=== PATIENT | male | born 1965 | race Caucasian/White ===

== ENCOUNTER → 2017-06-05 16:31 | Outpatient (CLI) | payer OTHER, SELFPAY ==
--- NOTE | 2017-06-05 16:37 | RAD_ITS ---
STUDY: X-RAY - LUMBAR SPINE REASON FOR EXAM: Male, 51 years old. Chronic low back pain. TECHNIQUE: 5 view(s) of the lumbar spine were obtained including oblique views. COMPARISON: None FINDINGS: Normal lumbar lordosis. There is no substantial scoliosis. There is a normal alignment of the vertebrae. Mild anterior spondylosis at the L3-L4 and L4-L5 levels. Normal disc space heights. There is atherosclerotic calcification of the abdominal aorta without a demonstrated aneurysm. RAD/L/S Spine Min 4 Views IMPRESSION: Degenerative changes of the spine, as detailed above. Electronically Signed: Harsh Marin MD at 14:42 EDT Tel [phone], Service support ,
== END ==
PROVIDERS: Family Provider Family Medicine; PCP Family Medicine; Visit Provider Chiropractor
DX: M99.05 Segmental and somatic dysfunction of pelvic region (principal); M99.02 Segmental and somatic dysfunction of thoracic region; M99.03 Segmental and somatic dysfunction of lumbar region
CPT/HCPCS: 72110

== ENCOUNTER 2018-12-31 16:32 | Inpatient (IN) | payer OTHER, SELFPAY ==
[2018-08-19 15:55] VITALS: BMI 28.7
[2018-12-31 16:34] VITALS: BP 103/69; PULSE 83; RESP 16; TEMP 36.3; O2SAT 99; BMI 25.0
--- NOTE | 2018-12-31 17:13 | CT_ITS ---
We are attempting to reach an attending provider to discuss findings. An addendum with communication details will be sent when the communication is complete. STUDY: CT ABDOMEN AND PELVIS WITHOUT CONTRAST REASON FOR EXAM: Male, 53 years old. Left lower quadrant pain. RADIATION DOSAGE (If Supplied By Facility): CTDIvol = ( 6.27 ) mGy, DLP = ( 291.54 ) mGycm TECHNIQUE: Transaxial images were obtained from the dome of the diaphragm to the symphysis pubis without oral contrast, and without intravenous contrast. Sagittal and coronal images were reconstructed. Individualized dose optimization techniques were used for this CT. COMPARISON: None. FINDINGS: The visualized lung bases are unremarkable. The visualized portions of the heart are within normal limits. There is pneumoperitoneum with free intraperitoneal air in the upper abdomen. Normal liver. Normal gallbladder and extrahepatic biliary system. Normal spleen. Normal pancreas. Normal bilateral adrenal glands. Normal right kidney. Normal left kidney. Normal visualized stomach. Normal small intestine. There is diverticulosis, with thickening of the distal descending and sigmoid colon wall, and left lower quadrant pericolonic inflammation changes consistent with acute diverticulitis, series 2 images 100/167 through 120/167. The appendix is visualized and appears normal. There is diffuse atherosclerotic calcification of the abdominal aorta, without a demonstrated aneurysm. Normal inferior vena cava. Normal retroperitoneum. Normal urinary bladder. There are prostatic calcifications. There is a small umbilical hernia containing fat. Normal osseous structures. CT/Abdomen/Pelvis without Cont IMPRESSION: Acute diverticulitis with perforation and free intraperitoneal air. Surgical consultation recommended. Electronically Signed: Rachid Toney MD at 17:57 EDT , Service support ,
--- NOTE | 2018-12-31 17:14 | ED.VISSUMM ---
- ER Visit Summary Date of Service: 12/31/18 Chief Complaint: Left lower quadrant pain History of Present Illness: The patient is a 53 M presenting with left lower quadrant pain. Patient states this started a few days ago. It worsened today. He states he had an episode in November that resolved and the pain started again a few days ago. He has a history of diverticulitis in the past. He denies fever. He has nausea with no vomiting. He denies diarrhea. He has had mild constipation. He did have a bowel movement today. Denies blood in his stool. No urinary complaints. No other complaints. Physical Examination: Vitals are stable. Patient is afebrile. Alert no acute distress. HEENT exam is unremarkable. Neck is supple. Lungs are clear and equal bilaterally. Heart is regular rate and rhythm. Abdomen is soft left lower quadrant tenderness with no rebound or guarding Extremities are unremarkable. Skin is warm and dry. Remainder of exam is unremarkable. Emergency Department Course and Treatment: Patient was given morphine, Zofran IV. CBC, chemistries unremarkable. CT abdomen pelvis shows acute diverticulitis with perforation and free intraperitoneal air. Surgical consultation recommended. Discussed with Dr. Barlow. Patient will be given Cipro Flagyl. He will evaluate the patient in the ED. Disposition: Admission Impression: Diverticulitis with perforation This note was generated with Pad[employer] dictation software. It may contain incorrect words, spelling, and punctuation that were not noted in review of the chart prior to signing ED Disposition - Plan for ED Patient:
[2018-12-31] MEDS: Ondansetron 4 MG/2 ML Vial IV (17:17)
[2018-12-31] MEDS: Morphine 4 MG/ML Syringe IV ×2 (17:17→18:00)
[2018-12-31 17:30] LABS: Absolute Lymphocyte Count 1.69 X10^3/uL (0.83-4.51); Absolute Neutrophil Count 7.1 X10^3/uL (2.0-7.7); Basophil# 0.03 X10^3/uL; Basophil% 0.3 % (0-1); Eosinophil# 0.13 X10^3/uL; Eosinophils% 1.4 % (0-5); Hematocrit 49.1 % (40-54); Hemoglobin 16.3 g/dL (13.0-16.5); Lymphocyte # 1.69 X10^3/ul (4.0); Lymphocyte % 17.8 % (19-41); Mean Corp Hgb Conc 33.2 g/dL (32-36); Mean Corpuscular Hgb 30.8 pg (27.0-32.0); Mean Corpuscular Volume 92.8 fL (80-94); Mean Platelet Vol. 9.9 fl (6.2-12.0); Monocyte# 0.53 X10^3/uL; Monocyte% 5.6 % (0-10); NRBC Flagged by Analyzer 0 % (0-5); Neutrophil # 7.11 X10^3/uL (2.7-7.7); Neutrophil % 74.6 % (47-70); Platelet Count 240 K/mm3 (150-450); RBC Distribution Width CV 12.8 % (11.6-14.6); RBC Distribution Width SD 43.8 fl (35.1-43.9); Red Blood Count 5.29 M/mm3 (4.6-6.2); White Blood Count 9.5 K/mm3 (4.4-11.0)
[2018-12-31 17:42] LABS: Anion Gap 6 (5-15); BUN 18 mg/dL (7-18); BUN/Creat Ratio 17.8 RATIO (10-20); Calcium,Total 8.8 mg/dL (8.5-10.1); Chloride 105 mmol/L (98-107); Creatinine, Serum 1.01 mg/dL (0.70-1.30); EST Glomerular Filtration Rate 82 mL/min (>60); Est Glom Filt Rate - Afr Amer 100 mL/min (>60); Estimated Creatinine Clearance 77.21 ml/min; Glucose 93 mg/dL (74-106); Potassium 4.1 mmol/L (3.5-5.1); Sodium Level 136 mmol/L (136-145)
[2018-12-31 17:58] LABS: Bacteria 0 SEEN /hpf (None Seen); Mucous, Urine 0 SEEN /hpf (<or=2+); Red Blood Cells-Urine 0 SEEN /hpf (0-5); Squamous Epithelial Cells - UA 0 SEEN /hpf (0-5); White Blood Cells 0 SEEN /hpf (0-5)
[2018-12-31 18:03] VITALS: BP 107/69; PULSE 88; RESP 18; O2SAT 98
[2018-12-31 18:34] LABS: Color, Urine Yellow (Yellow); Glucose, Dipstick Normal (Normal); Ketone-Dipstick 5 mg/dl (Negative); Leukocyte Esterase-Dipstick Negative /ul (Negative); Nitrite-Dipstick Negative (Negative); Occult Blood-Urine Negative /ul (Negative); Protein-Dipstick Negative (Negative); Specific Gravity, Urine 1.015 (1.002-1.030); Urine Bilirubin Dipstick Negative (Negative); Urine Clarity Clear (Clear); Urine Urobilinogen Normal (Normal)
[2018-12-31] MEDS: HYDROmorphone 0.5 MG/0.5 ML SYRINGE IV (18:37)
[2018-12-31] MEDS: Ciprofloxacin 400 MG/200 ML BAG 200 MG IV (18:43)
--- NOTE | 2018-12-31 19:16 | PCM.HP.STD ---
History of Present Illness Date of Admission: 12/31/18 Chief Complaint: abdominal pain/pneumoperitoneum The patient is a 53 year old M who presents to [facility] with the 4-5 hour history of abdominal pain. The patient is planning to go to his dentist today when he noted left lower quadrant abdominal pain and then more diffuse abdominal pain including his upper abdomen. Due to this rather significant pain he presented to [facility] emergency department. He had passed flatus earlier in the morning. He denies fever or chills. He notes no nausea or vomiting. On exam he was noted to have diffuse abdominal tenderness by the emergency physician. Laboratory studies were obtained which demonstrated a normal white blood cell count with a mild left shift otherwise normal laboratory studies. CT scan of the abdomen and pelvis was obtained. This demonstrated: FINDINGS: The visualized lung bases are unremarkable. The visualized portions of the heart are within normal limits. There is pneumoperitoneum with free intraperitoneal air in the upper abdomen. Normal liver. Normal gallbladder and extrahepatic biliary system. Normal spleen. Normal pancreas. Normal bilateral adrenal glands. Normal right kidney. Normal left kidney. Normal visualized stomach. Normal small intestine. There is diverticulosis, with thickening of the distal descending and sigmoid colon wall, and left lower quadrant pericolonic inflammation changes consistent with acute diverticulitis, series 2 images 100/167 through 120/167. The appendix is visualized and appears normal. There is diffuse atherosclerotic calcification of the abdominal aorta, without a demonstrated aneurysm. Normal inferior vena cava. Normal retroperitoneum. Normal urinary bladder. There are prostatic calcifications. There is a small umbilical hernia containing fat. Normal osseous structures. the patient was given Dilaudid which is improved his symptoms but he still notes pain. Past Medical History Past Medical History (Chronic Problems): Chronic Problems (Last Reviewed 12/03/18 @ 16:05 by Stephanie Jose) Depression with anxiety (Chronic) Alcohol abuse (Chronic) Tobacco use disorder (Chronic) Medical History: Medical History (Last Reviewed 12/03/18 @ 16:05 by Stephanie Jose) Segmental and somatic dysfunction of pelvic region (Acute) M99.05 Segmental and somatic dysfunction of thoracic region (Acute) M99.02 Segmental and somatic dysfunction of lumbar region (Acute) M99.03 Depression with anxiety (Chronic) Alcohol abuse (Chronic) F10.10 Tobacco use disorder (Chronic) F17.200 Allergies erythromycin base Allergy (Mild, Verified 12/31/18 16:34) itching shellfish derived Allergy (Verified 12/31/18 16:34) Swelling Home Medications: Ambulatory Orders Medication Instructions Recorded omeprazole 20 mg capsule,delayed 20 mg PO DAILY PRN 06/05/17 release Naproxen 500 mg PO DAILY PRN 12/31/18 Surgical History: noncontributory Smoking Status: Former smoker Review of Systems Constitutional: Reports: Fatigue. Denies: Chills, Fever, Weight Change HEENT: Denies: Head Aches, Sinus Congestion, Sinus Drainage Cardiovascular: Denies: Chest Pain, Palpitations Respiratory: Denies: Cough, Shortness of breath at rest, Sputum production Gastrointestinal: Reports: Abdominal Pain. Denies: Nausea, Vomiting Genitourinary: Denies: Dysuria Musculoskeletal: Denies: Joint Pain, Joint Tenderness Skin: Denies: Rash, Wounds Neurological: Denies: Numbness, Tingling, Focal weakness Psychiatric: Denies: Anxiety, Depression, Homicidal Ideations, Suicidal Ideations Hematologic/ Lymphatic: Denies: Easy Bruising, Easy Bleeding VTE Information - Inpt Only VTE Present on Admission: No VTE Mechan Device Prophylaxis: SCD's VTE Pharm Prophylaxis ordered?: No - Physical Exam General: Alert, Oriented x3, Cooperative Lungs: Clear to auscultation, Normal air movement Cardiovascular: Regular rate, No murmurs Abdomen: Bowel Sounds Present, Soft, - - mild diffuse pain with maximal tenderness in left lower quadrant. No diffuse peritoneal signs with some tenderness but not peritoneal findings to palpation in the left and right upper quadrants Vital Signs Temp Pulse Resp BP Pulse Ox 97.4 F L 88 18 107/69 98 12/31/18 16:34 12/31/18 18:03 12/31/18 18:03 12/31/18 18:03 12/31/18 18:03 Oxygen Delivery Method Room Air Weight: 70.307 kg Body Mass Index (BMI) 25.0 Intake and Output for Last 24 Hours 12/29/18 12/30/18 12/31/18 23:59 23:59 23:59 Intake Total 500 / 500 Balance 500 / 500 Laboratory Tests Past 24 Hrs 12/31/18 12/31/18 12/31/18 17:10 17:10 17:55 WBC 9.5 RBC 5.29 Hgb 16.3 Hct 49.1 MCV 92.8 MCH 30.8 MCHC 33.2 RDW Std Deviation 43.8 RDW Coeff of Minnie 12.8 Plt Count 240 MPV 9.9 Immature Gran % (Auto) 0.300 Neut % (Auto) 74.6 H Lymph % (Auto) 17.8 L [place] % (Auto) 5.6 Eos % (Auto) 1.4 Baso % (Auto) 0.3 Absolute Neuts (auto) 7.1 Absolute Lymphs (auto) 1.69 Nucleated RBC % 0 Sodium 136 Potassium 4.1 Chloride 105 Carbon Dioxide 25.0 Anion Gap 6 BUN 18 Creatinine 1.01 Estim Creat Clear Calc 77.21 Est GFR (MDRD) Af Amer 100 Est GFR (MDRD) Non-Af 82 BUN/Creatinine Ratio 17.8 Glucose 93 Calcium 8.8 Urine Color Yellow Urine Clarity Clear Urine pH 6.0 Ur Specific [place] 1.015 Urine Protein Negative Urine Glucose (UA) Normal Urine Ketones 5 H Urine Occult Blood Negative Urine Nitrite Negative Urine Bilirubin Negative Urine Urobilinogen Normal Ur Leukocyte Esterase Negative Urine RBC 0 SEEN Urine WBC 0 SEEN Ur Squamous Epith Cells 0 SEEN Urine Bacteria 0 SEEN Urine Mucus 0 SEEN Assessment/Plan All Active Problems (Last Reviewed 12/03/18 @ 16:05 by Stephanie Jose) Segmental and somatic dysfunction of cervical region (Acute) Segmental and somatic dysfunction of pelvic region (Acute) Segmental and somatic dysfunction of thoracic region (Acute) Segmental and somatic dysfunction of lumbar region (Acute) perforated appendicitis with small to moderate free air, normal white count My plan is to admit the patient for IV antibiotics, bowel rest and IV fluids. we will place SCDs for DVT prophylaxis. We will go with IV parenteral narcotics for pain control. I discussed with the patient and his my plan to hopefully allow to treat him conservatively given the risks of emergency resection and either primary anastomosis unprepped or colostomy. If the patient becomes increasingly septic or worsening symptoms would consider either diverting colostomy or attempt at laparoscopic irrigation given minimal signs of fluid or contamination beyond free air. The patient understands the options of emergency surgery versus IV antibiotic treatment and bowel rest and agrees with the current plan.
[2018-12-31 19:34] VITALS: BMI 25.3
[2018-12-31 19:40] VITALS: BP 110/70; PULSE 82; RESP 18; TEMP 37; O2SAT 100
[2018-12-31] MEDS: metroNIDAZOLE 500 MG/100 ML BAG 100 MG IV (20:05)
[2018-12-31] MEDS: HYDROmorphone 1 MG/ML Syringe IV ×2 (20:47→23:35)
[2018-12-31] MEDS: Lactated Ringers 1,000 ML 100 ML IV (22:17)
[2018-12-31] MEDS: 0.9% Saline Lock 10 ML Syringe IV (22:18)
[2019-01-01 02:00] VITALS: BP 96/58; PULSE 80; RESP 18; TEMP 36.7; O2SAT 100
[2019-01-01 03:55] VITALS: BP 102/60
[2019-01-01] MEDS: HYDROmorphone 1 MG/ML Syringe IV ×8 (03:57→23:11)
[2019-01-01] MEDS: metroNIDAZOLE 500 MG/100 ML BAG 100 MG IV ×3 (05:23→21:13)
[2019-01-01 06:33] LABS: ALB/GLOB Ratio 1.3 RATIO (0.9-2.4); AST(SGOT) 20 U/L (15-37); Alanine Aminotransfer ALT/SGPT 30 U/L (16-61); Albumin, Serum 3.3 g/dL (3.2-5.0); Alkaline Phosphatase 60 U/L (45-117); Anion Gap 5 (5-15); BUN 12 mg/dL (7-18); BUN/Creat Ratio 13.3 RATIO (10-20); Chloride 108 mmol/L (98-107); EST Glomerular Filtration Rate 94 mL/min (>60); Est Glom Filt Rate - Afr Amer 114 mL/min (>60); Estimated Creatinine Clearance 86.64 ml/min; Globulin 2.6 g/dL (2.2-4.2); Glucose 114 mg/dL (74-106); Potassium 4.5 mmol/L (3.5-5.1); Protein, Total 5.9 g/dL (6.4-8.2); Sodium Level 140 mmol/L (136-145)
[2019-01-01 06:59] LABS: Absolute Lymphocyte Count 0.93 X10^3/uL (0.83-4.51); Basophil# 0.02 X10^3/uL; Basophil% 0.2 % (0-1); Differential Indicated SCAN CRITERIA MET; Eosinophil# 0.01 X10^3/uL; Eosinophils% 0.1 % (0-5); Hematocrit 42.5 % (40-54); Lymphocyte # 0.93 X10^3/ul (4.0); Lymphocyte % 7.2 % (19-41); Mean Corp Hgb Conc 32.9 g/dL (32-36); Mean Corpuscular Hgb 31.2 pg (27.0-32.0); Mean Corpuscular Volume 94.7 fL (80-94); Mean Platelet Vol. 9.8 fl (6.2-12.0); Monocyte# 0.86 X10^3/uL; Monocyte% 6.7 % (0-10); NRBC Flagged by Analyzer 0 % (0-5); Neutrophil # 11.01 X10^3/uL (2.7-7.7); Neutrophil % 85.2 % (47-70); POSITIVE MORPHOLOGY YES; Platelet Count 187 K/mm3 (150-450); RBC Distribution Width CV 12.8 % (11.6-14.6); RBC Distribution Width SD 44.7 fl (35.1-43.9); Red Blood Count 4.49 M/mm3 (4.6-6.2); White Blood Count 12.9 K/mm3 (4.4-11.0)
[2019-01-01 07:00] LABS: Differential Comment SCANNED
[2019-01-01 08:00] VITALS: BP 95/58; PULSE 81; RESP 18; TEMP 37.2; O2SAT 100
[2019-01-01] MEDS: Lactated Ringers 1,000 ML 100 ML IV ×2 (08:53→18:41)
[2019-01-01] MEDS: 0.9% Saline Lock 10 ML Syringe IV ×3 (08:53→16:13)
[2019-01-01] MEDS: Ciprofloxacin 400 MG/200 ML BAG 200 MG IV ×2 (10:34→22:19)
--- NOTE | 2019-01-01 14:40 | CASEMGMT ---
RN CM Face to Face with patient for initial transition planning/care coordination assessment. RN CM introduced self and role at [facility]. Patient lying in bed, alert and oriented. Patient willing to participate in assessment and is able to answer all questions appropriately. Care providers, pharmacy, and demographics verified. Patient wishes to discharge home, denies need for home health at this time. Patient states he has no further needs or concerns at this time. EDIS RubyMahsa Oakley updated with diagnosis of alcohol abuse. CM to follow for discharge planning needs that may arise. PCP: Cecilio Specialists: None Preferred Pharmacy: [facility] Insurance: [facility] Prescription Benefit:yes Living Will/HPOA: yes, Ra Carline Alvarez LNOK: Living Arrangements: Patient lives with in a 1 story home with 1 step to enter the home. Patient states he is independent at home. Transportation: self/ DME/HHC: Patient denies DME or previous HHC. Disposition Plan: Patient to discharge home with family support and follow-up plans in place. Rosalinda BLANCON, RN, CM
[2019-01-01 16:13] VITALS: BP 114/68; PULSE 87; RESP 18; TEMP 36.7; O2SAT 100
--- NOTE | 2019-01-01 18:19 | PN.SURG_ITS ---
Subjective: less diffuse pain, more localized to LLQ - Physical Exam General: Alert, Oriented x3, Cooperative Lungs: Clear to auscultation, Normal air movement Cardiovascular: Regular rate, No murmurs Abdomen: Soft, Hypoactive Bowel Sounds, Tender - LLQ Vital Signs Temp Pulse Resp BP Pulse Ox 98.0 F 87 18 114/68 100 01/01/19 16:13 01/01/19 16:13 01/01/19 16:13 01/01/19 16:13 01/01/19 16:13 Oxygen Delivery Method Room Air Weight: 71.214 kg Body Mass Index (BMI) 25.3 Intake and Output for Last 24 Hours 12/30/18 12/31/18 01/01/19 23:59 23:59 23:59 Intake Total 800 / 800 1361.67 / 1361.67 Balance 800 / 800 1361.67 / 1361.67 Laboratory Tests Past 24 Hrs 12/31/18 01/01/19 01/01/19 17:55 05:40 05:40 WBC 12.9 H RBC 4.49 L Hgb 14.0 Hct 42.5 MCV 94.7 H MCH 31.2 MCHC 32.9 RDW Std Deviation 44.7 H RDW Coeff of Minnie 12.8 Plt Count 187 MPV 9.8 Immature Gran % (Auto) 0.600 Neut % (Auto) 85.2 H Lymph % (Auto) 7.2 L [place] % (Auto) 6.7 Eos % (Auto) 0.1 Baso % (Auto) 0.2 Absolute Neuts (auto) 11.0 H Absolute Lymphs (auto) 0.93 Nucleated RBC % 0 Differential Comment SCANNED Sodium 140 Potassium 4.5 Chloride 108 H Carbon Dioxide 27.0 Anion Gap 5 BUN 12 Creatinine 0.90 Estim Creat Clear Calc 86.64 Est GFR (MDRD) Af Amer 114 Est GFR (MDRD) Non-Af 94 BUN/Creatinine Ratio 13.3 Glucose 114 H Calcium 8.0 L Total Bilirubin 1.90 H AST 20 ALT 30 Alkaline Phosphatase 60 Total Protein 5.9 L Albumin 3.3 Globulin 2.6 Albumin/Globulin Ratio 1.3 Urine Color Yellow Urine Clarity Clear Urine pH 6.0 Ur Specific [place] 1.015 Urine Protein Negative Urine Glucose (UA) Normal Urine Ketones 5 H Urine Occult Blood Negative Urine Nitrite Negative Urine Bilirubin Negative Urine Urobilinogen Normal Ur Leukocyte Esterase Negative Urine RBC 0 SEEN Urine WBC 0 SEEN Ur Squamous Epith Cells 0 SEEN Urine Bacteria 0 SEEN Urine Mucus 0 SEEN Medical Necessity - Tobacco Use Smoking Status: Former smoker Tobacco Use: Chew Assessment/Plan All Active Problems (Last Reviewed 12/03/18 @ 16:05 by Stephanie Jose) Segmental and somatic dysfunction of cervical region (Acute) Segmental and somatic dysfunction of pelvic region (Acute) Segmental and somatic dysfunction of thoracic region (Acute) Segmental and somatic dysfunction of lumbar region (Acute) perforated appendicitis with small to moderate free air, normal white count My plan is to admit the patient for IV antibiotics, bowel rest and IV fluids. we will place SCDs for DVT prophylaxis. We will go with IV parenteral narcotics for pain control. I discussed with the patient and his my plan to hopefully allow to treat him conservatively given the risks of emergency resection and either primary anastomosis unprepped or colostomy. If the patient becomes increasingly septic or worsening symptoms would consider either diverting colostomy or attempt at laparoscopic irrigation given minimal signs of fluid or contamination beyond free air. The patient understands the options of emergency surgery versus IV antibiotic treatment and bowel rest and agrees with the current plan.
[2019-01-01 18:50] VITALS: BP 128/68; PULSE 94; RESP 16; O2SAT 96
[2019-01-01 19:37] VITALS: BP 109/60; PULSE 98; RESP 16; TEMP 36.9; O2SAT 96
[2019-01-02] MEDS: HYDROmorphone 1 MG/ML Syringe IV ×5 (01:11→19:40)
[2019-01-02 01:13] VITALS: BP 105/65; PULSE 88; RESP 16; TEMP 36.7; O2SAT 96
[2019-01-02] MEDS: Lactated Ringers 1,000 ML 100 ML IV ×2 (05:20→18:10)
[2019-01-02] MEDS: metroNIDAZOLE 500 MG/100 ML BAG 100 MG IV ×3 (05:22→22:25)
--- NOTE | 2019-01-02 06:00 | RAD_ITS ---
HISTORY: Abdominal PainRAD - Abdomen ADDITIONAL HISTORY: None. COMPARISON: CT 12/31/2018 Technique: Supine and upright abdominal radiograph. Number of images including paperwork: 3 FINDINGS: FREE AIR: None detected. BOWEL GAS PATTERN: Nonobstructive. CALCIFICATIONS: No definite urinary tract calculi. ORGANS: No evidence of organomegaly. SOFT TISSUES: Unremarkable. BONES: No acute skeletal findings. Basilar linear opacities suggestive of subsegmental atelectasis. RAD/Abd Inc Decub and/or Erect IMPRESSION: No acute abdominal abnormality is radiographically apparent. at 0555 Reported and signed by: Alka Gupta MD Electronically Signed: Alka Gupta MD at 5:55 EDT Tel , Service support ,
[2019-01-02 06:39] LABS: Absolute Lymphocyte Count 0.62 X10^3/uL (0.83-4.51); Absolute Neutrophil Count 10.2 X10^3/uL (2.0-7.7); Basophil# 0.02 X10^3/uL; Basophil% 0.2 % (0-1); Eosinophil# 0.09 X10^3/uL; Eosinophils% 0.8 % (0-5); Hematocrit 40.1 % (40-54); Hemoglobin 13.2 g/dL (13.0-16.5); Lymphocyte # 0.62 X10^3/ul (4.0); Lymphocyte % 5.2 % (19-41); Mean Corp Hgb Conc 32.9 g/dL (32-36); Mean Corpuscular Hgb 31.4 pg (27.0-32.0); Mean Corpuscular Volume 95.2 fL (80-94); Mean Platelet Vol. 10.4 fl (6.2-12.0); Monocyte# 0.87 X10^3/uL; Monocyte% 7.3 % (0-10); NRBC Flagged by Analyzer 0 % (0-5); Neutrophil # 10.17 X10^3/uL (2.7-7.7); Neutrophil % 84.8 % (47-70); Platelet Count 170 K/mm3 (150-450); RBC Distribution Width CV 13.2 % (11.6-14.6); RBC Distribution Width SD 46.3 fl (35.1-43.9); Red Blood Count 4.21 M/mm3 (4.6-6.2)
[2019-01-02 06:58] LABS: AST(SGOT) 25 U/L (15-37); Alanine Aminotransfer ALT/SGPT 33 U/L (16-61); Albumin, Serum 3.1 g/dL (3.2-5.0); Alkaline Phosphatase 75 U/L (45-117); Anion Gap 5 (5-15); BUN 13 mg/dL (7-18); Calcium,Total 8.5 mg/dL (8.5-10.1); Chloride 104 mmol/L (98-107); Creatinine, Serum 0.87 mg/dL (0.70-1.30); EST Glomerular Filtration Rate 98 mL/min (>60); Est Glom Filt Rate - Afr Amer 119 mL/min (>60); Estimated Creatinine Clearance 89.63 ml/min; Glucose 104 mg/dL (74-106); Protein, Total 6.1 g/dL (6.4-8.2); Sodium Level 135 mmol/L (136-145)
--- NOTE | 2019-01-02 08:00 | PCM.PN.SRG ---
Subjective: less pain this morning, no flatus - Physical Exam General: Alert, Oriented x3 Lungs: Clear to auscultation, Normal air movement Cardiovascular: Regular rate, No murmurs Abdomen: Bowel Sounds Present, Soft, Tender - left lower quadrant, no diffuse peritoneal signs Vital Signs Temp Pulse Resp BP Pulse Ox 98.0 F 88 16 105/65 96 01/02/19 01:13 01/02/19 01:13 01/02/19 01:13 01/02/19 01:13 01/02/19 01:13 Oxygen Delivery Method Room Air Weight: 71.214 kg Body Mass Index (BMI) 25.3 Intake and Output for Last 24 Hours 12/31/18 01/01/19 01/02/19 23:59 23:59 23:59 Intake Total 800 / 800 3551.67 / 3551.67 648.33 / 648.33 Balance 800 / 800 3551.67 / 3551.67 648.33 / 648.33 Laboratory Tests Past 24 Hrs 01/02/19 01/02/19 05:54 05:54 WBC 12.0 H RBC 4.21 L Hgb 13.2 Hct 40.1 MCV 95.2 H MCH 31.4 MCHC 32.9 RDW Std Deviation 46.3 H RDW Coeff of Minnie 13.2 Plt Count 170 MPV 10.4 Immature Gran % (Auto) 1.700 H Neut % (Auto) 84.8 H Lymph % (Auto) 5.2 L [place] % (Auto) 7.3 Eos % (Auto) 0.8 Baso % (Auto) 0.2 Absolute Neuts (auto) 10.2 H Absolute Lymphs (auto) 0.62 L Nucleated RBC % 0 Sodium 135 L Potassium 4.0 Chloride 104 Carbon Dioxide 26.0 Anion Gap 5 BUN 13 Creatinine 0.87 Estim Creat Clear Calc 89.63 Est GFR (MDRD) Af Amer 119 Est GFR (MDRD) Non-Af 98 BUN/Creatinine Ratio 15.0 Glucose 104 Calcium 8.5 Total Bilirubin 1.40 H AST 25 ALT 33 Alkaline Phosphatase 75 Total Protein 6.1 L Albumin 3.1 L Globulin 3.0 Albumin/Globulin Ratio 1.0 Medical Necessity - Tobacco Use Smoking Status: Former smoker Tobacco Use: Chew Assessment/Plan All Active Problems (Last Reviewed 12/03/18 @ 16:05 by Stephanie Jose) Segmental and somatic dysfunction of cervical region (Acute) Segmental and somatic dysfunction of pelvic region (Acute) Segmental and somatic dysfunction of thoracic region (Acute) Segmental and somatic dysfunction of lumbar region (Acute) perforated appendicitis with small to moderate free air, normal white count My plan is to admit the patient for IV antibiotics and IV fluids. we will place SCDs for DVT prophylaxis. We will go with IV parenteral narcotics for pain control. We'll start liquids as his pain is improving. I discussed with the patient and his my plan to hopefully allow to treat him conservatively given the risks of emergency resection and either primary anastomosis unprepped or colostomy. If the patient becomes increasingly septic or worsening symptoms would consider either diverting colostomy or attempt at laparoscopic irrigation given minimal signs of fluid or contamination beyond free air. The patient understands the options of emergency surgery versus IV antibiotic treatment and bowel rest and agrees with the current plan.
[2019-01-02] MEDS: Ciprofloxacin 400 MG/200 ML BAG 200 MG IV ×2 (10:10→21:18)
[2019-01-02 10:15] VITALS: BP 136/78; PULSE 106; RESP 18; TEMP 36.7; O2SAT 96
--- NOTE | 2019-01-02 12:21 | CASEMGMT ---
SW spoke w/pt briefly in regard to mental health and alcohol use. SW asked pt initially about history of anxiety and depression. Pt denies that he is struggling with either, states is feeling fine mentally, not in treatment or on medication. SW also asked pt about history of alcohol abuse. Pt states he has a beer when he goes out, does not drink daily. Pt does not perceive his alcohol consumption as problematic. Pt declined any referrals or resources for mental health or alcohol abuse. SW remains available should any other needs arise. KATY Jolley
[2019-01-02 14:25] VITALS: BP 122/69; PULSE 88; RESP 16; TEMP 36.7; O2SAT 99
[2019-01-02] MEDS: oxyCODONE 5 MG Tablet PO (16:59)
[2019-01-02 19:43] VITALS: BP 127/74; PULSE 92; RESP 16; TEMP 37.7; O2SAT 98
[2019-01-02] MEDS: 0.9% Saline Lock 10 ML Syringe IV (21:14)
[2019-01-03] MEDS: HYDROmorphone 1 MG/ML Syringe IV ×7 (00:17→19:58)
[2019-01-03 01:42] VITALS: BP 122/75; PULSE 90; RESP 16; TEMP 37.1; O2SAT 99
[2019-01-03] MEDS: Lactated Ringers 1,000 ML 100 ML IV ×2 (05:33→17:46)
[2019-01-03] MEDS: metroNIDAZOLE 500 MG/100 ML BAG 100 MG IV ×3 (05:35→21:12)
--- NOTE | 2019-01-03 06:08 | CT_ITS ---
STUDY: CT ABDOMEN AND PELVIS WITHOUT CONTRAST REASON FOR EXAM: Male, 53 years old. Diverticulitis left lower quadrant abdominal pain RADIATION DOSAGE (If Supplied By Facility): CTDIvol = ( 6.45 ) mGy, DLP = ( 343.32 ) mGycm TECHNIQUE: Transaxial images were obtained from the dome of the diaphragm to the symphysis pubis without oral contrast, and without intravenous contrast. Sagittal and coronal images were reconstructed. Individualized dose optimization techniques were used for this CT. COMPARISON: CT abdomen and pelvis from 01/01/2019 FINDINGS: The visualized lung bases demonstrate bibasilar atelectasis with trace bilateral pleural effusions. The visualized portions of the heart demonstrates scattered coronary artery calcifications. Normal liver. Gallbladder is mildly dilated. Normal spleen. Normal pancreas. Normal bilateral adrenal glands. Normal right kidney. Normal left kidney. Normal visualized stomach. Normal small intestine. There are multiple colonic diverticula consistent with diverticulosis. There is fat stranding changes adjacent to the distal descending and proximal sigmoid colon within the left lower quadrant. Again seen are scattered locules of free intraperitoneal gas. The appendix is nonvisualized. There is diffuse atherosclerotic calcification of the abdominal aorta, without a demonstrated aneurysm. Normal inferior vena cava. Normal retroperitoneum. Normal urinary bladder. There is a small umbilical hernia containing fat. Normal osseous structures. CT/Abdomen/Pelvis without Cont IMPRESSION: Diverticulitis with relatively small amount of free intraperitoneal gas locules as seen on prior study. No evidence for abscess formation. Trace bilateral pleural effusions with lower lobe atelectasis which is new from comparison. Electronically Signed: [place], at 6:51 EDT Tel , Service support ,
[2019-01-03] MEDS: 0.9% Saline Lock 10 ML Syringe IV ×2 (06:40→19:58)
--- NOTE | 2019-01-03 06:40 | PCM.PN.SRG ---
Subjective: some increased left lower quadrant pain and pain through to his back, passing some flatus - Physical Exam General: Alert, Oriented x3, Cooperative Lungs: Clear to auscultation, Normal air movement Cardiovascular: Regular rate, No murmurs Abdomen: Bowel Sounds Present, Soft, Tender - left lower quadrant without diffuse peritoneal signs Vital Signs Temp Pulse Resp BP Pulse Ox 98.7 F 90 16 122/75 H 99 01/03/19 01:42 01/03/19 01:42 01/03/19 01:42 01/03/19 01:42 01/03/19 01:42 Oxygen Delivery Method Room Air Weight: 71.214 kg Body Mass Index (BMI) 25.3 Intake and Output for Last 24 Hours 01/01/19 01/02/19 01/03/19 23:59 23:59 23:59 Intake Total 3551.67 / 3551.67 3240.00 / 3240.00 750.00 / 750.00 Balance 3551.67 / 3551.67 3240.00 / 3240.00 750.00 / 750.00 Laboratory Tests Past 24 Hrs 01/02/19 05:54 Sodium 135 L Potassium 4.0 Chloride 104 Carbon Dioxide 26.0 Anion Gap 5 BUN 13 Creatinine 0.87 Estim Creat Clear Calc 89.63 Est GFR (MDRD) Af Amer 119 Est GFR (MDRD) Non-Af 98 BUN/Creatinine Ratio 15.0 Glucose 104 Calcium 8.5 Total Bilirubin 1.40 H AST 25 ALT 33 Alkaline Phosphatase 75 Total Protein 6.1 L Albumin 3.1 L Globulin 3.0 Albumin/Globulin Ratio 1.0 Medical Necessity - Tobacco Use Smoking Status: Former smoker Tobacco Use: Chew Assessment/Plan All Active Problems (Last Reviewed 12/03/18 @ 16:05 by Stephanie Jose) Segmental and somatic dysfunction of cervical region (Acute) Segmental and somatic dysfunction of pelvic region (Acute) Segmental and somatic dysfunction of thoracic region (Acute) Segmental and somatic dysfunction of lumbar region (Acute) perforated appendicitis with small to moderate free air, normal white count My plan is to admit the patient for IV antibiotics and IV fluids. we will place SCDs for DVT prophylaxis. We will go with IV parenteral narcotics for pain control. We'll start liquids as his pain is improving. patient noted his pain increased somewhat overnight low-grade fever, we will repeat CBC and repeat CT scan to assess for drainable collections. I discussed with the patient and his my plan to hopefully allow to treat him conservatively given the risks of emergency resection and either primary anastomosis unprepped or colostomy. If the patient becomes increasingly septic or worsening symptoms would consider either diverting colostomy or attempt at laparoscopic irrigation given minimal signs of fluid or contamination beyond free air. The patient understands the options of emergency surgery versus IV antibiotic treatment and bowel rest and agrees with the current plan.
[2019-01-03 07:15] LABS: Absolute Lymphocyte Count 0.51 X10^3/uL (0.83-4.51); Absolute Neutrophil Count 7.9 X10^3/uL (2.0-7.7); Basophil# 0.03 X10^3/uL; Basophil% 0.3 % (0-1); Eosinophil# 0.06 X10^3/uL; Eosinophils% 0.6 % (0-5); Hematocrit 40.7 % (40-54); Hemoglobin 13.4 g/dL (13.0-16.5); Lymphocyte # 0.51 X10^3/ul (4.0); Lymphocyte % 5.3 % (19-41); Mean Corp Hgb Conc 32.9 g/dL (32-36); Mean Corpuscular Hgb 31.1 pg (27.0-32.0); Mean Corpuscular Volume 94.4 fL (80-94); Mean Platelet Vol. 9.8 fl (6.2-12.0); Monocyte# 0.93 X10^3/uL; Monocyte% 9.7 % (0-10); NRBC Flagged by Analyzer 0 % (0-5); Neutrophil # 7.91 X10^3/uL (2.7-7.7); Neutrophil % 82.7 % (47-70); POSITIVE DIFFERENTIAL YES; Platelet Count 169 K/mm3 (150-450); RBC Distribution Width CV 12.8 % (11.6-14.6); RBC Distribution Width SD 44.3 fl (35.1-43.9); Red Blood Count 4.31 M/mm3 (4.6-6.2); White Blood Count 9.6 K/mm3 (4.4-11.0)
[2019-01-03 07:40] VITALS: BP 155/74; PULSE 85; RESP 18; TEMP 37.2; O2SAT 98
[2019-01-03] MEDS: Ciprofloxacin 400 MG/200 ML BAG 200 MG IV ×2 (09:43→22:21)
[2019-01-03 13:00] VITALS: RESP 18; O2SAT 99
[2019-01-03 15:00] VITALS: BP 141/87; PULSE 85; RESP 18; TEMP 36.8; O2SAT 99
[2019-01-03 20:00] VITALS: BP 137/82; PULSE 91; RESP 18; TEMP 37.2; O2SAT 98
[2019-01-03] MEDS: oxyCODONE 5 MG Tablet PO (21:11)
[2019-01-04 02:00] VITALS: BP 117/68; PULSE 66; RESP 18; TEMP 36.8; O2SAT 92
[2019-01-04] MEDS: oxyCODONE 5 MG Tablet PO ×2 (02:02→07:45)
[2019-01-04] MEDS: Lactated Ringers 1,000 ML 100 ML IV (05:11)
[2019-01-04] MEDS: metroNIDAZOLE 500 MG/100 ML BAG 100 MG IV (05:11)
--- NOTE | 2019-01-04 07:03 | DCINST_ITS ---
You will use the following diet at home:: Other - low residue until pain improved and moving bowels Discharge Activity: Return to Normal Activity Allergies/Adverse Reactions: Allergies erythromycin base Allergy (Mild, Verified 12/31/18 16:34) itching shellfish derived Allergy (Verified 12/31/18 16:34) Swelling Medications to take at Discharge omeprazole 20 mg capsule,delayed release 20 mg PO DAILY PRN 06/05/17 Naproxen 500 mg PO DAILY PRN 12/31/18 Ciprofloxacin [Cipro] 500 mg PO BID #20 tab 01/04/19 Metronidazole [Flagyl] 500 mg PO TID #30 tab 01/04/19 Oxycodone HCl/Acetaminophen [Percocet 5/325] 1 tab PO Q4H PRN PRN 3 Days #10 tab 01/04/19 The following prescriptions were given: Ciprofloxacin [Cipro] 500 mg PO BID #20 tab Prescription Printed Metronidazole [Flagyl] 500 mg PO TID #30 tab Prescription Printed Oxycodone HCl/Acetaminophen [Percocet 5/325] 1 tab PO Q4H PRN PRN 3 Days #10 tab PRN Reason: Pain Prescription Printed Primary Care Physician: Gabriel Hernandes III, MD [Primary Care Provider] - Test Results: Test results from this visit will be discussed in further detail at your follow- up appointment, if applicable. Please Follow Up With: Jerome Barlow MD When: sunday or
[2019-01-04 07:55] VITALS: BP 121/81; PULSE 82; RESP 18; TEMP 36.7; O2SAT 100
--- NOTE | 2019-01-04 09:35 | PCM.DC.SUM ---
Discharge Date and Diagnosis Date of Admission: 12/31/18 Date of Discharge: 01/04/19 - Primary Discharge Diagnosis diverticulitis - Secondary Discharge Diagnosis Chronic Problems (Last Reviewed 12/03/18 @ 16:05 by Stephnaie Jose) Depression with anxiety (Chronic) Alcohol abuse (Chronic) Tobacco use disorder (Chronic) Hospital Course and Treatment Operations: None Summary of Care Provided: The patient is a 53 year old M with a 1 day history of abdominal pain. CT scan demonstrated small amount of free air and proximal sigmoid inflammation. The patient was admitted, bowel rest and antibiotics. pain slowly improved. follow up CT scan demonstrated stable sigmoid inflammation and less and small amount of free air. He was passing flatus, afbrile with noramlizing WBC count and tolerating liquids. - Physical Exam General: Alert, Oriented x3, Cooperative Lungs: Clear to auscultation, Normal air movement Cardiovascular: Regular rate, No murmurs Abdomen: Bowel Sounds Present, Soft, Tender - LLQ Vital Signs Temp Pulse Resp BP Pulse Ox 98.1 F 82 18 121/81 H 100 01/04/19 07:55 01/04/19 07:55 01/04/19 07:55 01/04/19 07:55 01/04/19 07:55 Oxygen Delivery Method Room Air Weight: 71.214 kg Body Mass Index (BMI) 25.3 Intake and Output for Last 24 Hours 01/02/19 01/03/19 01/04/19 23:59 23:59 23:59 Intake Total 3240.00 / 3240.00 3711.66 / 3711.66 1111.67 / 1111.67 Balance 3240.00 / 3240.00 3711.66 / 3711.66 1111.67 / 1111.67 Discharge Activity: Return to Normal Activity Home Medications: Medications to take at Discharge omeprazole 20 mg capsule,delayed release 20 mg PO DAILY PRN 06/05/17 RX: Naproxen 500 mg PO DAILY PRN 12/31/18 Ciprofloxacin [Cipro] 500 mg PO BID #20 tab 01/04/19 Metronidazole [Flagyl] 500 mg PO TID #30 tab 01/04/19 Oxycodone HCl/Acetaminophen [Percocet 5/325] 1 tab PO Q4H PRN PRN 3 Days #10 tab 01/04/19 Following Prescrptions Were Given to Patient: Ciprofloxacin [Cipro] 500 mg PO BID #20 tab Prescription Printed Metronidazole [Flagyl] 500 mg PO TID #30 tab Prescription Printed Oxycodone HCl/Acetaminophen [Percocet 5/325] 1 tab PO Q4H PRN PRN 3 Days #10 tab PRN Reason: Pain Prescription Printed Primary Care Physician: Gabriel Hernandes III, MD [Primary Care Provider] - Please Follow Up With: Jerome Barlow MD When: sunday or Medical Necessity - Tobacco Use Smoking Status: Former smoker Tobacco Use: Chew Meaningful Use Info Meaningful Use Diagnoses (Choose all that apply): None applicable
== END 2019-01-04 08:55 | disposition home or self-care (01) | DRG 392 ==
LOC: ED 17:28 → MS3 19:13
PROVIDERS: Admitting Provider Surgery; Emergency Provider Emergency Medicine; Family Provider Family Medicine; PCP Family Medicine; Referring Provider Surgery; Visit Provider Surgery
DX: K57.20 Diverticulitis of large intestine with perforation and abscess without bleeding (principal); F10.10 Alcohol abuse, uncomplicated; F41.8 Other specified anxiety disorders; Z72.0 Tobacco use
CPT/HCPCS: 36415; 74019; 74176; 80048; 80053; 81001; 85025; 99285; J7030; J7120; A4216; J0744; J2405

== ENCOUNTER → 2020-05-20 08:13 | Outpatient (CLI) | payer OTHER, SELFPAY ==
[2018-12-31 19:34] VITALS: BMI 25.3
--- NOTE | 2020-05-20 08:19 | CT_ITS ---
STUDY: CT ABDOMEN AND PELVIS WITH CONTRAST REASON FOR EXAM: Male, 54 years old. DIVERTICULITIS/COLITIS -- ORAL AND IV CONTRAST RADIATION DOSAGE (If Supplied By Facility): CTDIvol = ( 13.11 ) mGy, DLP = ( 644.49 ) mGycm TECHNIQUE: Transaxial images were obtained from the dome of the diaphragm to the symphysis pubis with oral contrast. Oral and amp; IV Readi-CAT and amp; 100mL Isovue-300 was administered. Sagittal and coronal images were reconstructed. Individualized dose optimization techniques were used for this CT. COMPARISON: Comparison is made with prior study dated 01/03/2019. FINDINGS: The visualized lung bases are unremarkable. The visualized portions of the heart are within normal limits. Normal liver. Normal gallbladder and extrahepatic biliary system. Normal spleen. Normal pancreas. Normal bilateral adrenal glands. Normal right kidney. Normal left kidney. Normal visualized stomach. Normal small intestine. There are multiple colonic diverticula consistent with diverticulosis. The appendix is visualized and appears normal. There is scattered atherosclerotic calcification of the abdominal aorta, without a demonstrated aneurysm. Normal inferior vena cava. Normal retroperitoneum. Normal urinary bladder. There are prostatic calcifications. Normal abdominal wall. There are mild degenerative changes of the visualized lumbar spine. CT/Abdomen/Pelvis WITH Contrast IMPRESSION: Sigmoid diverticulosis. Electronically Signed: Harsh Marin MD at 9:33 EST , Service support ,
== END ==
PROVIDERS: PCP Family Medicine; Referring Provider Internal Medicine Gastroenterology; Visit Provider Internal Medicine Gastroenterology
DX: K57.92 Diverticulitis of intestine, part unspecified, without perforation or abscess without bleeding (principal); K52.9 Noninfective gastroenteritis and colitis, unspecified
CPT/HCPCS: 74177; Q9967

== ENCOUNTER 2021-06-07 06:33 | Outpatient (CLI) | payer OTHER, SELFPAY ==
[2021-06-08 17:04] LABS: Giardia Lamblia, Stool EIA Negative (Negative)
[2021-06-16 18:45] LABS: Calprotectin, Stool 17 ug/g (0-120)
== END 2021-06-07 23:59 | disposition home or self-care (01) ==
LOC: LABSPEC 06:34
PROVIDERS: PCP Family Medicine; Referring Provider Internal Medicine Gastroenterology; Visit Provider Internal Medicine Gastroenterology
DX: R19.7 Diarrhea, unspecified (principal)
CPT/HCPCS: 83630; 83993; 87329; 87493; 87506

== ENCOUNTER → 2021-07-14 | Outpatient (CLI) | payer OTHER, SELFPAY ==
[2021-07-14 07:04] LABS: Erythrocyte Sedimentation Rate 4 mm/hr (0-20)
[2021-07-14 07:06] LABS: Absolute Lymphocyte Count 1.81 X10^3/uL (0.83-4.51); Absolute Neutrophil Count 2.9 X10^3/uL (2.0-7.7); Basophil# 0.03 X10^3/uL; Basophil% 0.5 % (0-1); Eosinophil# 0.27 X10^3/uL; Eosinophils% 4.7 % (0-5); Hematocrit 50.8 % (40-54); Hemoglobin 16.7 g/dL (13.0-16.5); Lymphocyte # 1.81 X10^3/ul (0.83-4.51); Lymphocyte % 31.8 % (19-41); Mean Corp Hgb Conc 32.9 g/dL (32-36); Mean Corpuscular Hgb 31.2 pg (27.0-32.0); Mean Platelet Vol. 9.4 fl (6.2-12.0); Monocyte# 0.66 X10^3/uL; Monocyte% 11.6 % (0-10); NRBC Flagged by Analyzer 0 % (0-5); Neutrophil # 2.86 X10^3/uL (2.7-7.7); Neutrophil % 50.2 % (47-70); Platelet Count 227 K/mm3 (150-450); RBC Distribution Width CV 13.4 % (11.6-14.6); RBC Distribution Width SD 47.3 fl (35.1-43.9); Red Blood Count 5.35 M/mm3 (4.6-6.2); White Blood Count 5.7 K/mm3 (4.4-11.0)
[2021-07-14 07:32] LABS: ALB/GLOB Ratio 1.1 RATIO (0.9-2.4); AST(SGOT) 37 U/L (15-37); Alanine Aminotransfer ALT/SGPT 37 U/L (16-61); Albumin, Serum 3.7 g/dL (3.2-5.0); Alkaline Phosphatase 73 U/L (45-117); Anion Gap 3 (5-15); BUN 15 mg/dL (7-18); BUN/Creat Ratio 12.6 RATIO (10-20); CRP < 2.90 mg/L (0.0-3.0); Calcium,Total 9.1 mg/dL (8.5-10.1); Chloride 109 mmol/L (98-107); Creatinine, Serum 1.19 mg/dL (0.70-1.30); EST Glomerular Filtration Rate 68 mL/min (>60); Est Glom Filt Rate - Afr Amer 82 mL/min (>60); Globulin 3.3 g/dL (2.2-4.2); Glucose 103 mg/dL (74-106); LDH 189 U/L (87-241); Potassium 4.3 mmol/L (3.5-5.1); Sodium Level 139 mmol/L (136-145)
[2021-07-17 20:07] LABS: Anti-Centromere B Ab <0.2 AI (0.0-0.9); Anti-Chromatin 0.2 AI (0.0-0.9); Anti-Jo <0.2 AI (0.0-0.9); Anti-Scleroderma-70 AB <0.2 AI (0.0-0.9); RNP Ab <0.2 AI (0.0-0.9); SJOGREN'S Anti-SS-A test < 0.2 AI (0.0-0.9); SJOGREN'S Anti-SS-B test < 0.2 AI (0.0-0.9); Smith Ab <0.2 AI (0.0-0.9)
[2021-07-17 20:43] LABS: Anti-dsDNA Ab <1 IU/mL (0-9); Calprotectin, Stool 56 ug/g (0-120)
[2021-07-22 08:11] LABS: Albumin 3.9 g/dL (2.9-4.4); Alpha-1-Globulins 0.2 g/dL (0.0-0.4); Alpha-2-Globulins 0.6 g/dL (0.4-1.0); Cytoplasmic Ab (C-ANCA) <1:20 titer (Neg:<1:20); Endomysial Antibody IgA Negative (Negative); Gamma Globulin 0.8 g/dL (0.4-1.8); Immunoglobulin A 172 mg/dL (90-386); Immunoglobulin E 10 IU/mL (6-495); Immunoglobulin G 887 mg/dL (603-1613); Immunoglobulin M 104 mg/dL (20-172); PROEL- TOTAL PROTEIN 6.6 g/dL (6.0-8.5)
[2021-07-22 08:34] LABS: Perinuclear Ab (P-ANCA) <1:20 titer (Neg:<1:20); t-Transglutaminase IgA <2 U/mL (0-3)
== END | disposition home or self-care (01) ==
LOC: LAB 06:39
PROVIDERS: PCP Family Medicine; Referring Provider Internal Medicine Gastroenterology; Visit Provider Internal Medicine Gastroenterology
DX: R19.7 Diarrhea, unspecified (principal)
CPT/HCPCS: 36415; 80053; 82784; 82785; 83516; 83615; 83630; 83993; 84165; 85025; 85652; 86140; 86225; 86235; 86255; 86256; 86334; 87177; 87209; 87329; 87493; 87506

== ENCOUNTER → 2021-10-21 | Outpatient (CLI) | payer OTHER, SELFPAY ==
[2021-10-21 09:32] LABS: Erythrocyte Sedimentation Rate 3 mm/hr (0-20)
[2021-10-21 09:57] LABS: CRP < 2.90 mg/L (0.0-3.0)
== END | disposition home or self-care (01) ==
PROVIDERS: PCP Family Medicine; Visit Provider Internal Medicine Gastroenterology
DX: K51.90 Ulcerative colitis, unspecified, without complications (principal)
CPT/HCPCS: 36415; 85652; 86140

== ENCOUNTER → 2021-10-25 | Outpatient (CLI) | payer OTHER, SELFPAY | END | disposition home or self-care (01) | LOC: LABSPEC 06:51 | PROVIDERS: PCP Family Medicine; Visit Provider Internal Medicine Gastroenterology | DX: K51.90 Ulcerative colitis, unspecified, without complications (principal) | CPT/HCPCS: 83630; 83993 ==

== ENCOUNTER → 2021-11-15 | Outpatient (CLI) | payer OTHER, SELFPAY ==
--- NOTE | 2021-11-15 14:05 | RAD_ITS ---
EXAM: XR ABDOMEN, 1 VIEW CLINICAL INDICATION: agile capsule TECHNIQUE: Frontal supine view of the abdomen/pelvis. This report was created using [email or web address] report generation technology. COMPARISON: None. FINDINGS: LOWER THORAX: No acute pathology. GASTROINTESTINAL TRACT: Unremarkable. Non-obstructive. No bowel or stomach distention. ORGANS: Unremarkable as visualized. No organomegaly. No abnormal calcifications. BONES/JOINTS: No acute pathology. SOFT TISSUES: No acute pathology. OTHER FINDINGS: Capsule is not seen. RAD/Abdomen Single View IMPRESSION: Capsule is not seen. Electronically Signed: Norberto Kent MD at 16:51 EDT ,
== END | disposition home or self-care (01) ==
PROVIDERS: PCP Family Medicine; Referring Provider Internal Medicine Gastroenterology; Visit Provider Internal Medicine Gastroenterology
DX: K51.90 Ulcerative colitis, unspecified, without complications (principal)
CPT/HCPCS: 74018

== ENCOUNTER → 2022-06-21 | Outpatient (CLI) | payer OTHER, SELFPAY ==
[2022-06-21 16:22] LABS: Absolute Lymphocyte Count 2.21 X10^3/uL (0.83-4.51); Absolute Neutrophil Count 4.3 X10^3/uL (2.0-7.7); Basophil# 0.06 X10^3/uL; Basophil% 0.8 % (0-1); Eosinophil# 0.26 X10^3/uL; Eosinophils% 3.3 % (0-5); Hematocrit 47.2 % (40-54); Hemoglobin 15.8 g/dL (13.0-16.5); Lymphocyte # 2.21 X10^3/ul (0.83-4.51); Lymphocyte % 28.4 % (19-41); Mean Corp Hgb Conc 33.5 g/dL (32-36); Mean Corpuscular Hgb 31.4 pg (27.0-32.0); Mean Corpuscular Volume 93.8 fL (80-94); Mean Platelet Vol. 9.5 fl (6.2-12.0); Monocyte# 0.93 X10^3/uL; NRBC Flagged by Analyzer 0 % (0-5); Neutrophil # 4.27 X10^3/uL (2.7-7.7); Neutrophil % 54.9 % (47-70); Platelet Count 235 K/mm3 (150-450); RBC Distribution Width CV 12.9 % (11.6-14.6); Red Blood Count 5.03 M/mm3 (4.6-6.2); White Blood Count 7.8 K/mm3 (4.4-11.0)
[2022-06-21 17:01] LABS: ALB/GLOB Ratio 1.3 RATIO (0.9-2.4); AST(SGOT) 28 U/L (15-37); Alanine Aminotransfer ALT/SGPT 24 U/L (16-61); Alkaline Phosphatase 74 U/L (45-117); Anion Gap 6 (5-15); BUN 13 mg/dL (7-18); BUN/Creat Ratio 11.6 RATIO (10-20); CRP < 2.90 mg/L (0.0-3.0); Calcium,Total 8.8 mg/dL (8.5-10.1); Chloride 105 mmol/L (98-107); Creatinine, Serum 1.12 mg/dL (0.70-1.30); EST Glomerular Filtration Rate 72 mL/min (>60); Est Glom Filt Rate - Afr Amer 87 mL/min (>60); Glucose 95 mg/dL (74-106); Potassium 4.1 mmol/L (3.5-5.1); Sodium Level 137 mmol/L (136-145)
[2022-06-21 17:25] LABS: Erythrocyte Sedimentation Rate 1 mm/hr (0-20)
== END | disposition home or self-care (01) ==
LOC: LAB 15:48
PROVIDERS: PCP Family Medicine; Referring Provider Internal Medicine Gastroenterology; Visit Provider Internal Medicine Gastroenterology
DX: R19.7 Diarrhea, unspecified (principal)
CPT/HCPCS: 36415; 80053; 85025; 85652; 86140

== ENCOUNTER → 2022-06-22 | Outpatient (CLI) | payer OTHER, SELFPAY ==
[2022-06-26 11:13] LABS: Calprotectin, Stool 23 ug/g (0-120)
== END | disposition home or self-care (01) ==
LOC: LABSPEC 06:28
PROVIDERS: PCP Family Medicine; Visit Provider Internal Medicine Gastroenterology
DX: R19.7 Diarrhea, unspecified (principal)
CPT/HCPCS: 83630; 83993; 87493

== ENCOUNTER → 2022-10-03 | Outpatient (CLI) | payer OTHER, SELFPAY ==
[2022-10-03 09:35] LABS: Erythrocyte Sedimentation Rate 5 mm/hr (0-20)
[2022-10-03 10:08] LABS: CRP < 2.90 mg/L (0.0-3.0); LDH 164 U/L (87-241)
== END | disposition home or self-care (01) ==
LOC: LAB 08:30
PROVIDERS: PCP Family Medicine; Referring Provider Internal Medicine Gastroenterology; Visit Provider Internal Medicine Gastroenterology
DX: K50.90 Crohn's disease, unspecified, without complications (principal)
CPT/HCPCS: 36415; 83615; 85652; 86140

== ENCOUNTER → 2023-04-04 | Outpatient (CLI) | payer OTHER, SELFPAY ==
--- OUTSIDE RECORDS SUMMARY | 2023-04-04 16:19 | XMS RPT_ITS | CCD ---
Author Name Unknown Address [address] [place] [address] Organization [facility] Care Team Providers Care Supplier Relationship Director Name Role Phone Wayne Victoria Unavailable Sheridan Allen MD Primary Care Provider [phone] HERNÁN LA Referring Unavailable SHERIDAN ALLEN Primary Care Unavailable HERNÁN LA Attending Unavailable SHERIDAN ALLEN Primary Care Unavailable SHERIDAN ALLEN Primary Care Unavailable SHERIDAN ALLEN Referring Unavailable SHERIDAN ALLEN Primary Care Unavailable SHERIDAN ALLEN Attending Unavailable SHERIDAN ALLEN Referring Unavailable SHERIDAN ALLEN Primary Care Unavailable USHA BORRERO Referring Unavailable SHERIDAN ALLEN Primary Care Unavailable USHA BORRERO Attending Unavailable SHERIDAN ALLEN Primary Care Unavailable BEATRIZ NINA Attending Unavailable SHERIDAN ALLEN Primary Care Unavailable SHERIDAN ALLEN Primary Care Unavailable MELITON NIELSEN Referring Unavailable SHERIDAN ALLEN Primary Care Unavailable SHERIDAN ALLEN Primary Care Unavailable Allergies Allergy Classification Reported Allergen(s) Allergy Type Date of Onset Reaction(s) Facility (16 sources) Erythromycin; Translations: [ERYTHROMYCIN] Drug Allergy [address] [facility] Work Phone: (15 sources) Environmental allergies [Other] Propensity to adverse reactions [address] [facility] Work Phone: (1 source) OTHER; Translations: [OTHER] Propensity to adverse reactions (disorder) 7 [facility] Repository Medications Current Medications Medication Drug Class(es) Dates Sig (Normalized) Sig (Original) amoxicillin 875 mg / clavulanate 125 mg oral tablet (2 sources) Penicillin-class Antibacterial Start: 06-28-2022 End: 07-05-2022 take 1 tablet by mouth twice daily amoxicillin-clavulan ic acid (AUGMENTIN) 875-125 mg per tablet Indications: Sinobronchitis Take 1 tablet by mouth twice daily for 7 days. 14 tablet 0 06/28/2022 07/05/2022 Active Completed/Discontinued Medications Medication Drug Class(es) Dates Sig (Normalized) Sig (Original) [id number] 200 actuat albuterol 0.09 mg/actuat metered dose inhaler (5 sources) beta2-Adrenergic Agonist Start: 06-28-2022 take 2 puff(s) by inhalation every four hours as needed albuterol HFA (PROAIR HFA) 90 mcg/actuation inhaler Indications: Sinobronchitis Inhale 2 Puffs as instructed every 4 hours as needed. 1 Each 0 06/28/2022 Active Problems Active Problems Problem Classification Problem Date Documented Da te Episodic/Chronic Abdominal pain (1 source) Right lower quadrant pain; Translations: [Right lower quadrant pain] Episodic Anxiety disorders (20 sources) Obsessive-compulsive disorder; Translations: [Obsessive-compulsive disorder, unspecified] Onset: 4 11-09-2020 Chronic Asthma (16 sources) Mild intermittent asthma; Translations: [Mild intermittent asthma, uncomplicated] Onset: 1 11-09-2020 Chronic Disorders of lipid metabolism (17 sources) Mixed hyperlipidemia; Translations: [Mixed hyperlipidemia] Onset: 7 11-09-2020 Chronic Esophageal disorders (17 sources) Gastroesophageal reflux disease without esophagitis; Translations: [Gastro-esophageal reflux disease without esophagitis] Onset: 6 11-09-2020 Chronic Nutritional deficiencies (17 sources) Vitamin D deficiency; Translations: [Vitamin D deficiency, unspecified] Onset: 1 11-09-2020 Chronic Osteoarthritis (9 sources) Primary gonarthrosis, bilateral; Translations: [Bilateral primary osteoarthritis of knee] Onset: 3 Chronic Other ear and sense organ disorders (1 source) Otalgia, left ear; Translations: [Otalgia, unspecified] Episodic Other gastrointestinal disorders (2 sources) Heartburn; Translations: [Heartburn] Episodic Other inflammatory condition of skin (16 sources) Psoriasis; Translations: [Psoriasis, unspecified] Onset: 5 11-09-2020 Chronic Other upper respiratory disease (1 source) Seasonal allergy; Translations: [Other seasonal allergic rhinitis] Chronic Other upper respiratory infections (1 source) Chronic sinusitis; Translations: [Chronic sinusitis, unspecified] Chronic Spondylosis; intervertebral disc disorders; other back problems (15 sources) Degeneration of lumbar intervertebral disc; Translations: [Other intervertebral disc degeneration, lumbar region] Onset: 6 11-09-2020 Chronic Past or Other Problems Problem Classification Problem Date Documented Da te Episodic/Chronic Chronic obstructive pulmonary disease and bronchiectasis (2 sources) Bronchitis; Translations: [Bronchitis, not specified as acute or chronic] Onset: 07-03-2022 Episodic Other aftercare (20 sources) Patient encounter status; Translations: [Other manager terminal (current) drug therapy] Onset: 11-09-2020 11-09-2020 Episodic Other aftercare (1 source) Other manager terminal (current) drug therapy; Translations: [Medication management] Onset: 11-09-2020 Episodic Other infections; including parasitic (15 sources) History of Clostridium difficile intestinal infection; Translations: [Personal history of other infectious and parasitic diseases] Onset: 11-09-2020 11-09-2020 Episodic Other inflammatory condition of skin (15 sources) Lichen planus; Translations: [Lichen planus, unspecified] Onset: 11-18-2014 11-09-2020 Episodic Other non-traumatic joint disorders (1 source) Pain in left knee; Translations: [Acute pain of left knee] Onset: 03-24-2022 Episodic Other screening for suspected conditions (not mental disorders or infectious disease) (2 sources) Encounter for screening for diabetes mellitus; Translations: [Encounter for screening for malignant neoplasm of prostate] Onset: 05-26-2022 Episodic Residual codes; unclassified (16 sources) Chews tobacco ; Translations: [Tobacco use] Onset: 11-09-2020 11-09-2020 Episodic Screening and history of mental health and substance abuse codes (8 sources) Ex-smoker; Translations: [Personal history of nicotine dependence] Onset: 05-26-2022 05-26-2022 Episodic Spondylosis; intervertebral disc disorders; other back problems (4 sources) Low back pain; Translations: [Lumbar back pain] Onset: 03-06-2022 Episodic Results Test Name Value Interpretation Reference Range Facil ity Vital Signs Date Time Vital Sign Value Performing Clinician Phill hargrove 07-03-2022 12:02-0400 Body temperature 97.39 [degF] Hernán DAVEY-C Work Phone: [facility] 07-03-2022 12:02-0400 Body weight 82.56 kg Hernán La PA-C Work Phone: [facility] 07-03-2022 12:02-0400 Diastolic blood pressure 78 mm[Hg] Hrenán La PA-C Work Phone: [facility] 07-03-2022 12:02-0400 Heart rate 78 /min Hernán DAVEY-C Work Phone: [facility] 07-03-2022 12:02-0400 Respiratory rate 18 /min Hernán La PA-C Work Phone: [facility] 07-03-2022 12:02-0400 SaO2% (BldA) [Mass fraction] 99 % Hernán DAVEY-C Work Phone: [facility] 07-03-2022 12:02-0400 Systolic blood pressure 120 mm[Hg] Hernán La PA-C Work Phone: [facility] 06-28-2022 16:27-0400 Body temperature 98.2 [degF] Dimitry Umanzor [employer] DATA SOLUTIONS ARCHITECT.BULK PICKER Work Phone: [facility] 06-28-2022 16:27-0400 Body weight 81.65 kg Dimitry Umanzor BIG DATA SOLUTIONS ARCHITECT.BULK PICKER Work Phone: [facility] 06-28-2022 16:27-0400 Diastolic blood pressure 84 mm[Hg] Dimitry Umanzor BIG DATA SOLUTIONS ARCHITECT.BULK PICKER Work Phone: [facility] 06-28-2022 16:27-0400 Heart rate 92 /min Dimitry Umanzor BIG DATA SOLUTIONS ARCHITECT.BULK PICKER Work Phone: [facility] 06-28-2022 16:27-0400 Respiratory rate 16 /min Dimitry Umanzor [employer] DATA SOLUTIONS ARCHITECT.BULK PICKER Work Phone: [facility] 06-28-2022 16:27-0400 SaO2% (BldA) [Mass fraction] 97 % Dimitry Noé [employer] DATA SOLUTIONS ARCHITECT.BULK PICKER Work Phone: [facility] 06-28-2022 16:27-0400 Systolic blood pressure 138 mm[Hg] Dimitry [employer] DATA SOLUTIONS ARCHITECT.BULK PICKER Work Phone: [facility] 05-26-2022 14:55-0500 Body height 167.6 cm Sheridan Allen MD Work Phone: [facility] 05-26-2022 14:55-0500 Body temperature 98.1 [degF] Sheridan Allen MD Work Phone: [facility] 05-26-2022 14:55-0500 Body weight 78.93 kg Sheridan Allen MD Work Phone: [facility] 05-26-2022 14:55-0500 Diastolic blood pressure 86 mm[Hg] Sheridan Allen MD Work Phone: [facility] 05-26-2022 14:55-0500 Heart rate 82 /min Sheridan Allen MD Work Phone: [facility] 05-26-2022 14:55-0500 Respiratory rate 16 /min Sheridan Allen MD Work Phone: [facility] 05-26-2022 14:55-0500 Systolic blood pressure 136 mm[Hg] Sheridan Allen MD Work Phone: [facility] 03-21-2022 16:29-0500 Body temperature 97.81 [degF] Susan Rowan BIG DATA SOLUTIONS ARCHITECT.BULK PICKER Work Phone: [facility] 03-21-2022 16:29-0500 Body weight 82.56 kg Susan Rowan [employer] DATA SOLUTIONS ARCHITECT.BULK PICKER Work Phone: [facility] 03-21-2022 16:29-0500 Diastolic blood pressure 80 mm[Hg] Susan Rowan BIG DATA SOLUTIONS ARCHITECT.BULK PICKER Work Phone: [facility] 03-21-2022 16:29-0500 Heart rate 96 /min Susan Rowan BIG DATA SOLUTIONS ARCHITECT.BULK PICKER Work Phone: [facility] 03-21-2022 16:29-0500 Respiratory rate 16 /min Susan Rowan BIG DATA SOLUTIONS ARCHITECT.BULK PICKER Work Phone: [facility] 03-21-2022 16:29-0500 SaO2% (BldA) [Mass fraction] 98 % Susan Rowan [employer] DATA SOLUTIONS ARCHITECT.BULK PICKER Work Phone: [facility] 03-21-2022 16:29-0500 Systolic blood pressure 128 mm[Hg] Susan Rowan BIG DATA SOLUTIONS ARCHITECT.BULK PICKER Work Phone: [facility] 03-06-2022 16:14-0500 Body temperature 97.2 [degF] Meliton Athy PA-C Work Phone: [facility] 03-06-2022 16:14-0500 Body weight 83.19 kg Meliton Athy PA-C Work Phone: [facility] 03-06-2022 16:14-0500 Diastolic blood pressure 84 mm[Hg] Meliton Athy PA-C Work Phone: [facility] 03-06-2022 16:14-0500 Heart rate 80 /min Meliton Athy PA-C Work Phone: [facility] 03-06-2022 16:14-0500 Respiratory rate 21 /min Meliton Athy PA-C Work Phone: [facility] 03-06-2022 16:14-0500 SaO2% (BldA) [Mass fraction] 98 % Meliton Athy PA-C Work Phone: [facility] 03-06-2022 16:14-0500 Systolic blood pressure 138 mm[Hg] Meliton Athy PA-C Work Phone: [facility] 11-12-2021 12:03-0400 Body temperature 97.9 [degF] Sheridan Allen MD Work Phone: [facility] 11-12-2021 12:03-0400 Body weight 77.11 kg Sheridan Allen MD Work Phone: [facility] 11-12-2021 12:03-0400 Diastolic blood pressure 76 mm[Hg] Sheridan Allen MD Work Phone: [facility] 11-12-2021 12:03-0400 Heart rate 64 /min Sheridan Allen MD Work Phone: [facility] 11-12-2021 12:03-0400 Respiratory rate 16 /min Sheridan Allen MD Work Phone: [facility] 11-12-2021 12:03-0400 Systolic blood pressure 102 mm[Hg] Sheridan Allen MD Work Phone: [facility] 07-12-2021 09:31-0400 Body weight 79.11 kg Beatriz Podlogar [employer] DATA SOLUTIONS ARCHITECT.BULK PICKER Work Phone: [facility] 07-12-2021 09:31-0400 Diastolic blood pressure 82 mm[Hg] Beatriz Podlogar BIG DATA SOLUTIONS ARCHITECT.BULK PICKER Work Phone: [facility] 07-12-2021 09:31-0400 Heart rate 70 /min Beatriz Podlogar BIG DATA SOLUTIONS ARCHITECT.BULK PICKER Work Phone: [facility] 07-12-2021 09:31-0400 Respiratory rate 18 /min Beatriz Podlogar BIG DATA SOLUTIONS ARCHITECT.BULK PICKER Work Phone: [facility] 07-12-2021 09:31-0400 SaO2% (BldA) [Mass fraction] 99 % Beatriz Podlogar BIG DATA SOLUTIONS ARCHITECT.BULK PICKER Work Phone: [facility] 07-12-2021 09:31-0400 Systolic blood pressure 136 mm[Hg] Beatriz Podlogar BIG DATA SOLUTIONS ARCHITECT.BULK PICKER Work Phone: [facility] 06-27-2021 09:30-0400 Body weight 77.11 kg Tisha Hernandez BIG DATA SOLUTIONS ARCHITECT.BULK PICKER Work Phone: [facility] 06-27-2021 09:30-0400 Diastolic blood pressure 80 mm[Hg] Tisha Hernandez BIG DATA SOLUTIONS ARCHITECT.BULK PICKER Work Phone: [facility] 06-27-2021 09:30-0400 Heart rate 86 /min Tisha Hernandez BIG DATA SOLUTIONS ARCHITECT.BULK PICKER Work Phone: [facility] 06-27-2021 09:30-0400 Respiratory rate 16 /min Tisha Hernandez [employer] DATA SOLUTIONS ARCHITECT.BULK PICKER Work Phone: [facility] 06-27-2021 09:30-0400 SaO2% (BldA) [Mass fraction] 97 % Tisha Hernandez BIG DATA SOLUTIONS ARCHITECT.BULK PICKER Work Phone: [facility] 06-27-2021 09:30-0400 Systolic blood pressure 122 mm[Hg] Tisha Hernandez BIG DATA SOLUTIONS ARCHITECT.BULK PICKER Work Phone: [facility] Encounters Encounter Date Encounter Type Care Provider Facility Start: 12-21-2022 End: 12-21-2022 [facility] Honorio [facility] Facility:[facility] Start: 12-21-2022 Telephone encounter Susan delgado BIG DATA SOLUTIONS ARCHITECT.BULK PICKER Work Phone: [facility] Procedures Date Procedure Procedure Detail Performing Clinician Start: 05-26-2022 Lipid 1996 panel - S leon or Plasma Susan Rowan [employer] DATA SOLUTIONS ARCHITECT.RAJIV Work Phone: Start: 03-21-2022 Urnls dip stick/tabl et rgnt auto w/o microscopy Susan Rowan [employer] DATA SOLUTIONS ARCHITECT.RAJIV Work Phone: Start: 04-10-2019 Whit ashraf [employer] ARCHITECT.BULK PICKER Work Phone: Plan of Treatment Date Care Activity Detail Author Start: 08-19-2031 PNEUMOCOCCAL (3 - PP SV23 if available, else PCV20) PNEUMOCOCCAL (3 - PPSV23 if available, else PCV20) [facility] Start: 08-19-2031 PNEUMOCOCCAL (3 - PP SV23 or PCV20) PNEUMOCOCCAL (3 - PPSV23 or PCV20) [facility] Start: 08-19-2031 Pneumococcal vaccination Pneum ococcal Vaccine (3 - PPSV23 or PCV20) [facility] Start: 11-09-[address] [facility] Start: 04-10-[address] [facility] Start: 04-10-2029 COLORECTAL CANCER SCREENING COLORECTAL CANCER SCREENING [facility] Start: 05-27-2027 Lipid 1996 panel - S leon or Plasma Lipid Screening [facility] Start: 05-27-2027 LIPID SCREEN LIPID SCREEN [facility] Start: 05-27-2027 PROSTATE CANCER SCRE ENING DISCUSSION PROSTATE CANCER SCREENING DISCUSSION [facility] Start: 11-09-2025 L[address] S[address]EN L[address]ID SCREEN [facility] Start: 05-26-2025 DIABETES SCREEN DIABETES SCREEN [facility] Start: 05-26-2025 Diabetes Screening Diabetes Screenin g [facility] Start: 11-10-2023 DIABETES SCREEN DIABETES SCREEN [facility] Start: 07-04-2023 ANNUAL PCP TEAM CASH SURRENDER CALCULATOR USMAN DISEASE VISIT ANNUAL PCP TEAM CHRONIC DISEASE VISIT [facility] Start: 05-27-2023 ANNUAL PCP TEAM CASH SURRENDER CALCULATOR USMAN DISEASE VISIT ANNUAL PCP TEAM CHRONIC DISEASE VISIT [facility] Start: 05-27-2023 COVID-19 VACCINE (3 - Booster for Pfizer series) COVID-19 VACCINE (3 - Booster for Pfizer series) [facility] Immunizations Immunization Date Immunization Notes Care Provider Fa hayleety 11-09-2020 tetanus toxoid, redu mega diphtheria toxoid, and acellular pertussis vaccine, adsorbed Tisha Tannhof [employer] ARCHITECT.BULK PICKER Work Phone: [facility] 01-24-2020 influenza, injectabl e, quadrivalent, contains preservative Tisha Tannhof BIG DATA SOLUTIONS ARCHITECT.BULK PICKER Work Phone: [facility] 01-24-2020 influenza virus vacc ine, unspecified formulation Susan Rowan BIG DATA SOLUTIONS ARCHITECT.BULK PICKER Work Phone: [facility] 10-09-2018 pneumococcal conjuga te vaccine, 13 valent Sheridan Allen MD Work Phone: [facility] 01-25-2018 influenza, injectabl e, quadrivalent, contains preservative Tisha Tannhof BIG DATA SOLUTIONS ARCHITECT.BULK PICKER Work Phone: [facility] Work Phone: 10-25-2017 pneumococcal polysaccharide vaccine, 23 valent Tisha Tannhof BIG DATA SOLUTIONS ARCHITECT.BULK PICKER Work Phone: [facility] 01-01-2017 influenza, injectabl e, quadrivalent, contains preservative Tisha Tannhof BIG DATA SOLUTIONS ARCHITECT.[facility] Work Phone: [facility] 02-18-2016 influenza, injectabl e, quadrivalent, contains preservative Tisha Tannhof BIG DATA SOLUTIONS ARCHITECT.BULK PICKER Work Phone: [facility] 01-19-2015 influenza, injectabl e, quadrivalent, contains preservative Tisha Tannhof BIG DATA SOLUTIONS ARCHITECT.BULK PICKER Work Phone: [facility] 03-26-2013 influenza virus vacc ine, unspecified formulation Tisha Tannhof BIG DATA SOLUTIONS ARCHITECT.BULK PICKER Work Phone: [facility] 02-13-2012 influenza virus vacc ine, unspecified formulation Tisha Tannhof BIG DATA SOLUTIONS ARCHITECT.BULK PICKER Work Phone: [facility] 03-10-2009 novel influenza-H1N1 -09, preservative-free, injectable Tisha Tannhof [employer] DATA SOLUTIONS ARCHITECT.BULK PICKER Work Phone: [facility] 12-28-2008 influenza virus vacc ine, unspecified formulation Tisha Tannhof BIG DATA SOLUTIONS ARCHITECT.BULK PICKER Work Phone: [facility] 10-14-2007 tetanus toxoid, redu mega diphtheria toxoid, and acellular pertussis vaccine, adsorbed Tisha Tannhof BIG DATA SOLUTIONS ARCHITECT.[facility] Work Phone: [facility] Work Phone: Payers Date Payer Category Payer Private Health Insurance [facility] CHOICE PLUS [id number] 2019-Present [phone] [place] [id number] [facility] [id number] 2019 Private Health Insurance [facility] CHOICE PLUS [id number] 2019-Present [phone] [place] [id number] [facility] [id number] 2019 Unknown [id number] Social History Date Type Detail Facility Start: 02-18-2016 End: 11-12-2021 Tobacco smoking status NHIS Ex-smoker [facility] End: 01-19-2016 History of tobacco use Current smoker [facility] End: 01-19-2016 History of tobacco use Cigarette Smoker [facility] Start: 02-18-2016 End: 12-11-2022 Cigarettes smoked current (pack per day) - Reported 0.3 [facility] Work Phone: Start: 02-18-2016 End: 11-12-2021 Tobacco use and exposure User of smokeless tobacco [facility] History of tobacco use Chews Tobacco [facility] Start: 06-27-2021 End: 12-21-2022 Alcohol intake Current drinker of alcohol (finding) [facility] Start: 04-10-2019 History SDOH Alcohol Comment socially [facility] Start: 1965 Sex Assigned At Male C [facility] Start: 06-17-2021 End: 07-12-2021 Exposure to SARS-CoV-2 (event) Not sure [facility] Work Phone: Start: 11-02-2021 End: 11-12-2021 Exposure to SARS-CoV-2 (event) Yes [facility] Start: 07-03-2022 End: 12-11-[address] [facility] Work Phone: Adult Depression Screening Assessment 0 [facility] Work Phone: Start: 04-04-2019 Gender identity Identifies as male gender (finding) [facility] Clinical Notes 10-24-2017 to 12-21-2022 Telephone Encounter - Susan Rowan APRN.CNP - 12/21/2022 4:19 PM EDTTelephone Encounter - Alka Alegria RN - 12/21/2022 3:59 PM Oxana Luis LPN - 10/04/2022 8:42 AM EDTPatient Instructions Note Date & Type Note Facility 12-21-2022 Note HNO ID: [id number] Author: Susan Rowan APRN.CNP Service: ? Author Type: Nurse Practitioner Type: Progress Notes Filed: 12/21/2022 4:08 PM Note Text: This note was created using NoteWriter. Subjective Usha Alvarez is a 57 year old male. 57 year old male with PMH GERD, hyperlipidemia, asthma presents for back pain. Acute onset a few days ago Mid lower back Tight Sharp Standing up straight he is okay. Bending or reaching down makes it worse. Has used heating pad. 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 Denies sx, IV drug, saddle anesthesia. States he has had history of back pain in past. The history is provided by the patient. No senior business development manager was used. Back Pain This is a new problem. The current episode started more than 2 days ago. The problem occurs constantly. The problem has not changed since onset.The pain is associated with no known injury. The pain is present in the lumbar spine. The quality of the pain is described as cramping. The pain does not radiate. The pain is at a severity of 6/10. The pain is moderate. The symptoms are aggravated by bending, twisting and certain positions. The pain is The same all the time. Stiffness is present All day. Pertinent negatives include no chest pain, no fever, no numbness, no weight loss, no headaches, no abdominal pain, no abdominal swelling, no bowel incontinence, no perianal numbness, no bladder incontinence, no dysuria, no pelvic pain, no leg pain, no paresthesias, no paresis, no tingling and no weakness. He has tried heat and ice for the symptoms. The treatment provided no relief. PAST MEDICAL HISTORY Diagnosis Date Asthma 06/13/2010 Chews tobacco 11/09/2020 Started age 15, does a can every 3-4 days Daytime hypersomnolence 01/09/2013 Depression 12/09/2010 Diverticulosis 12/2018 Enterocolitis due to Clostridium difficile 05/19/2015 Ex-smoker 05/26/2022 Started in his 20's till his 40's and smoked 1 pack every other week TOÑO (generalized anxiety disorder) 08/16/2018 GERD without esophagitis 03/22/2005 History of Clostridium difficile colitis 11/09/2020 Irritable bowel syndrome Lichen planus 11/18/2014 Lumbar degenerative disc disease 05/13/2015 Mild intermittent asthma without complication 06/13/2010 Mixed hyperlipidemia 08/22/2016 OCD (obsessive compulsive disorder) 04/08/2013 Other specified intestinal malabsorption Psoriasis 01/18/2015 Radiculopathy, lumbar region 05/13/2015 Vitamin D deficiency 10/25/2010 Well adult exam 05/26/2022 Last done: 05/26/2022 PAST SURGICAL HISTORY Procedure Laterality Date COLONOSCOPY 11/18/[address] Anthony COLONOSCOPY FLX DX W/COLLJ SPEC WHEN PFRMD 02/18/2019 Colonoscopy COLONOSCOPY FLX DX W/COLLJ SPEC WHEN PFRMD 04/10/2019 Colonoscopy EGD 11/18/13 gastritis and duodenitis TONSILLECTOMY HX 1970 ALLERGIES Environmental Allergies [Other] and Erythromycin MEDICATIONS predniSONE (DELTASONE) 10 mg tablet Take 4 tabs daily for 3 days, then 2 tabs daily for 3 days, then 1 tab daily for 3 days with food. cyclobenzaprine (FLEXERIL) 10 mg tablet Take 1 tablet by mouth three times a day as needed for muscle spasm. omeprazole (PRILOSEC) 20 mg capsule TAKE 1 CAPSULE BY MOUTH 1/2 HOUR BEFORE BREAKFAST albuterol HFA (PROAIR HFA) 90 mcg/actuation inhaler Inhale 2 Puffs as instructed every 4 hours as needed. fluticasone (FLONASE) 50 mcg/actuation nasal spray Use 2 Sprays in each nostril once daily. Rinse mouth after use. cholecalciferol, Vitamin D3, (VITAMIN D3) 1,250 mcg (50,000 unit) cap capsule Take 1 capsule by mouth one time a week. betamethasone dipropionate (DIPROSONE) 0.05 % cream APPLY TO AFFECTED AREA(S) TOPICALLY TWICE DAILY dicyclomine (BENTYL) 20 mg tablet Take 1 tablet by mouth four times daily as needed. balsalazide disodium (BALSALAZIDE ORAL) Take by mouth. aluminum chloride (DRYSOL) 20 % external solution Apply to affected area daily at bedtime. FAMILY HISTORY Problem Relation Age of Onset Allergies Mother unknown, took allergy injections Heart Mother murmur Hypertension Mother Allergies Sister cats Heart Maternal Grandmother heart murmur- from Social History Tobacco Use Smoking status: Former Packs/day: 0.30 Years: 15.00 Additional pack years: 0.00 Total pack years: 4.50 Types: Cigarettes Quit date: 01/19/2016 Years since quittin.9 Smokeless tobacco: Current Types: Chew Substance Use Topics Alcohol use: Yes Comment: socially Drug use: No Review of Systems Constitutional: Negative for activity change, appetite change, chills, fever and weight loss. Eyes: Negative for pain, discharge and itching. Cardiovascular: Negative for chest pain. Gastrointestinal: Negative for abdominal pain, bowel incontinence, diarrhea, nausea and vomiting. Genitourinary: Negative for bladder incontinence, dysuria and pelvic pain. Musculoskeletal: Positive (more content not included)... [facility] 12-21-2022 Miscellaneous Notes RX called in. Patient calls and states that medication should have been sent to [facility] pharmacy. Asking if provider can send it there? Please review and advise, Alka Alegria RN documented in this encounter [facility] 10-04-2022 Note HNO ID: [id number] Author: Oxana Zuniga LPN Service: ? Author Type: ? Type: Progress Notes Filed: 10/04/2022 8:42 AM Note Text: Scan on 10/03/2022 10:37 AM by Esha Chaudhry PA-C: Miscellaneous Lab Scan on 10/03/2022 9:45 AM by Esha Chaudhry PA-C: Miscellaneous Lab [facility] 10-04-2022 History of Presen t illness Narrative Scan on 10/03/2022 10:37 AM by Esha Chaudhry PA-C: Miscellaneous Lab Scan on 10/03/2022 9:45 AM by Esha Chaudhry PA-C: Miscellaneous Lab documented in this encounter [facility] 09-04-2022 Miscellaneous Notes The following approved medication requests have been transmitted electronically. Requested Prescriptions Signed Prescriptions Disp Refills omeprazole (PRILOSEC) 20 mg capsule 90 capsule 1 Sig: TAKE 1 CAPSULE BY MOUTH 1/2 HOUR BEFORE BREAKFAST Authorizing Provider: SHERIDAN ALLEN Refused Prescriptions Disp Refills omeprazole (PRILOSEC) 20 mg capsule [Pharmacy Med Name: Omeprazole 20 MG Oral Capsule Delayed Release] 90 capsule 3 Sig: TAKE 1 CAPSULE BY MOUTH 1/2 HOUR BEFORE BREAKFAST Refused By: TOM LANGFORD Reason for Refusal: A Refill not appropriate Sheridan Allen MD documented in this encounter [facility] 07-03-2022 Note HNO ID: [id number] Author: RT Chelsey(R) Service: Nuclear Medicine Author Type: Technologist Type: Progress Notes Filed: 07/03/2022 12:35 PM Note Text: Radiology Service Progress Note PATIENT NAME: Usha Alvarez DATE OF SERVICE: July 03, 2022 TIME: 12:30 PM PATIENT IDENTITY VERIFICATION COMPLETED USING TWO (2) IDENTIFIERS: Name and Date of confirmed by patient verbally. FALL SCREENING: Has the patient had 2 falls in the last year or 1 fall with injury or currently using an Ambulatory Assistive Device (Walker, Cane, Wheelchair, Crutches, etc.)? No PATIENT GENDER DATA: Male PATIENT RELEVANT IMPLANT DATA REVIEWED: Not Applicable RADIOLOGY DEPARTMENT: General X-ray: Exam(s) Completed: Chest X-Ray PERIPHERAL IV DATA: Not applicable SIGNED BY: RT Chelsey(R) July 03, 2022 12:30 PM [facility] 07-03-2022 Note HNO ID: [id number] Author: Hernán La PA-C Service: ? Author Type: Physician Manufacturing Job Titles Type: Progress Notes Filed: 07/03/2022 12:42 PM Note Text: Chief Complaint Patient presents with: Recheck: Was seen in Urgent Care for sinobronchitis HPI Usha Alvarez is a 56 year old male who presents here today for Above Complaints.. Patient was seen on 06/28 for URI symptoms and dx with sinobronchitis. Was put on augmentin, prednisone, inhaler and flonase. Patient has noted some improvement however the cough is still present and is keeping him up. Cough can be productive but sometimes feels stuck. No fevers Past medical history, appointments, medications, allergies reviewed. Previous Medical History PAST MEDICAL HISTORY Diagnosis Date Asthma 06/13/2010 Chews tobacco 11/09/2020 Started age 15, does a can every 3-4 days Daytime hypersomnolence 01/09/2013 Depression 12/09/2010 Diverticulosis 12/2018 Enterocolitis due to Clostridium difficile 05/19/2015 Ex-smoker 05/26/2022 Started in his 20's till his 40's and smoked 1 pack every other week TOÑO (generalized anxiety disorder) 08/16/2018 GERD without esophagitis 03/22/2005 History of Clostridium difficile colitis 11/09/2020 Irritable bowel syndrome Lichen planus 11/18/2014 Lumbar degenerative disc disease 05/13/2015 Mild intermittent asthma without complication 06/13/2010 Mixed hyperlipidemia 08/22/2016 OCD (obsessive compulsive disorder) 04/08/2013 Other specified intestinal malabsorption Psoriasis 01/18/2015 Radiculopathy, lumbar region 05/13/2015 Vitamin D deficiency 10/25/2010 Well adult exam 05/26/2022 Last done: 05/26/2022 Previous Surgical History PAST SURGICAL HISTORY Procedure Laterality Date COLONOSCOPY 11/18/[address] Anthony COLONOSCOPY FLX DX W/COLLJ SPEC WHEN PFRMD 02/18/2019 Colonoscopy COLONOSCOPY FLX DX W/COLLJ SPEC WHEN PFRMD 04/10/2019 Colonoscopy EGD 11/18/13 gastritis and duodenitis TONSILLECTOMY HX 1970 Family History FAMILY HISTORY Problem Relation Age of Onset Allergies Mother unknown, took allergy injections Heart Mother murmur Hypertension Mother Allergies Sister cats Heart Maternal Grandmother heart murmur- from Patient Allergies ALLERGIES Allergen Reactions Environmental Aller* Unknown Cockroach, weeds, trees, grass, ragweed Erythromycin GI Upset GI upset Current Medications Current Outpatient Medications on File Prior to Visit Medication Sig predniSONE (DELTASONE) 20 mg tablet Take 2 tablets by mouth once daily for 5 days. amoxicillin-clavulanic acid (AUGMENTIN) 875-125 mg per tablet Take 1 tablet by mouth twice daily for 7 days. albuterol HFA (PROAIR HFA) 90 mcg/actuation inhaler Inhale 2 Puffs as instructed every 4 hours as needed. fluticasone (FLONASE) 50 mcg/actuation nasal spray Use 2 Sprays in each nostril once daily. Rinse mouth after use. cholecalciferol, Vitamin D3, (VITAMIN D3) 1,250 mcg (50,000 unit) cap capsule Take 1 capsule by mouth one time a week. betamethasone dipropionate (DIPROSONE) 0.05 % cream APPLY TO AFFECTED AREA(S) TOPICALLY TWICE DAILY omeprazole (PRILOSEC) 20 mg capsule TAKE 1 CAPSULE BY MOUTH 1/2 HOUR BEFORE BREAKFAST dicyclomine (BENTYL) 20 mg tablet Take 1 tablet by mouth four times daily as needed. balsalazide disodium (BALSALAZIDE ORAL) Take by mouth. aluminum chloride (DRYSOL) 20 % external solution Apply to affected area daily at bedtime. No current facility-administered medications on file prior to visit. Social History Social History Tobacco Use Smoking status: Former Packs/day: 0.30 Years: 15.00 Pack years: 4.50 Types: Cigarettes Quit date: 01/19/2016 Years since quittin.4 Smokeless tobacco: Current Types: Chew Substance Use Topics Alcohol use: Yes Comment: socially Drug use: No Review of Symptoms REVIEW OF SYSTEMS See HPI EXAM: BP 120/78 (BP Site: Right Arm, BP Position: Sitting, BP Cuff Size: Large Adult) Pulse 78 Temp 36.3 ?C (97.4 ?F) Resp 18 Wt 82.6 kg (182 lb) SpO2 99% BMI 29.38 kg/m? General Appearance: Well appearing, alert, in no acute distress, well-hydrated, well nourished.. Lungs: scattered wheezes. Mostly cleared with cough. Still noted in R mid lung jiang.. Heart: RRR without murmur, gallop, or rubs. No ectopy. Health Maintenance List SHINGRIX VACCINE(1 of 2) due on 05/27/2023 COVID-19 VACCINE(3 - Booster for Pfizer series) due on 05/27/2023 INFLUENZA(Season Ended) due on 11/17/2022 ANNUAL PCP TEAM CHRONIC DISEASE VISIT due on 05/27/2023 DIABETES SCREEN due on 05/26/2025 LIPID SCREEN due on 05/27/2027 PROSTATE CANCER SCREENING DISCUSSION due on 05/27/2027 COLORECTAL CANCER SCREENING due on 04/10/2029 DTAP,TDAP,TD(3 - Td or Tdap) due on 11/09/2030 PNEUMOCOCCAL(3 - PPSV23 if available, else PCV20) due on 08/19/2031 DEPRESSION ASSESSMENT Completed HEPATITIS B Discontinued SPIROMETRY Di (more content not included)... [facility] 07-03-2022 History of Presen t illness Narrative Chief Complaint Patient presents with: Recheck: Was seen in Urgent Care for sinobronchitis HPI Usha Alvarez is a 56 year old male who presents here today for Above Complaints.. Patient was seen on 06/28 for URI symptoms and dx with sinobronchitis. Was put on augmentin, prednisone, inhaler and flonase. Patient has noted some improvement however the cough is still present and is keeping him up. Cough can be productive but sometimes feels stuck. No fevers Past medical history, appointments, medications, allergies reviewed. Previous Medical History PAST MEDICAL HISTORY Diagnosis Date Asthma 06/13/2010 Chews tobacco 11/09/2020 Started age 15, does a can every 3-4 days Daytime hypersomnolence 01/09/2013 Depression 12/09/2010 Diverticulosis 12/2018 Enterocolitis due to Clostridium difficile 05/19/2015 Ex-smoker 05/26/2022 Started in his 20's till his 40's and smoked 1 pack every other week TOÑO (generalized anxiety disorder) 08/16/2018 GERD without esophagitis 03/22/2005 History of Clostridium difficile colitis 11/09/2020 Irritable bowel syndrome Lichen planus 11/18/2014 Lumbar degenerative disc disease 05/13/2015 Mild intermittent asthma without complication 06/13/2010 Mixed hyperlipidemia 08/22/2016 OCD (obsessive compulsive disorder) 04/08/2013 Other specified intestinal malabsorption Psoriasis 01/18/2015 Radiculopathy, lumbar region 05/13/2015 Vitamin D deficiency 10/25/2010 Well adult exam 05/26/2022 Last done: 05/26/2022 Previous Surgical History PAST SURGICAL HISTORY Procedure Laterality Date COLONOSCOPY 11/18/[address] Anthony COLONOSCOPY FLX DX W/COLLJ SPEC WHEN PFRMD 02/18/2019 Colonoscopy COLONOSCOPY FLX DX W/COLLJ SPEC WHEN PFRMD 04/10/2019 Colonoscopy EGD 11/18/13 gastritis and duodenitis TONSILLECTOMY HX 1970 Family History FAMILY HISTORY Problem Relation Age of Onset Allergies Mother unknown, took allergy injections Heart Mother murmur Hypertension Mother Allergies Sister cats Heart Maternal Grandmother heart murmur- from Patient Allergies ALLERGIES Allergen Reactions Environmental Aller* Unknown Cockroach, weeds, trees, grass, ragweed Erythromycin GI Upset GI upset Current Medications Current Outpatient Medications on File Prior to Visit Medication Sig predniSONE (DELTASONE) 20 mg tablet Take 2 tablets by mouth once daily for 5 days. amoxicillin-clavulanic acid (AUGMENTIN) 875-125 mg per tablet Take 1 tablet by mouth twice daily for 7 days. albuterol HFA (PROAIR HFA) 90 mcg/actuation inhaler Inhale 2 Puffs as instructed every 4 hours as needed. fluticasone (FLONASE) 50 mcg/actuation nasal spray Use 2 Sprays in each nostril once daily. Rinse mouth after use. cholecalciferol, Vitamin D3, (VITAMIN D3) 1,250 mcg (50,000 unit) cap capsule Take 1 capsule by mouth one time a week. betamethasone dipropionate (DIPROSONE) 0.05 % cream APPLY TO AFFECTED AREA(S) TOPICALLY TWICE DAILY omeprazole (PRILOSEC) 20 mg capsule TAKE 1 CAPSULE BY MOUTH 1/2 HOUR BEFORE BREAKFAST dicyclomine (BENTYL) 20 mg tablet Take 1 tablet by mouth four times daily as needed. balsalazide disodium (BALSALAZIDE ORAL) Take by mouth. aluminum chloride (DRYSOL) 20 % external solution Apply to affected area daily at bedtime. No current facility-administered medications on file prior to visit. Social History Social History Tobacco Use Smoking status: Former Packs/day: 0.30 Years: 15.00 Pack years: 4.50 Types: Cigarettes Quit date: 01/19/2016 Years since quittin.4 Smokeless tobacco: Current Types: Chew Substance Use Topics Alcohol use: Yes Comment: socially Drug use: No Review of Symptoms REVIEW OF SYSTEMS See HPI EXAM: BP 120/78 (BP Site: Right Arm, BP Position: Sitting, BP Cuff Size: Large Adult) Pulse 78 Temp 36.3 C (97.4 F) Resp 18 Wt 82.6 kg (182 lb) SpO2 99% BMI 29.38 kg/m General Appearance: Well appearing, alert, in no acute distress, well-hydrated, well nourished.. Lungs: scattered wheezes. Mostly cleared with cough. Still noted in R mid lung jiang.. Heart: RRR without murmur, gallop, or rubs. No ectopy. Health Maintenance List SHINGRIX VACCINE(1 of 2) due on 05/27/2023 COVID-19 VACCINE(3 - Booster for Pfizer series) due on 05/27/2023 INFLUENZA(Season Ended) due on 11/17/2022 ANNUAL PCP TEAM CHRONIC DISEASE VISIT due on 05/27/2023 DIABETES SCREEN due on 05/26/2025 LIPID SCREEN due on 05/27/2027 PROSTATE CANCER SCREENING DISCUSSION due on 05/27/2027 COLORECTAL CANCER SCREENING due on 04/10/2029 DTAP,TDAP,TD(3 - Td or Tdap) due on 11/09/2030 PNEUMOCOCCAL(3 - PPSV23 if available, else PCV20) due on 08/19/2031 DEPRESSION ASSESSMENT Completed HEPATITIS B Discontinued SPIROMETRY Discontinued HEPATITIS C SCREENING Discontinued HIV SCREENING Discontinued Data reviewed ASSESSMENT/PLAN: 1. Bronchitis - ICD9: 490, ICD10: J40 Check CXR. Finish current atb. Continue mucinex. Codeine cough syrup prn. Follow up as needed. Discussed possible red flags and when to seek medical attention. - XR CHEST 2V FRONTAL/LAT - CODEINE 10 MG-GUAIFENESIN 100 MG/5 ML ORAL LIQUID Hernán La PA-C documented in this encounter [facility] 06-28-2022 Note HNO ID: [id number] Author: Dimitry Umanzor APRN.BULK PICKER Service: ? Author Type: Nurse Practitioner Type: Progress Notes Filed: 06/28/2022 5:32 PM Note Text: Subjective HPI HPI Usha Alvarez is a 56 year old male who presents today for CC of cough, congestion. This started 1 week ago/worsening. Has tried otc medication for relief. Symptoms are worsened by nothing. Risk factors hx of bad allergies, remote smoker. .Patient presents with: Head Congestion: chest congestion, cough and restless x 1 week PAST MEDICAL HISTORY Diagnosis Date Asthma 06/13/2010 Chews tobacco 11/09/2020 Started age 15, does a can every 3-4 days Daytime hypersomnolence 01/09/2013 Depression 12/09/2010 Diverticulosis 12/2018 Enterocolitis due to Clostridium difficile 05/19/2015 Ex-smoker 05/26/2022 Started in his 20's till his 40's and smoked 1 pack every other week TOÑO (generalized anxiety disorder) 08/16/2018 GERD without esophagitis 03/22/2005 History of Clostridium difficile colitis 11/09/2020 Irritable bowel syndrome Lichen planus 11/18/2014 Lumbar degenerative disc disease 05/13/2015 Mild intermittent asthma without complication 06/13/2010 Mixed hyperlipidemia 08/22/2016 OCD (obsessive compulsive disorder) 04/08/2013 Other specified intestinal malabsorption Psoriasis 01/18/2015 Radiculopathy, lumbar region 05/13/2015 Vitamin D deficiency 10/25/2010 Well adult exam 05/26/2022 Last done: 05/26/2022 PAST SURGICAL HISTORY Procedure Laterality Date COLONOSCOPY 11/18/[address] Anthony COLONOSCOPY FLX DX W/COLLJ SPEC WHEN PFRMD 02/18/2019 Colonoscopy COLONOSCOPY FLX DX W/COLLJ SPEC WHEN PFRMD 04/10/2019 Colonoscopy EGD 11/18/13 gastritis and duodenitis TONSILLECTOMY HX 1970 ALLERGIES Environmental Allergies [Other] and Erythromycin MEDICATIONS cholecalciferol, Vitamin D3, (VITAMIN D3) 1,250 mcg (50,000 unit) cap capsule Take 1 capsule by mouth one time a week. betamethasone dipropionate (DIPROSONE) 0.05 % cream APPLY TO AFFECTED AREA(S) TOPICALLY TWICE DAILY omeprazole (PRILOSEC) 20 mg capsule TAKE 1 CAPSULE BY MOUTH 1/2 HOUR BEFORE BREAKFAST dicyclomine (BENTYL) 20 mg tablet Take 1 tablet by mouth four times daily as needed. balsalazide disodium (BALSALAZIDE ORAL) Take by mouth. aluminum chloride (DRYSOL) 20 % external solution Apply to affected area daily at bedtime. predniSONE (DELTASONE) 20 mg tablet Take 2 tablets by mouth once daily for 5 days. amoxicillin-clavulanic acid (AUGMENTIN) 875-125 mg per tablet Take 1 tablet by mouth twice daily for 7 days. albuterol HFA (PROAIR HFA) 90 mcg/actuation inhaler Inhale 2 Puffs as instructed every 4 hours as needed. fluticasone (FLONASE) 50 mcg/actuation nasal spray Use 2 Sprays in each nostril once daily. Rinse mouth after use. FAMILY HISTORY Problem Relation Age of Onset Allergies Mother unknown, took allergy injections Heart Mother murmur Hypertension Mother Allergies Sister cats Heart Maternal Grandmother heart murmur- from Social History Tobacco Use Smoking status: Former Packs/day: 0.30 Years: 15.00 Pack years: 4.50 Types: Cigarettes Quit date: 01/19/2016 Years since quittin.4 Smokeless tobacco: Current Types: Chew Substance Use Topics Alcohol use: Yes Comment: socially Drug use: No Review of Systems Constitutional: Negative for fever. HENT: Positive for congestion and sinus pain. Negative for ear pain, nosebleeds and sore throat. Respiratory: Positive for cough. Negative for shortness of breath and wheezing. Cardiovascular: Negative for chest pain. Musculoskeletal: Negative for neck pain. Skin: Negative for itching and rash. Objective Blood pressure 138/84, pulse 92, temperature 36.8 ?C (98.2 ?F), resp. rate 16, weight 81.6 kg (180 lb), SpO2 97 %. Physical Exam Constitutional: General: He is not in acute distress. Appearance: He is not toxic-appearing or diaphoretic. HENT: Head: Normocephalic and atraumatic. Cardiovascular: Rate and Rhythm: Normal rate and regular rhythm. Heart sounds: Normal heart sounds, S1 normal and S2 normal. Pulmonary: Effort: Pulmonary effort is normal. Breath sounds: Normal breath sounds. Lymphadenopathy: Cervical: No cervical adenopathy. Right cervical: No superficial cervical adenopathy. Left cervical: No superficial cervical adenopathy. Neurological: Mental Status: He is alert and oriented to person, place, and time. Gait: Gait is intact. ASSESSMENT/PLAN: 1. Sinobronchitis - ICD9: 473.9, 490, ICD10: J32.9, J40 Start prednisone today, if s/s do not improve in next 3 days fill/take atb rx. - Supportive care with plenty of fluids, rest, and analgesia prn. - Follow up in 3-5 days if symptoms persist or worsen. - PREDNISONE 20 MG TABLET - AMOXICILLIN 875 MG-POTASSIUM CLAVULANATE 125 MG TABLET - ALBUTEROL SULFATE HFA 90 MCG/ACTUATION AEROSOL INHALER - FLUTICASONE PROPIONATE 50 MCG/AC (more content not included)... [facility] History of Presen t illness Narrative Subjective HPI HPI Usha Alvarez is a 56 year old male who presents today for CC of cough, congestion. This started 1 week ago/worsening. Has tried otc medication for relief. Symptoms are worsened by nothing. Risk factors hx of bad allergies, remote smoker. .Patient presents with: Head Congestion: chest congestion, cough and restless x 1 week PAST MEDICAL HISTORY Diagnosis Date Asthma 06/13/2010 Chews tobacco 11/09/2020 Started age 15, does a can every 3-4 days Daytime hypersomnolence 01/09/2013 Depression 12/09/2010 Diverticulosis 12/2018 Enterocolitis due to Clostridium difficile 05/19/2015 Ex-smoker 05/26/2022 Started in his 20's till his 40's and smoked 1 pack every other week TOÑO (generalized anxiety disorder) 08/16/2018 GERD without esophagitis 03/22/2005 History of Clostridium difficile colitis 11/09/2020 Irritable bowel syndrome Lichen planus 11/18/2014 Lumbar degenerative disc disease 05/13/2015 Mild intermittent asthma without complication 06/13/2010 Mixed hyperlipidemia 08/22/2016 OCD (obsessive compulsive disorder) 04/08/2013 Other specified intestinal malabsorption Psoriasis 01/18/2015 Radiculopathy, lumbar region 05/13/2015 Vitamin D deficiency 10/25/2010 Well adult exam 05/26/2022 Last done: 05/26/2022 PAST SURGICAL HISTORY Procedure Laterality Date COLONOSCOPY 11/18/[address] Anthony COLONOSCOPY FLX DX W/COLLJ SPEC WHEN PFRMD 02/18/2019 Colonoscopy COLONOSCOPY FLX DX W/COLLJ SPEC WHEN PFRMD 04/10/2019 Colonoscopy EGD 11/18/13 gastritis and duodenitis TONSILLECTOMY HX 1970 ALLERGIES Environmental Allergies [Other] and Erythromycin MEDICATIONS cholecalciferol, Vitamin D3, (VITAMIN D3) 1,250 mcg (50,000 unit) cap capsule Take 1 capsule by mouth one time a week. betamethasone dipropionate (DIPROSONE) 0.05 % cream APPLY TO AFFECTED AREA(S) TOPICALLY TWICE DAILY omeprazole (PRILOSEC) 20 mg capsule TAKE 1 CAPSULE BY MOUTH 1/2 HOUR BEFORE BREAKFAST dicyclomine (BENTYL) 20 mg tablet Take 1 tablet by mouth four times daily as needed. balsalazide disodium (BALSALAZIDE ORAL) Take by mouth. aluminum chloride (DRYSOL) 20 % external solution Apply to affected area daily at bedtime. predniSONE (DELTASONE) 20 mg tablet Take 2 tablets by mouth once daily for 5 days. amoxicillin-clavulanic acid (AUGMENTIN) 875-125 mg per tablet Take 1 tablet by mouth twice daily for 7 days. albuterol HFA (PROAIR HFA) 90 mcg/actuation inhaler Inhale 2 Puffs as instructed every 4 hours as needed. fluticasone (FLONASE) 50 mcg/actuation nasal spray Use 2 Sprays in each nostril once daily. Rinse mouth after use. FAMILY HISTORY Problem Relation Age of Onset Allergies Mother unknown, took allergy injections Heart Mother murmur Hypertension Mother Allergies Sister cats Heart Maternal Grandmother heart murmur- from Social History Tobacco Use Smoking status: Former Packs/day: 0.30 Years: 15.00 Pack years: 4.50 Types: Cigarettes Quit date: 01/19/2016 Years since quittin.4 Smokeless tobacco: Current Types: Chew Substance Use Topics Alcohol use: Yes Comment: socially Drug use: No Review of Systems Constitutional: Negative for fever. HENT: Positive for congestion and sinus pain. Negative for ear pain, nosebleeds and sore throat. Respiratory: Positive for cough. Negative for shortness of breath and wheezing. Cardiovascular: Negative for chest pain. Musculoskeletal: Negative for neck pain. Skin: Negative for itching and rash. Objective Blood pressure 138/84, pulse 92, temperature 36.8 C (98.2 F), resp. rate 16, weight 81.6 kg (180 lb), SpO2 97 %. Physical Exam Constitutional: General: He is not in acute distress. Appearance: He is not toxic-appearing or diaphoretic. HENT: Head: Normocephalic and atraumatic. Cardiovascular: Rate and Rhythm: Normal rate and regular rhythm. Heart sounds: Normal heart sounds, S1 normal and S2 normal. Pulmonary: Effort: Pulmonary effort is normal. Breath sounds: Normal breath sounds. Lymphadenopathy: Cervical: No cervical adenopathy. Right cervical: No superficial cervical adenopathy. Left cervical: No superficial cervical adenopathy. Neurological: Mental Status: He is alert and oriented to person, place, and time. Gait: Gait is intact. ASSESSMENT/PLAN: 1. Sinobronchitis - ICD9: 473.9, 490, ICD10: J32.9, J40 Start prednisone today, if s/s do not improve in next 3 days fill/take atb rx. - Supportive care with plenty of fluids, rest, and analgesia prn. - Follow up in 3-5 days if symptoms persist or worsen. - PREDNISONE 20 MG TABLET - AMOXICILLIN 875 MG-POTASSIUM CLAVULANATE 125 MG TABLET - ALBUTEROL SULFATE HFA 90 MCG/ACTUATION AEROSOL INHALER - FLUTICASONE PROPIONATE 50 MCG/ACTUATION NASAL SPRAY,SUSPENSION Dimitry Umanzor APRN.BULK PICKER documented in this encounter [facility] 06-26-2022 Note HNO ID: [id number] Author: Anita Berkowitz MA Service: ? Author Type: Clinical Psychiatrist Type: Progress Notes Filed: 06/26/2022 8:22 PM Note Text: Scan on 06/26/2022 11:38 AM by External Provider: Miscellaneous Lab Anita Berkowitz MA [facility] 06-26-2022 Note HNO ID: [id number] Author: Beba Obando LPN Service: ? Author Type: ? Type: Progress Notes Filed: 06/26/2022 12:21 PM Note Text: Scan on 06/26/2022 11:38 AM by External Provider: Miscellaneous Lab [facility] 06-26-2022 History of Presen t illness Narrative Scan on 06/26/2022 11:38 AM by External Provider: Miscellaneous Lab Anita Berkowitz MA documented in this encounter [facility] 05-30-2022 Miscellaneous Notes Pt notified of results via [employer]. Courtney Langford Ma Left message for patient to contact office. Anita Berkowitz MA Let patient know B12, Mg, UA, prostate lab, blood sugar lab, electrolytes, liver and kidney functions were all ok. Lipid panel showed Trigs elevated at 224 (goal<150 and was 88), HDL ok at 40 and LDL ok at 116. Work on reduced fat in diet and increased exercise. Vit D low at 16.7. will start him on the VIt D 50,000 international unit(s) 's once a week. Script sent. The following approved medication requests have been transmitted electronically. Requested Prescriptions Signed Prescriptions Disp Refills cholecalciferol, Vitamin D3, (VITAMIN D3) 1,250 mcg (50,000 unit) cap capsule 12 capsule 3 Sig: Take 1 capsule by mouth one time a week. Authorizing Provider: SHERIDAN ALLEN MD documented in this encounter [facility] 05-26-2022 Note HNO ID: [id number] Author: Sheridan Allen MD Service: ? Author Type: Physician Type: Progress Notes Filed: 05/27/2022 6:17 PM Note Text: Chief Complaint Patient presents with: Physical HPI Usha Alvarez is a 56 year old male who presents here today for Chronic Medical Conditions. and Physical. Patient with Hx of GERD, Hyperlipidemia, OCD, TOÑO, mild intermittent asthma, Vit D def, chews tobacco, psoriasis as well as those reviewed below. Has had a URI the past 3 days and sometimes brings up some clear phlegm. Past medical history, appointments, medications, allergies reviewed. Previous Medical History PAST MEDICAL HISTORY Diagnosis Date Asthma 06/13/2010 Chews tobacco 11/09/2020 Started age 15, does a can every 3-4 days Daytime hypersomnolence 01/09/2013 Depression 12/09/2010 Diverticulosis 12/2018 Enterocolitis due to Clostridium difficile 05/19/2015 TOÑO (generalized anxiety disorder) 08/16/2018 GERD without esophagitis 03/22/2005 History of Clostridium difficile colitis 11/09/2020 Irritable bowel syndrome Lichen planus 11/18/2014 Lumbar degenerative disc disease 05/13/2015 Mild intermittent asthma without complication 06/13/2010 Mixed hyperlipidemia 08/22/2016 OCD (obsessive compulsive disorder) 04/08/2013 Other specified intestinal malabsorption Psoriasis 01/18/2015 Radiculopathy, lumbar region 05/13/2015 Vitamin D deficiency 10/25/2010 Previous Surgical History PAST SURGICAL HISTORY Procedure Laterality Date COLONOSCOPY 11/18/[address] Anthony COLONOSCOPY FLX DX W/COLLJ SPEC WHEN PFRMD 02/18/2019 Colonoscopy COLONOSCOPY FLX DX W/COLLJ SPEC WHEN PFRMD 04/10/2019 Colonoscopy EGD 11/18/13 gastritis and duodenitis TONSILLECTOMY HX 1970 Family History FAMILY HISTORY Problem Relation Age of Onset Allergies Mother unknown, took allergy injections Heart Mother murmur Hypertension Mother Allergies Sister cats Heart Maternal Grandmother heart murmur- from Patient Allergies ALLERGIES Allergen Reactions Environmental Aller* Unknown Cockroach, weeds, trees, grass, ragweed Erythromycin GI Upset GI upset Current Medications Current Outpatient Medications on File Prior to Visit Medication Sig betamethasone dipropionate (DIPROSONE) 0.05 % cream APPLY TO AFFECTED AREA(S) TOPICALLY TWICE DAILY cyclobenzaprine (FLEXERIL) 10 mg tablet Take 1 tablet by mouth three times daily as needed for muscle spasm. predniSONE (DELTASONE) 10 mg tablet Take 4 tabs daily for 3 days, then 2 tabs daily for 3 days, then 1 tab daily for 3 days with food. omeprazole (PRILOSEC) 20 mg capsule TAKE 1 CAPSULE BY MOUTH 1/2 HOUR BEFORE BREAKFAST dicyclomine (BENTYL) 20 mg tablet Take 1 tablet by mouth four times daily as needed. balsalazide disodium (BALSALAZIDE ORAL) Take by mouth. Cholecalciferol, Vitamin D3, 50 mcg (2,000 unit) cap Take 1 capsule by mouth once daily. aluminum chloride (DRYSOL) 20 % external solution Apply to affected area daily at bedtime. No current facility-administered medications on file prior to visit. Social History Social History Tobacco Use Smoking status: Former Packs/day: 0.30 Years: 15.00 Pack years: 4.50 Types: Cigarettes Quit date: 01/19/2016 Years since quittin.3 Smokeless tobacco: Current Types: Chew Substance Use Topics Alcohol use: Yes Comment: socially Drug use: No Review of Symptoms REVIEW OF SYSTEMS GENERAL: No weight loss, malaise or fevers HEENT: Negative for frequent or significant headaches, No changes in vision, no nose bleeds or other nasal problems. Hearing is decreased. Has slight post nasal drainage and slight scratchy throat. NECK: Negative for lumps, goiter, pain and significant neck swelling RESPIRATORY: Negative for hemoptysis, wheezing, COPD, dyspnea or shortness of breath. See HPI CARDIOVASCULAR: Negative for chest pain, leg swelling, hypertension, CHF or palpitations GI: No nausea, vomiting, or diarrhea, No heartburn or reflux symptoms, and no blood : No history of dysuria, blood MUSCULOSKELETAL: has pain in the left knee. SKIN: Negative for lesions, rash, and itching PSYCH: Negative for sleep disturbance, mood disorder and recent psychosocial stressors HEMATOLOGY/LYMPHOLOGY: Negative for prolonged bleeding, bruising easily or swollen nodes ENDOCRINE: Negative for cold or heat intolerance, polyuria, polydipsia and goiter NEURO: No history of headaches, syncope, paralysis, seizures or tremors EXAM: BP 136/86 (BP Site: Right Arm, BP Position: Sitting, BP Cuff Size: Regular Adult) Pulse 82 Temp 36.7 ?C (98.1 ?F) Resp 16 Ht 167.6 cm (5' 6 ) Wt 78.9 kg (174 lb) BMI 28.08 kg/m? General Appearance: Well appearing, alert, in no acute distress, well-hydrated, well nourished. and Overweight. Skin: Skin color, texture, turgor normal, no suspicious rashes or lesions. Head: Normocephalic, no masses, lesions (more content not included)... [facility] 05-26-2022 Instructions Sheridan Allen MD - 05/26/2022 3:11 PM EST You want to get the shingrix vaccine for the prevention of shingles you should check with your insurance first to see if covered. documented in this encounter [facility] 05-26-2022 History of Presen t illness Narrative Chief Complaint Patient presents with: Physical HPI Usha Alvarez is a 56 year old male who presents here today for Chronic Medical Conditions. and Physical. Patient with Hx of GERD, Hyperlipidemia, OCD, TOÑO, mild intermittent asthma, Vit D def, chews tobacco, psoriasis as well as those reviewed below. Has had a URI the past 3 days and sometimes brings up some clear phlegm. Past medical history, appointments, medications, allergies reviewed. Previous Medical History PAST MEDICAL HISTORY Diagnosis Date Asthma 06/13/2010 Chews tobacco 11/09/2020 Started age 15, does a can every 3-4 days Daytime hypersomnolence 01/09/2013 Depression 12/09/2010 Diverticulosis 12/2018 Enterocolitis due to Clostridium difficile 05/19/2015 TOÑO (generalized anxiety disorder) 08/16/2018 GERD without esophagitis 03/22/2005 History of Clostridium difficile colitis 11/09/2020 Irritable bowel syndrome Lichen planus 11/18/2014 Lumbar degenerative disc disease 05/13/2015 Mild intermittent asthma without complication 06/13/2010 Mixed hyperlipidemia 08/22/2016 OCD (obsessive compulsive disorder) 04/08/2013 Other specified intestinal malabsorption Psoriasis 01/18/2015 Radiculopathy, lumbar region 05/13/2015 Vitamin D deficiency 10/25/2010 Previous Surgical History PAST SURGICAL HISTORY Procedure Laterality Date COLONOSCOPY 11/18/[address] Anthony COLONOSCOPY FLX DX W/COLLJ SPEC WHEN PFRMD 02/18/2019 Colonoscopy COLONOSCOPY FLX DX W/COLLJ SPEC WHEN PFRMD 04/10/2019 Colonoscopy EGD 11/18/13 gastritis and duodenitis TONSILLECTOMY HX 1970 Family History FAMILY HISTORY Problem Relation Age of Onset Allergies Mother unknown, took allergy injections Heart Mother murmur Hypertension Mother Allergies Sister cats Heart Maternal Grandmother heart murmur- from Patient Allergies ALLERGIES Allergen Reactions Environmental Aller* Unknown Cockroach, weeds, trees, grass, ragweed Erythromycin GI Upset GI upset Current Medications Current Outpatient Medications on File Prior to Visit Medication Sig betamethasone dipropionate (DIPROSONE) 0.05 % cream APPLY TO AFFECTED AREA(S) TOPICALLY TWICE DAILY cyclobenzaprine (FLEXERIL) 10 mg tablet Take 1 tablet by mouth three times daily as needed for muscle spasm. predniSONE (DELTASONE) 10 mg tablet Take 4 tabs daily for 3 days, then 2 tabs daily for 3 days, then 1 tab daily for 3 days with food. omeprazole (PRILOSEC) 20 mg capsule TAKE 1 CAPSULE BY MOUTH 1/2 HOUR BEFORE BREAKFAST dicyclomine (BENTYL) 20 mg tablet Take 1 tablet by mouth four times daily as needed. balsalazide disodium (BALSALAZIDE ORAL) Take by mouth. Cholecalciferol, Vitamin D3, 50 mcg (2,000 unit) cap Take 1 capsule by mouth once daily. aluminum chloride (DRYSOL) 20 % external solution Apply to affected area daily at bedtime. No current facility-administered medications on file prior to visit. Social History Social History Tobacco Use Smoking status: Former Packs/day: 0.30 Years: 15.00 Pack years: 4.50 Types: Cigarettes Quit date: 01/19/2016 Years since quittin.3 Smokeless tobacco: Current Types: Chew Substance Use Topics Alcohol use: Yes Comment: socially Drug use: No Review of Symptoms REVIEW OF SYSTEMS GENERAL: No weight loss, malaise or fevers HEENT: Negative for frequent or significant headaches, No changes in vision, no nose bleeds or other nasal problems. Hearing is decreased. Has slight post nasal drainage and slight scratchy throat. NECK: Negative for lumps, goiter, pain and significant neck swelling RESPIRATORY: Negative for hemoptysis, wheezing, COPD, dyspnea or shortness of breath. See HPI CARDIOVASCULAR: Negative for chest pain, leg swelling, hypertension, CHF or palpitations GI: No nausea, vomiting, or diarrhea, No heartburn or reflux symptoms, and no blood : No history of dysuria, blood MUSCULOSKELETAL: has pain in the left knee. SKIN: Negative for lesions, rash, and itching PSYCH: Negative for sleep disturbance, mood disorder and recent psychosocial stressors HEMATOLOGY/LYMPHOLOGY: Negative for prolonged bleeding, bruising easily or swollen nodes ENDOCRINE: Negative for cold or heat intolerance, polyuria, polydipsia and goiter NEURO: No history of headaches, syncope, paralysis, seizures or tremors EXAM: BP 136/86 (BP Site: Right Arm, BP Position: Sitting, BP Cuff Size: Regular Adult) Pulse 82 Temp 36.7 C (98.1 F) Resp 16 Ht 167.6 cm (5' 6 ) Wt 78.9 kg (174 lb) BMI 28.08 kg/m General Appearance: Well appearing, alert, in no acute distress, well-hydrated, well nourished. and Overweight. Skin: Skin color, texture, turgor normal, no suspicious rashes or lesions. Head: Normocephalic, no masses, lesions, tenderness or abnormalities. Eyes: Anicteric sclera. Pupils are equally round and reactive to light. Extraocular movements are intact. . Ears: External ears normal, canals clear. Neck: Supple, no adenopathy; thyroid symmetric, normal size, no bruits. Lungs: Lungs clear to auscultation. No wheezing, rhonchi, rales.. Heart: RRR without murmur, gallop, or rubs. No ectopy. Abdomen: Normal abdominal exam, Abdomen soft, non-tender. Bowel sounds normal. No masses, organomegaly. Extremities: No deformities, edema, skin discoloration, Good capillary refill. . Musculoskeletal: Spine range of motion normal. Muscular strength intact, No joint swelling, deformity, or tenderness. Peripheral Pulses: Normal. Neurologic: Gait normal. Reflexes normal and symmetric. Sensation grossly intact.. Genitalia: Normal, Penis normal. No urethral discharge. Scrotum normal to palpation. No hernia.. Rectal: Normal exam. Prostate just slightly enlarged. Smooth firm capsule. Health Maintenance List HEPATITIS B(1 of 3 - 3-dose series) Never done SHINGRIX VACCINE(1 of 2) Never done COVID-19 VACCINE(3 - Booster for Pfizer series) due on 02/16/2021 PROSTATE CANCER SCREENING DISCUSSION due on 2021 INFLUENZA(1) due on 11/17/2021 DEPRESSION ASSESSMENT Never done ANNUAL PCP TEAM CHRONIC DISEASE VISIT due on 03/24/2023 DIABETES SCREEN due on 11/10/2023 LIPID SCREEN due on 11/09/2025 COLORECTAL CANCER SCREENING due on 04/10/2029 DTAP,TDAP,TD(3 - Td or Tdap) due on 11/09/2030 PNEUMOCOCCAL(3 - PPSV23 if available, else PCV20) due on 08/19/2031 SPIROMETRY Discontinued HEPATITIS C SCREENING Discontinued HIV SCREENING Discontinued Data reviewed A/P ASSESSMENT/PLAN: 1. Well adult exam - ICD9: V70.0, ICD10: Z00.00 (primary diagnosis) - Counseled on healthy diet and regular exercise - Risks/benefits of prostate cancer screening discussed. screening PSA ordered - Follow up for annual exam in one year Check - HGB A1C - PSA/PROSTSPECAG DIAG 2. Mixed hyperlipidemia - ICD9: 272.2, ICD10: E78.2 - to be determined upon return of lab results - Encouraged following a low fat, low cholesterol diet. - Discussed the benefits of regular aerobic exercise and weight loss. - Encouraged following a low carbohydrate, healthy oil intake diet. - Continue current therapy. - COMP METABOLIC PANEL - URINALYSIS, WITH MICROSCOPIC - LIPID PANEL, NONFASTING 3. GERD without esophagitis - ICD9: 530.81, ICD10: K21.9 - Continue treatment with Prilosec 20 mg every day Check - MAGNESIUM BLD - VITAMIN B12 BLOOD 4. Mild intermittent asthma without complication - ICD9: 493.90, ICD10: J45.20 Mild intermittent Asthma stable - Avoidance of triggers recommended 5. TOÑO (generalized anxiety disorder) - ICD9: 300.02, ICD10: F41.1 - stable not needing meds. 6. Vitamin D deficiency - ICD9: 268.9, ICD10: E55.9 Check - VITAMIN D 25 HYDROXY 7. Chews tobacco - ICD9: 305.1, ICD10: Z72.0 - Cessation encouraged. - Counseling was given focusing on the harmful effects of this addiction especially given the patient's medical condition(s) which will be worsened because of the chemicals in tobacco. 8. Primary osteoarthritis of both knees - ICD9: 715.16, ICD10: M17.0 - will monitor 9. Encounter for screening for diabetes mellitus - ICD9: V77.1, ICD10: Z13.1 Check - HGB A1C 10. Medication management - ICD9: V58.69, ICD10: Z79.899 - MAGNESIUM BLD - VITAMIN B12 BLOOD 11. Screening for prostate cancer - ICD9: V76.44, ICD10: Z12.5 check - PSA/PROSTSPECAG DIAG F/u 6 months routine Sheridan Allen MD documented in this encounter [facility] 03-24-2022 Note HNO ID: [id number] Author: Summer Scott RT(R) Service: Radiology Author Type: Technologist Type: Progress Notes Filed: 03/24/2022 5:15 PM Note Text: Radiology Service Progress Note PATIENT NAME: Usha Alvarez DATE OF SERVICE: March 24, 2022 TIME: 5:01 PM PATIENT IDENTITY VERIFICATION COMPLETED USING TWO (2) IDENTIFIERS: Name and Date of confirmed by patient verbally. FALL SCREENING: Has the patient had 2 falls in the last year or 1 fall with injury or currently using an Ambulatory Assistive Device (Walker, Cane, Wheelchair, Crutches, etc.)? No PATIENT GENDER DATA: Male PATIENT RELEVANT IMPLANT DATA REVIEWED: Yes RADIOLOGY DEPARTMENT: General X-ray: Exam(s) Completed: Lower Extremity X-Ray(s): Knee, AP / Lat / Tunne / Merchant Left and Wt. Bearing PERIPHERAL IV DATA: Not applicable SIGNED BY: Summer Scott RT(R) March 24, 2022 5:01 PM [facility] 03-24-2022 Note HNO ID: [id number] Author: Usha Borrero MD Service: ? Author Type: Physician Type: Progress Notes Filed: 03/24/2022 4:49 PM Note Text: Patient presents with: Knee Pain HPI: Patient presents today for office visit for left knee pain X 1 wk. Denies injury. Positional pain. At rest refers to dull ache. Tried stretching that causes popping . No pain with popping. No previous knee issues. No edema. Or redness or warmth. Can occasionally feel as if it is going to give out. Seen a few days ago for back pain. Only took one day of steroids. Still has at home. Seems to be better. MEDICATIONS: Current Outpatient Medications Medication Sig cyclobenzaprine (FLEXERIL) 10 mg tablet Take 1 tablet by mouth three times daily as needed for muscle spasm. predniSONE (DELTASONE) 10 mg tablet Take 4 tabs daily for 3 days, then 2 tabs daily for 3 days, then 1 tab daily for 3 days with food. omeprazole (PRILOSEC) 20 mg capsule TAKE 1 CAPSULE BY MOUTH 1/2 HOUR BEFORE BREAKFAST dicyclomine (BENTYL) 20 mg tablet Take 1 tablet by mouth four times daily as needed. balsalazide disodium (BALSALAZIDE ORAL) Take by mouth. Cholecalciferol, Vitamin D3, 50 mcg (2,000 unit) cap Take 1 capsule by mouth once daily. aluminum chloride (DRYSOL) 20 % external solution Apply to affected area daily at bedtime. No current facility-administered medications for this visit. ALLERGIES: ALLERGIES Allergen Reactions Environmental Aller* Unknown Cockroach, weeds, trees, grass, ragweed Erythromycin GI Upset GI upset PAST MEDICAL HISTORY Diagnosis Date Asthma 06/13/2010 Chews tobacco 11/09/2020 Started age 15, does a can every 3-4 days Daytime hypersomnolence 01/09/2013 Depression 12/09/2010 Diverticulosis 12/2018 Enterocolitis due to Clostridium difficile 05/19/2015 TOÑO (generalized anxiety disorder) 08/16/2018 GERD without esophagitis 03/22/2005 History of Clostridium difficile colitis 11/09/2020 Irritable bowel syndrome Lichen planus 11/18/2014 Lumbar degenerative disc disease 05/13/2015 Mild intermittent asthma without complication 06/13/2010 Mixed hyperlipidemia 08/22/2016 OCD (obsessive compulsive disorder) 04/08/2013 Other specified intestinal malabsorption Psoriasis 01/18/2015 Radiculopathy, lumbar region 05/13/2015 Vitamin D deficiency 10/25/2010 PAST SURGICAL HISTORY Procedure Laterality Date COLONOSCOPY 11/18/[address] Anthony COLONOSCOPY FLX DX W/COLLJ SPEC WHEN PFRMD 02/18/2019 Colonoscopy COLONOSCOPY FLX DX W/COLLJ SPEC WHEN PFRMD 04/10/2019 Colonoscopy EGD 11/18/13 gastritis and duodenitis TONSILLECTOMY HX 1970 FAMILY HISTORY Problem Relation Age of Onset Allergies Mother unknown, took allergy injections Heart Mother murmur Hypertension Mother Allergies Sister cats Heart Maternal Grandmother heart murmur- from Social History Tobacco Use Smoking status: Former Packs/day: 0.30 Years: 15.00 Pack years: 4.50 Types: Cigarettes Quit date: 01/19/2016 Years since quittin.1 Smokeless tobacco: Current Types: Chew Substance Use Topics Alcohol use: Yes Comment: socially Drug use: No Reviewed current medications, allergies, past medical history, surgical history, family history and social history today. REVIEW OF SYSTEMS All other reviewed and negative other than HPI. VITALS: BP 110/70 Pulse 80 Ht 170.2 cm (5' 7 ) Wt 82.6 kg (182 lb) SpO2 99% BMI 28.51 kg/m? Last 4 Encounter Wt Readings: Date: Wt: 03/21/2022 82.6 kg (182 lb) 03/06/2022 83.2 kg (183 lb 6.4 oz) 11/12/2021 77.1 kg (170 lb) 07/12/2021 79.1 kg (174 lb 6.4 oz) PHYSICAL EXAMINATION: General appearance: Well appearing, alert, in no acute distress, well-hydrated, well nourished. Skin: Skin color, texture, turgor normal, no suspicious rashes or lesions Head: Normocephalic, no masses, lesions, tenderness or abnormalities KNEE:Location: left Redness: No. Warmth: No. Crepitus: No. Effusion: No. Joint line tenderness: Yes on medial sign Lateral tenderness: No. Medial tenderness: No. Drawer sign negative: No. Medial or lateral laxity: Yes. Rita's sign: equivocal. No calf tenderness. ASSESSMENT/PLAN: 1. Acute pain of left knee - ICD9: 719.46, ICD10: M25.562 - has steroids at home. Start tonight. RICE Discussed risks and benefits of new medication with the patient. Advised them to call if any side effects or questions. Red flags for re-assessment reviewed with patient in detail. Call if symptoms worsen at all or if not better in one to two weeks Reviewed diagnosis and treatment options in detail. Questions were answered. Patient expressed understanding of treatment plan. -recommend ortho if continues or worsens. - XR KNEE GENERAL 4V AP BOTH/PA BOTH/LAT/MERC LEFT Usha Borrero MD [facility] 03-21-2022 Note HNO ID: [id number] Author: Susan Rowan APRN.BULK PICKER Service: ? Author Type: Nurse Practitioner Type: Progress Notes Filed: 03/21/2022 5:11 PM Note Text: This note was created using NoteWriter. Subjective Usha Alvarez is a 56 year old male. 56 year old male with PMH hyperlipidemia, GERD, asthma, and OCD presents for back pain. Acute onset one month ago Mid back Bilateral Endorses that he recently started working out, lifting weights in his basement. Denies sx. Denies fever or chills. Denies trauma or injury. Denies skin rash or lesions. Denies difficulty ambulating, unilateral weakness, bowel or bladder dysfunction, history of IV drug usage, saddle anesthesia. States that the pain was bothering him last night, and he thought maybe it was his mattress. States that he tried sleeping on couch, and that seemed better than my mattress....maybe I need a new one States that he is concerned that it could possibly be a kidney infection. Denies that he has followed up, but states he has appt coming up with Dr. Allen The history is provided by the patient. No senior business development manager was used. Back Pain This is a recurrent problem. The current episode started more than 1 week ago. The problem occurs constantly. The problem has not changed since onset.The pain is associated with no known injury. The pain is present in the thoracic spine. The quality of the pain is described as cramping and aching. The pain does not radiate. The pain is at a severity of 6/10. The pain is moderate. The symptoms are aggravated by bending, twisting and certain positions. The pain is The same all the time. Stiffness is present All day. Pertinent negatives include no chest pain, no fever, no numbness, no weight loss, no headaches, no abdominal pain, no abdominal swelling, no bowel incontinence, no perianal numbness, no bladder incontinence, no dysuria, no pelvic pain, no leg pain, no paresthesias, no paresis, no tingling and no weakness. He has tried nothing for the symptoms. The treatment provided no relief. PAST MEDICAL HISTORY Diagnosis Date Asthma 06/13/2010 Chews tobacco 11/09/2020 Started age 15, does a can every 3-4 days Daytime hypersomnolence 01/09/2013 Depression 12/09/2010 Diverticulosis 12/2018 Enterocolitis due to Clostridium difficile 05/19/2015 TOÑO (generalized anxiety disorder) 08/16/2018 GERD without esophagitis 03/22/2005 History of Clostridium difficile colitis 11/09/2020 Irritable bowel syndrome Lichen planus 11/18/2014 Lumbar degenerative disc disease 05/13/2015 Mild intermittent asthma without complication 06/13/2010 Mixed hyperlipidemia 08/22/2016 OCD (obsessive compulsive disorder) 04/08/2013 Other specified intestinal malabsorption Psoriasis 01/18/2015 Radiculopathy, lumbar region 05/13/2015 Vitamin D deficiency 10/25/2010 PAST SURGICAL HISTORY Procedure Laterality Date COLONOSCOPY 11/18/[address] Anthony COLONOSCOPY FLX DX W/COLLJ SPEC WHEN PFRMD 02/18/2019 Colonoscopy COLONOSCOPY FLX DX W/COLLJ SPEC WHEN PFRMD 04/10/2019 Colonoscopy EGD 11/18/13 gastritis and duodenitis TONSILLECTOMY HX 1970 ALLERGIES Environmental Allergies [Other] and Erythromycin MEDICATIONS omeprazole (PRILOSEC) 20 mg capsule TAKE 1 CAPSULE BY MOUTH 1/2 HOUR BEFORE BREAKFAST dicyclomine (BENTYL) 20 mg tablet Take 1 tablet by mouth four times daily as needed. balsalazide disodium (BALSALAZIDE ORAL) Take by mouth. Cholecalciferol, Vitamin D3, 50 mcg (2,000 unit) cap Take 1 capsule by mouth once daily. cyclobenzaprine (FLEXERIL) 10 mg tablet Take 1 tablet by mouth three times daily as needed for muscle spasm. predniSONE (DELTASONE) 10 mg tablet Take 4 tabs daily for 3 days, then 2 tabs daily for 3 days, then 1 tab daily for 3 days with food. aluminum chloride (DRYSOL) 20 % external solution Apply to affected area daily at bedtime. FAMILY HISTORY Problem Relation Age of Onset Allergies Mother unknown, took allergy injections Heart Mother murmur Hypertension Mother Allergies Sister cats Heart Maternal Grandmother heart murmur- from Social History Tobacco Use Smoking status: Former Packs/day: 0.30 Years: 15.00 Pack years: 4.50 Types: Cigarettes Quit date: 01/19/2016 Years since quittin.1 Smokeless tobacco: Current Types: Chew Substance Use Topics Alcohol use: Yes Comment: socially Drug use: No Review of Systems Constitutional: Negative for activity change, appetite change, fever and weight loss. Eyes: Negative for pain, discharge, redness and itching. Respiratory: Negative for apnea, choking and chest tightness. Cardiovascular: Negative for chest pain, palpitations and leg swelling. Gastrointestinal: Negative for abdominal pain, bowel incontinence, diarrhea, nausea and vomiting. Genitourinary: Negative for bladder incontinence, dysuria and pelvic pain. Musculoskeletal: Positive f (more content not included)... [facility] 03-21-2022 History of Presen t illness Narrative This note was created using NoteWriter. Subjective Usha Alvarez is a 56 year old male. 56 year old male with PMH hyperlipidemia, GERD, asthma, and OCD presents for back pain. Acute onset one month ago Mid back Bilateral Endorses that he recently started working out, lifting weights in his basement. Denies sx. Denies fever or chills. Denies trauma or injury. Denies skin rash or lesions. Denies difficulty ambulating, unilateral weakness, bowel or bladder dysfunction, history of IV drug usage, saddle anesthesia. States that the pain was bothering him last night, and he thought maybe it was his mattress. States that he tried sleeping on couch, and that seemed better than my mattress....maybe I need a new one States that he is concerned that it could possibly be a kidney infection. Denies that he has followed up, but states he has appt coming up with Dr. Allen The history is provided by the patient. No senior business development manager was used. Back Pain This is a recurrent problem. The current episode started more than 1 week ago. The problem occurs constantly. The problem has not changed since onset.The pain is associated with no known injury. The pain is present in the thoracic spine. The quality of the pain is described as cramping and aching. The pain does not radiate. The pain is at a severity of 6/10. The pain is moderate. The symptoms are aggravated by bending, twisting and certain positions. The pain is The same all the time. Stiffness is present All day. Pertinent negatives include no chest pain, no fever, no numbness, no weight loss, no headaches, no abdominal pain, no abdominal swelling, no bowel incontinence, no perianal numbness, no bladder incontinence, no dysuria, no pelvic pain, no leg pain, no paresthesias, no paresis, no tingling and no weakness. He has tried nothing for the symptoms. The treatment provided no relief. PAST MEDICAL HISTORY Diagnosis Date Asthma 06/13/2010 Chews tobacco 11/09/2020 Started age 15, does a can every 3-4 days Daytime hypersomnolence 01/09/2013 Depression 12/09/2010 Diverticulosis 12/2018 Enterocolitis due to Clostridium difficile 05/19/2015 TOÑO (generalized anxiety disorder) 08/16/2018 GERD without esophagitis 03/22/2005 History of Clostridium difficile colitis 11/09/2020 Irritable bowel syndrome Lichen planus 11/18/2014 Lumbar degenerative disc disease 05/13/2015 Mild intermittent asthma without complication 06/13/2010 Mixed hyperlipidemia 08/22/2016 OCD (obsessive compulsive disorder) 04/08/2013 Other specified intestinal malabsorption Psoriasis 01/18/2015 Radiculopathy, lumbar region 05/13/2015 Vitamin D deficiency 10/25/2010 PAST SURGICAL HISTORY Procedure Laterality Date COLONOSCOPY 11/18/[address] Anthony COLONOSCOPY FLX DX W/COLLJ SPEC WHEN PFRMD 02/18/2019 Colonoscopy COLONOSCOPY FLX DX W/COLLJ SPEC WHEN PFRMD 04/10/2019 Colonoscopy EGD 11/18/13 gastritis and duodenitis TONSILLECTOMY HX 1970 ALLERGIES Environmental Allergies [Other] and Erythromycin MEDICATIONS omeprazole (PRILOSEC) 20 mg capsule TAKE 1 CAPSULE BY MOUTH 1/2 HOUR BEFORE BREAKFAST dicyclomine (BENTYL) 20 mg tablet Take 1 tablet by mouth four times daily as needed. balsalazide disodium (BALSALAZIDE ORAL) Take by mouth. Cholecalciferol, Vitamin D3, 50 mcg (2,000 unit) cap Take 1 capsule by mouth once daily. cyclobenzaprine (FLEXERIL) 10 mg tablet Take 1 tablet by mouth three times daily as needed for muscle spasm. predniSONE (DELTASONE) 10 mg tablet Take 4 tabs daily for 3 days, then 2 tabs daily for 3 days, then 1 tab daily for 3 days with food. aluminum chloride (DRYSOL) 20 % external solution Apply to affected area daily at bedtime. FAMILY HISTORY Problem Relation Age of Onset Allergies Mother unknown, took allergy injections Heart Mother murmur Hypertension Mother Allergies Sister cats Heart Maternal Grandmother heart murmur- from Social History Tobacco Use Smoking status: Former Packs/day: 0.30 Years: 15.00 Pack years: 4.50 Types: Cigarettes Quit date: 01/19/2016 Years since quittin.1 Smokeless tobacco: Current Types: Chew Substance Use Topics Alcohol use: Yes Comment: socially Drug use: No Review of Systems Constitutional: Negative for activity change, appetite change, fever and weight loss. Eyes: Negative for pain, discharge, redness and itching. Respiratory: Negative for apnea, choking and chest tightness. Cardiovascular: Negative for chest pain, palpitations and leg swelling. Gastrointestinal: Negative for abdominal pain, bowel incontinence, diarrhea, nausea and vomiting. Genitourinary: Negative for bladder incontinence, dysuria and pelvic pain. Musculoskeletal: Positive for back pain. Negative for arthralgias and gait problem. Skin: Negative for color change, pallor, rash and wound. Allergic/Immunologic: Negative for environmental allergies, food allergies and immunocompromised state. Neurological: Negative for dizziness, tingling, facial asymmetry, weakness, numbness, headaches and paresthesias. Hematological: Negative for adenopathy. Does not bruise/bleed easily. Psychiatric/Behavioral: Negative for agitation and behavioral problems. Objective BP 128/80 Pulse 96 Temp 36.6 C (97.8 F) Resp 16 Wt 82.6 kg (182 lb) SpO2 98% BMI 28.51 kg/m Physical Exam Vitals and nursing note reviewed. Constitutional: General: He is not in acute distress. Appearance: Normal appearance. He is not ill-appearing, toxic-appearing or diaphoretic. HENT: Head: Normocephalic and atraumatic. Right Ear: External ear normal. Left Ear: External ear normal. Nose: Nose normal. No congestion or rhinorrhea. Mouth/Throat: Mouth: Mucous membranes are moist. Pharynx: Oropharynx is clear. No oropharyngeal exudate or posterior oropharyngeal erythema. Eyes: General: Right eye: No discharge. Left eye: No discharge. Extraocular Movements: Extraocular movements intact. Conjunctiva/sclera: Conjunctivae normal. Pupils: Pupils are equal, round, and reactive to light. Cardiovascular: Rate and Rhythm: Normal rate and regular rhythm. Pulses: Normal pulses. Heart sounds: Normal heart sounds. No murmur heard. No friction rub. No gallop. Pulmonary: Effort: Pulmonary effort is normal. No respiratory distress. Breath sounds: Normal breath sounds. No stridor. No wheezing, rhonchi or rales. Chest: Chest wall: No tenderness. Abdominal: General: Abdomen is flat. There is no distension. Palpations: Abdomen is soft. There is no mass. Tenderness: There is no abdominal tenderness. There is no guarding or rebound. Hernia: No hernia is present. Musculoskeletal: General: No swelling, tenderness, deformity or signs of injury. Normal range of motion. Cervical back: Normal range of motion and neck supple. No rigidity or tenderness. Right lower leg: No edema. Left lower leg: No edema. Comments: No midline cervical, thoracic, or lumbar TTP Diffuse bilateral paraspinal muscle tenderness and tightness Ambulatory 5/5 strength Lymphadenopathy: Cervical: No cervical adenopathy. Skin: General: Skin is warm and dry. Capillary Refill: Capillary refill takes less than 2 seconds. Coloration: Skin is not jaundiced or pale. Findings: No bruising, lesion or rash. Neurological: General: No focal deficit present. Mental Status: He is alert and oriented to person, place, and time. Cranial Nerves: No cranial nerve deficit. Sensory: No sensory deficit. Motor: No weakness. Coordination: Coordination normal. Gait: Gait normal. Deep Tendon Reflexes: Reflexes normal. Psychiatric: Mood and Affect: Mood normal. Behavior: Behavior normal. Thought Content: Thought content normal. Assessment and Plan ASSESSMENT/PLAN: 1. Acute bilateral thoracic back pain - ICD9: 724.1, ICD10: M54.6 Thoracic Spine region Ongoing No red flags - Warm moist heat for 20 min three times a day - Prednisone burst- see orders - Muscle relaxant- see orders - UA today negative - Patient given instructions use of medications as ordered, back care exercise program, improved posture, proper lifting techniques, intermittent use of heat, and avoiding sleeping on a heating pad - Follow up with Dr. Allen as directed. - UA DIP, URINE (POC) - CYCLOBENZAPRINE 10 MG TABLET - PREDNISONE 10 MG TABLET Susan Rowan APRN.RAJIV documented in this encounter [facility] 03-06-2022 Note HNO ID: [id number] Author: Meliton Nielsen PA-C Service: ? Author Type: Physician Manufacturing Job Titles Type: Progress Notes Filed: 03/06/2022 6:17 PM Note Text: This note was created using NoteWriter. Subjective Usha Alvarez is a 56 year old male. HPI Patient presents with mid back pain for the past month. He states it really bothers him when he wakes up in the morning and then when he gets going it feels a little bit better. No injury. He does do some lifting. Does have some degenerative changes in his lower spine. Denies weakness numbness or tingling. Denies significant change in pain with range of motion. No abdominal pain. He has had a little bit of bloating. No diarrhea or blood in stool. No chest pain or shortness of breath. He has history of colitis so tries to avoid nsaids. Review of Systems Constitutional: Negative. HENT: Negative. Musculoskeletal: Positive for back pain. All other systems reviewed and are negative. PAST MEDICAL HISTORY Diagnosis Date Asthma 06/13/2010 Chews tobacco 11/09/2020 Started age 15, does a can every 3-4 days Daytime hypersomnolence 01/09/2013 Depression 12/09/2010 Diverticulosis 12/2018 Enterocolitis due to Clostridium difficile 05/19/2015 TOÑO (generalized anxiety disorder) 08/16/2018 GERD without esophagitis 03/22/2005 History of Clostridium difficile colitis 11/09/2020 Irritable bowel syndrome Lichen planus 11/18/2014 Lumbar degenerative disc disease 05/13/2015 Mild intermittent asthma without complication 06/13/2010 Mixed hyperlipidemia 08/22/2016 OCD (obsessive compulsive disorder) 04/08/2013 Other specified intestinal malabsorption Psoriasis 01/18/2015 Radiculopathy, lumbar region 05/13/2015 Vitamin D deficiency 10/25/2010 Current Outpatient Medications Medication Sig Dispense Refill omeprazole (PRILOSEC) 20 mg capsule TAKE 1 CAPSULE BY MOUTH 1/2 HOUR BEFORE BREAKFAST 90 capsule 3 dicyclomine (BENTYL) 20 mg tablet Take 1 tablet by mouth four times daily as needed. 30 tablet 2 balsalazide disodium (BALSALAZIDE ORAL) Take by mouth. Cholecalciferol, Vitamin D3, 50 mcg (2,000 unit) cap Take 1 capsule by mouth once daily. aluminum chloride (DRYSOL) 20 % external solution Apply to affected area daily at bedtime. 60 mL 5 No current facility-administered medications for this visit. PAST SURGICAL HISTORY Procedure Laterality Date COLONOSCOPY 11/18/[address] Anthony COLONOSCOPY FLX DX W/COLLJ SPEC WHEN PFRMD 02/18/2019 Colonoscopy COLONOSCOPY FLX DX W/COLLJ SPEC WHEN PFRMD 04/10/2019 Colonoscopy EGD 11/18/13 gastritis and duodenitis TONSILLECTOMY HX 1970 FAMILY HISTORY Problem Relation Age of Onset Allergies Mother unknown, took allergy injections Heart Mother murmur Hypertension Mother Allergies Sister cats Heart Maternal Grandmother heart murmur- from Social History Tobacco Use Smoking status: Former Packs/day: 0.30 Years: 15.00 Pack years: 4.50 Types: Cigarettes Quit date: 01/19/2016 Years since quittin.1 Smokeless tobacco: Current Types: Chew Substance Use Topics Alcohol use: Yes Comment: socially Drug use: No Objective BP 138/84 Pulse 80 Temp 36.2 ?C (97.2 ?F) Resp 21 Wt 83.2 kg (183 lb 6.4 oz) SpO2 98% BMI 28.72 kg/m? Physical Exam Vitals reviewed. Constitutional: Appearance: Normal appearance. HENT: Head: Normocephalic and atraumatic. Cardiovascular: Rate and Rhythm: Normal rate and regular rhythm. Heart sounds: Normal heart sounds. Pulmonary: Effort: Pulmonary effort is normal. Breath sounds: Normal breath sounds. Musculoskeletal: Comments: Patient is tender midline mid thoracic spine. There is no bruising or erythema. No tenderness to the bilateral ribs. Full range of motion. Normal strength and sensation in his lower extremities. Skin: General: Skin is warm and dry. Findings: No rash. Neurological: Mental Status: He is alert. Assessment and Plan ASSESSMENT/PLAN: 1. Mid back pain - ICD9: 724.5, ICD10: M54.9 X-rays do show some degenerative changes. Discussed continuing Tylenol, rest, ice. If not improving would recommend follow-up with PCP for further work-up. Patient agreeable. - XR THORACIC GENERAL 3V AP/LAT/SWIMMERS Meliton Nielsen PA-C [facility] 03-06-2022 Note HNO ID: [id number] Author: RT Chelsey(R) Service: Nuclear Medicine Author Type: Technologist Type: Progress Notes Filed: 03/06/2022 4:51 PM Note Text: Radiology Service Progress Note PATIENT NAME: Usha Alvarez DATE OF SERVICE: March 06, 2022 TIME: 4:46 PM PATIENT IDENTITY VERIFICATION COMPLETED USING TWO (2) IDENTIFIERS: Name and Date of confirmed by patient verbally. FALL SCREENING: Has the patient had 2 falls in the last year or 1 fall with injury or currently using an Ambulatory Assistive Device (Walker, Cane, Wheelchair, Crutches, etc.)? No PATIENT GENDER DATA: Male PATIENT RELEVANT IMPLANT DATA REVIEWED: Not Applicable RADIOLOGY DEPARTMENT: General X-ray: Exam(s) Completed: Spine X-Ray(s): Thoracic PERIPHERAL IV DATA: Not applicable SIGNED BY: RT Chelsey(R) March 06, 2022 4:46 PM [facility] 03-06-2022 History of Presen t illness Narrative This note was created using Snapsortriter. Subjective Usha Alvarez is a 56 year old male. HPI Patient presents with mid back pain for the past month. He states it really bothers him when he wakes up in the morning and then when he gets going it feels a little bit better. No injury. He does do some lifting. Does have some degenerative changes in his lower spine. Denies weakness numbness or tingling. Denies significant change in pain with range of motion. No abdominal pain. He has had a little bit of bloating. No diarrhea or blood in stool. No chest pain or shortness of breath. He has history of colitis so tries to avoid nsaids. Review of Systems Constitutional: Negative. HENT: Negative. Musculoskeletal: Positive for back pain. All other systems reviewed and are negative. PAST MEDICAL HISTORY Diagnosis Date Asthma 06/13/2010 Chews tobacco 11/09/2020 Started age 15, does a can every 3-4 days Daytime hypersomnolence 01/09/2013 Depression 12/09/2010 Diverticulosis 12/2018 Enterocolitis due to Clostridium difficile 05/19/2015 TOÑO (generalized anxiety disorder) 08/16/2018 GERD without esophagitis 03/22/2005 History of Clostridium difficile colitis 11/09/2020 Irritable bowel syndrome Lichen planus 11/18/2014 Lumbar degenerative disc disease 05/13/2015 Mild intermittent asthma without complication 06/13/2010 Mixed hyperlipidemia 08/22/2016 OCD (obsessive compulsive disorder) 04/08/2013 Other specified intestinal malabsorption Psoriasis 01/18/2015 Radiculopathy, lumbar region 05/13/2015 Vitamin D deficiency 10/25/2010 Current Outpatient Medications Medication Sig Dispense Refill omeprazole (PRILOSEC) 20 mg capsule TAKE 1 CAPSULE BY MOUTH 1/2 HOUR BEFORE BREAKFAST 90 capsule 3 dicyclomine (BENTYL) 20 mg tablet Take 1 tablet by mouth four times daily as needed. 30 tablet 2 balsalazide disodium (BALSALAZIDE ORAL) Take by mouth. Cholecalciferol, Vitamin D3, 50 mcg (2,000 unit) cap Take 1 capsule by mouth once daily. aluminum chloride (DRYSOL) 20 % external solution Apply to affected area daily at bedtime. 60 mL 5 No current facility-administered medications for this visit. PAST SURGICAL HISTORY Procedure Laterality Date COLONOSCOPY 11/18/[address] Anthony COLONOSCOPY FLX DX W/COLLJ SPEC WHEN PFRMD 02/18/2019 Colonoscopy COLONOSCOPY FLX DX W/COLLJ SPEC WHEN PFRMD 04/10/2019 Colonoscopy EGD 11/18/13 gastritis and duodenitis TONSILLECTOMY HX 1970 FAMILY HISTORY Problem Relation Age of Onset Allergies Mother unknown, took allergy injections Heart Mother murmur Hypertension Mother Allergies Sister cats Heart Maternal Grandmother heart murmur- from Social History Tobacco Use Smoking status: Former Packs/day: 0.30 Years: 15.00 Pack years: 4.50 Types: Cigarettes Quit date: 01/19/2016 Years since quittin.1 Smokeless tobacco: Current Types: Chew Substance Use Topics Alcohol use: Yes Comment: socially Drug use: No Objective BP 138/84 Pulse 80 Temp 36.2 C (97.2 F) Resp 21 Wt 83.2 kg (183 lb 6.4 oz) SpO2 98% BMI 28.72 kg/m Physical Exam Vitals reviewed. Constitutional: Appearance: Normal appearance. HENT: Head: Normocephalic and atraumatic. Cardiovascular: Rate and Rhythm: Normal rate and regular rhythm. Heart sounds: Normal heart sounds. Pulmonary: Effort: Pulmonary effort is normal. Breath sounds: Normal breath sounds. Musculoskeletal: Comments: Patient is tender midline mid thoracic spine. There is no bruising or erythema. No tenderness to the bilateral ribs. Full range of motion. Normal strength and sensation in his lower extremities. Skin: General: Skin is warm and dry. Findings: No rash. Neurological: Mental Status: He is alert. Assessment and Plan ASSESSMENT/PLAN: 1. Mid back pain - ICD9: 724.5, ICD10: M54.9 X-rays do show some degenerative changes. Discussed continuing Tylenol, rest, ice. If not improving would recommend follow-up with PCP for further work-up. Patient agreeable. - XR THORACIC GENERAL 3V AP/LAT/SWIMMERS Meliton Nielsen PA-C documented in this encounter [facility] 11-12-2021 History of Presen t illness Narrative Chief Complaint Patient presents with: Groin Pain: X3-4 days HPI Usha Alvarez is a 56 year old male who presents here today for Above Complaints.. The groin pain started about 3 days ago mainly on the right. No known injury, heavy lifting, pushing or pulling. He has not seen a bulge in the are. He took a dicyclomine last night and again this AM and does seem better. Patient has diarrhea off and on but nothing new to baseline. He has seen no blood or melena in his stool. Is seeing GI for abdominal w/u. Left ear has been bothering him. Has been using some sweet oil and seems improved today. Past medical history, appointments, medications, allergies reviewed. Previous Medical History PAST MEDICAL HISTORY Diagnosis Date Asthma 06/13/2010 Chews tobacco 11/09/2020 Started age 15, does a can every 3-4 days Daytime hypersomnolence 01/09/2013 Depression 12/09/2010 Diverticulosis 12/2018 Enterocolitis due to Clostridium difficile 05/19/2015 TOÑO (generalized anxiety disorder) 08/16/2018 GERD without esophagitis 03/22/2005 History of Clostridium difficile colitis 11/09/2020 Irritable bowel syndrome Lichen planus 11/18/2014 Lumbar degenerative disc disease 05/13/2015 Mild intermittent asthma without complication 06/13/2010 Mixed hyperlipidemia 08/22/2016 OCD (obsessive compulsive disorder) 04/08/2013 Other specified intestinal malabsorption Psoriasis 01/18/2015 Radiculopathy, lumbar region 05/13/2015 Vitamin D deficiency 10/25/2010 Previous Surgical History PAST SURGICAL HISTORY Procedure Laterality Date COLONOSCOPY 11/18/[address] Anthony COLONOSCOPY FLX DX W/COLLJ SPEC WHEN PFRMD 02/18/2019 Colonoscopy COLONOSCOPY FLX DX W/COLLJ SPEC WHEN PFRMD 04/10/2019 Colonoscopy EGD 11/18/13 gastritis and duodenitis TONSILLECTOMY HX 1970 Family History FAMILY HISTORY Problem Relation Age of Onset Allergies Mother unknown, took allergy injections Heart Mother murmur Hypertension Mother Allergies Sister cats Heart Maternal Grandmother heart murmur- from Patient Allergies ALLERGIES Allergen Reactions Environmental Aller* Unknown Cockroach, weeds, trees, grass, ragweed Erythromycin GI Upset GI upset Current Medications Current Outpatient Medications on File Prior to Visit Medication Sig omeprazole (PRILOSEC) 20 mg capsule TAKE 1 CAPSULE BY MOUTH 1/2 HOUR BEFORE BREAKFAST betamethasone dipropionate (DIPROSONE) 0.05 % cream Apply to affected area twice daily. dicyclomine (BENTYL) 20 mg tablet Take 1 tablet by mouth four times daily as needed. balsalazide disodium (BALSALAZIDE ORAL) Take by mouth. Cholecalciferol, Vitamin D3, 50 mcg (2,000 unit) cap Take 1 capsule by mouth once daily. aluminum chloride (DRYSOL) 20 % external solution Apply to affected area daily at bedtime. benzonatate (TESSALON PERLES) 100 mg capsule Take 1 capsule by mouth three times daily as needed for cough. No current facility-administered medications on file prior to visit. Social History Social History Tobacco Use Smoking status: Former Packs/day: 0.30 Years: 15.00 Pack years: 4.50 Types: Cigarettes Quit date: 01/19/2016 Years since quittin.8 Smokeless tobacco: Current Types: Chew Substance Use Topics Alcohol use: Yes Comment: socially Drug use: No Review of Symptoms REVIEW OF SYSTEMS See HPI EXAM: BP 102/76 (BP Site: Left Arm, BP Position: Sitting, BP Cuff Size: Large Adult) Pulse 64 Temp 36.6 C (97.9 F) Resp 16 Wt 77.1 kg (170 lb) BMI 26.63 kg/m General Appearance: Well appearing, alert, in no acute distress, well-hydrated, well nourished.. Ears: External ears, TM's normal, canals clear. Abdomen: Normal abdominal exam, Abdomen soft, non-tender. Bowel sounds normal. No masses, organomegaly. Genitalia: Normal, Penis normal. No urethral discharge. Scrotum normal to palpation. No hernia.. Health Maintenance List HEPATITIS B(1 of 3 - 3-dose series) Never done SHINGRIX VACCINE(1 of 2) Never done COVID-19 VACCINE(3 - Booster for Pfizer series) due on 05/22/2021 PROSTATE CANCER SCREENING DISCUSSION due on 2021 INFLUENZA(1) due on 11/17/2021 ANNUAL PCP TEAM CHRONIC DISEASE VISIT due on 11/12/2022 DIABETES SCREEN due on 11/10/2023 LIPID SCREEN due on 11/09/2025 COLORECTAL CANCER SCREENING due on 04/10/2029 DTAP,TDAP,TD(3 - Td or Tdap) due on 11/09/2030 PNEUMOCOCCAL(3 - PPSV23 or PCV20) due on 08/19/2031 SPIROMETRY Discontinued HEPATITIS C SCREENING Discontinued HIV SCREENING Discontinued DEPRESSION SCREENING Discontinued Data reviewed A/P ASSESSMENT/PLAN: 1. Left ear pain - ICD9: 388.70, ICD10: H92.02 (primary diagnosis) - normal exam - discussed possible causes such as a piece of ear wax that has resolved with the use of the sweet oil or even some eustachian tube dysfunction. 2. RLQ abdominal pain - ICD9: 789.03, ICD10: R10.31 - exam within normal limits. Question IBS with improvement with the dicyclomine. - patient to continue f/u with GI F/u 6 months WAE or sooner if issues. Sheridan Allen MD documented in this encounter [facility] 08-29-2021 Miscellaneous Notes Letter mailed to pt home, notifying him to call in and schedule his physical in Oct/Nov. Courtney Langford Ma Left additional message for patient to contact office. Anita Berkowitz MA Left a message for pt to call the office and ask to speak to a triage nurse. Cheyanne Pham LPN I approved both medicines. He does not have an appointment coming up, Please reach out and advise patient to schedule his yearly come October/November. Thanks, Susan Rowan BENZOL STILL OPERATOR-BC wendi-- 07/12/21 Next -- none scheduled Last refill-- Betamethasone 11/09/20 30g With 3 refills Omeprazole-- 02/26/2020 90 with 3 refills Last labs-- 07/22/[address] encounter [facility] 07-12-2021 Miscellaneous Notes Pt called and is notified of providers results. Pt voices understanding. Christel Gastelum RN Please call patient and let him know his back xray shows some mild arthritic changes. Thanks, Beatriz Pratt APRN.RAJIV documented in this encounter [facility] 07-12-2021 Instructions Beatriz Pratt APRN.RAJIV - 07/12/2021 9:54 AM EDT EMERGENCY DEPARTMENT LOW BACK PAIN GENERAL INFORMATION: Low back pain is located in the small of the back. The pain may be related to sprained muscles or ligaments, to muscle spasms, or to herniation of a spinal disc. There are many possible causes of back pain, but the most common causes are gradual wear and tear, physical and emotional stress, and weak or tense muscles from lack of proper exercise. The pain can develop quickly or overnight and may be caused by unusual exertion such as moving furniture or heavy lifting. Low back pain can be severe, and sometimes you may be unable to move without pain. INSTRUCTIONS: 1. During the first 24 hours, apply ice packs to your back for 10-20 minutes 3 to 4 times a day. Put the ice in a plastic bag and place a towel between the bag of ice and your skin. After 24 hours, apply heat to your back with a heating pad set on low or a warm water bottle for 30 minutes every 3 to 4 hours. A gentle massage and warm showers may also be helpful. 2. Stay in bed for 1 to 2 days. Then begin normal activities as you can tolerate without causing pain. 3. Bend at the hips and knees; never bend from the waist only. Lift with your legs, not your back. 4. Sleep on a firm mattress or put a to 1 inch piece of plywood between the mattress and box springs. Do not use a waterbed because it does not support your back correctly. Sleep with a pillow under your knees or sleep on your side with your knees bent. 5. Wear low-heeled shoes. 6. If you are overweight, losing weight will help prevent another attack. 7. Begin a program of back exercises to prevent future episodes of pain. Walking, swimming, and bicycling are good exercise. Avoid exercises that put stress on the back, such as rowing and jogging. CONTACT YOUR DOCTOR OR RETURN TO THE ED IF: 1. You have shooting pains into your buttocks, groin, or legs. 2. You have difficulty urinating or lose control of bowel or bladder function. 3. You have numbness or weakness in your legs or feet. documented in this encounter [facility] 07-12-2021 History of Presen t illness Narrative 07/12/2021 Patient presents with: Back Pain: lower back x2 days; lifting injury SUBJECTIVE: This is a 55 year old that is here today for Above Complaints. ONSET: Sunday after lifting mower LOCATION: midline base of spine DURATION: intermittent CHARACTERISTICS: sharp AGGRAVATING FEATURES: with getting out of chair if coughs get sharp pain ALLEVIATING FEATURES: took tylenol and naproxen RADIATION: none Denies hx of back pain or surgery, extremity numbness, tingling or weakness, saddle anaesthesia, or urinary/bowel incontinence or inability PAST MEDICAL HISTORY Diagnosis Date Asthma 06/13/2010 Chews tobacco 11/09/2020 Started age 15, does a can every 3-4 days Daytime hypersomnolence 01/09/2013 Depression 12/09/2010 Diverticulosis 12/2018 Enterocolitis due to Clostridium difficile 05/19/2015 TOÑO (generalized anxiety disorder) 08/16/2018 GERD without esophagitis 03/22/2005 History of Clostridium difficile colitis 11/09/2020 Irritable bowel syndrome Lichen planus 11/18/2014 Lumbar degenerative disc disease 05/13/2015 Mild intermittent asthma without complication 06/13/2010 Mixed hyperlipidemia 08/22/2016 OCD (obsessive compulsive disorder) 04/08/2013 Other specified intestinal malabsorption Psoriasis 01/18/2015 Radiculopathy, lumbar region 05/13/2015 Vitamin D deficiency 10/25/2010 ALLERGIES Environmental Allergies [Other] and Erythromycin MEDICATIONS Current Outpatient Medications Medication Sig Olopatadine (PATADAY ONCE DAILY RELIEF) 0.2 % drop Use 1 Drop in both eyes once daily. cetirizine (ZYRTEC) 10 mg tablet Take 1 tablet by mouth once daily. fluticasone (FLONASE) 50 mcg/actuation nasal spray Use 2 Sprays in each nostril twice daily. Rinse mouth after use. dicyclomine (BENTYL) 20 mg tablet Take 1 tablet by mouth four times daily as needed. balsalazide disodium (BALSALAZIDE ORAL) Take by mouth. benzonatate (TESSALON PERLES) 100 mg capsule Take 1 capsule by mouth three times daily as needed for cough. Cholecalciferol, Vitamin D3, 50 mcg (2,000 unit) cap Take 1 capsule by mouth once daily. omeprazole (PRILOSEC) 20 mg capsule TAKE 1 CAPSULE BY MOUTH 1/2 HOUR BEFORE BREAKFAST aluminum chloride (DRYSOL) 20 % external solution Apply to affected area daily at bedtime. No current facility-administered medications for this visit. Medications and allergies reviewed by this provider. SOCIAL HISTORY Social History Tobacco Use Smoking status: Former Smoker Packs/day: 0.30 Years: 15.00 Pack years: 4.50 Types: Cigarettes Quit date: 01/19/2016 Years since quittin.4 Smokeless tobacco: Current User Types: Chew Substance Use Topics Alcohol use: Yes Comment: socially Drug use: No REVIEW OF SYSTEMS All other reviewed and negative other than HPI. OBJECTIVE: BP 136/82 Pulse 70 Resp 18 Wt 79.1 kg (174 lb 6.4 oz) SpO2 99% BMI 27.31 kg/m . Vital signs reviewed by this provider. APPEARANCE Well appearing, alert, in no acute distress, well-hydrated, well nourished. EYES conjunctiva and sclera normal. BACK: No obvious deformity, swelling, or skin rashes to back observed. Mild TTP lower lumbar midline. Some decrease in flexion and extension with some discomfort while doing EXTREMITIES Extremities normal, No deformities, No skin discoloration and No edema NEURO Awake, alert and oriented x 3, Reflexes symmetrical, Normal gait, No involuntary motions. and negative findings: muscle tone normal, muscle strength normal SKIN Skin color, texture, turgor normal, no suspicious rashes or lesions to exposed skin SHINGRIX VACCINE(1 of 2) Never done COVID-19 VACCINE(3 - Booster for Pfizer series) due on 05/22/2021 INFLUENZA(Season Ended) due on 11/17/2021 ANNUAL PCP TEAM CHRONIC DISEASE VISIT due on 07/12/2022 DIABETES SCREEN due on 11/10/2023 LIPID SCREEN due on 11/09/2025 COLORECTAL CANCER SCREENING due on 04/10/2029 DTAP,TDAP,TD(3 - Td or Tdap) due on 11/09/2030 ONE PNEUMOVAX PRIOR TO AGE 65 Completed MENINGOCOCCAL CONJUGATE Aged Out SPIROMETRY Discontinued HEPATITIS C SCREENING Discontinued HIV SCREENING Discontinued DEPRESSION SCREENING Discontinued ASSESSMENT/PLAN: 1. Lumbar back pain - ICD9: 724.2, ICD10: M54.50 - no red flag symptoms or exam findings - red flag symptoms discussed, verbalizes understanding - may use OTC NSAID products, stretches as instructed on paper, OTC topicals - follow-up if symptoms fail to improve to ER with red flag symptoms - letter provided for off work through Sunday - XR LUMBAR GENERAL 3V AP/LAT/L5-S1 Beatriz Pratt APRN.BULK PICKER Prescription instructions reviewed with patient as applicable. Patient advised if symptoms do not improve or if symptoms worsen sooner, to contact their primary care physician. Potential red flag symptoms discussed with the patient. Reviewed appropriate action plan to take if red flag symptoms occur. Patient agreeable to treatment plan. documented in this encounter [facility] 06-27-2021 Instructions Tisha Hernandez APRN.RAJIV - 06/27/2021 9:45 AM EDT 1.) Recommend using Zyrtec 10 mg daily, Flonase twice daily. 2.) If needed may use 5-10 mg sudafed ( decongestant) for sinus congestion. 3.) Follow up as needed. May use the Olopatadine eye drop daily for allergy symptoms. documented in this encounter [facility] 06-27-2021 History of Presen t illness Narrative This is a 55 year old male who presents today with: Patient presents with: Acute Visit: allergies HISTORY OF PRESENT ILLNESS: Usha Alvarez is a 55 year old male. Patient presents with: Acute Visit: allergies Patient of Dr. Allen here in office for seasonal allergy concerns. Refers that every spring and fall will get symptoms. Runny nose, post nasal drip, and itchy eyes. Has been using Claritin and OTC allergy eye drops. Claritin has not been effective. PAST MEDICAL HISTORY: PAST MEDICAL HISTORY Diagnosis Date Asthma 06/13/2010 Chews tobacco 11/09/2020 Started age 15, does a can every 3-4 days Daytime hypersomnolence 01/09/2013 Depression 12/09/2010 Diverticulosis 12/2018 Enterocolitis due to Clostridium difficile 05/19/2015 TOÑO (generalized anxiety disorder) 08/16/2018 GERD without esophagitis 03/22/2005 History of Clostridium difficile colitis 11/09/2020 Irritable bowel syndrome Lichen planus 11/18/2014 Lumbar degenerative disc disease 05/13/2015 Mild intermittent asthma without complication 06/13/2010 Mixed hyperlipidemia 08/22/2016 OCD (obsessive compulsive disorder) 04/08/2013 Other specified intestinal malabsorption Psoriasis 01/18/2015 Radiculopathy, lumbar region 05/13/2015 Vitamin D deficiency 10/25/2010 PAST SURGICAL HISTORY Procedure Laterality Date COLONOSCOPY 11/18/[address] Anthony COLONOSCOPY FLX DX W/COLLJ SPEC WHEN PFRMD 02/18/2019 Colonoscopy COLONOSCOPY FLX DX W/COLLJ SPEC WHEN PFRMD 04/10/2019 Colonoscopy EGD 11/18/13 gastritis and duodenitis TONSILLECTOMY HX 1970 ALLERGIES Environmental Allergies [Other] and Erythromycin MEDICATIONS Current Outpatient Medications Medication Sig dicyclomine (BENTYL) 20 mg tablet Take 1 tablet by mouth four times daily as needed. balsalazide disodium (BALSALAZIDE ORAL) Take by mouth. benzonatate (TESSALON PERLES) 100 mg capsule Take 1 capsule by mouth three times daily as needed for cough. (Patient not taking: Reported on 02/19/2021 ) Cholecalciferol, Vitamin D3, 50 mcg (2,000 unit) cap Take 1 capsule by mouth once daily. aluminum chloride (DRYSOL) 20 % external solution Apply to affected area daily at bedtime. omeprazole (PRILOSEC) 20 mg capsule TAKE 1 CAPSULE BY MOUTH 1/2 HOUR BEFORE BREAKFAST No current facility-administered medications for this visit. FAMILY HISTORY Problem Relation Age of Onset Allergies Mother unknown, took allergy injections Heart Mother murmur Hypertension Mother Allergies Sister cats Heart Maternal Grandmother heart murmur- from Social History Tobacco Use Smoking status: Former Smoker Packs/day: 0.30 Years: 15.00 Pack years: 4.50 Types: Cigarettes Quit date: 01/19/2016 Years since quittin.4 Smokeless tobacco: Current User Types: Chew Substance Use Topics Alcohol use: Yes Comment: socially Drug use: No REVIEW OF SYSTEMS GENERAL: No weight loss, malaise or fevers/chills HEENT: + Post nasal drip/rhinnorhea NECK: Negative for lumps, goiter, pain and significant neck swelling RESPIRATORY: Negative for cough, hemoptysis, wheezing, dyspnea or shortness of breath CARDIOVASCULAR: Negative for chest pain, leg swelling, orthopnea, or palpitations GI: No nausea, vomiting, or diarrhea/constipation. No hematochezia/melena. No heartburn or reflux symptoms. : No history of dysuria, frequency or incontinence MUSCULOSKELETAL: Negative for joint pain or swelling. SKIN: Negative for lesions, rash, and itching ENDOCRINE: Negative for cold or heat intolerance, polyuria, polydipsia and goiter NEURO: No history of headaches, syncope, paralysis, seizures or tremors MOOD: Negative for depression, anxiety, or suicidal ideation. EXAM: BP 122/80 Pulse 86 Resp 16 Wt 77.1 kg (170 lb) SpO2 97% BMI 26.63 kg/m PHYSICAL EXAM: General Appearance: Well appearing, alert, in no acute distress, well-hydrated, well nourished. Skin: Skin color, texture, turgor normal, no suspicious rashes or lesions. Head: Normocephalic, no masses, lesions, tenderness or abnormalities. Eyes: Anicteric sclera. Extraocular movements are intact. Ears: External ears normal, canals clear. TM's dull. Nose/Sinuses: Positive findings: mucosa erythematous and swollen. Oropharynx: Lips, mucosa, and tongue normal, teeth and gums normal, oropharynx normal. Lungs: Lungs clear to auscultation. No wheezing, rhonchi, rales. Heart: RRR without murmur, gallop, or rubs. No ectopy. Extremities: No deformities, edema, skin discoloration, clubbing or cyanosis. Good capillary refill. Peripheral Pulses: Normal, Capillary refill <2secs, strong peripheral pulses, Pulses palpable. ASSESSMENT/PLAN: 1. Seasonal allergies - ICD9: 477.9, ICD10: J30.2 - May use Zyrtec 10 mg daily, Flonase twice daily, and olopatadine daily for allergy symptoms. - OLOPATADINE 0.2 % EYE DROPS - CETIRIZINE 10 MG TABLET - FLUTICASONE PROPIONATE 50 MCG/ACTUATION NASAL SPRAY,SUSPENSION Follow-up as needed or sooner if symptoms get worse or do not improve. Discussed treatment plan and patient voices understanding. Patient's questions answered appropriately. Medications and potential side effects were discussed and patient voices understanding. Tisha Hernandez APRN.BULK PICKER This note was partially generated using [employer] voice recognition system. Note was reviewed for accuracy. There may be minor misspellings or grammar miscues with [employer] voice recognition. documented in this encounter [facility] documented as of this encounter (statuses as of 06/27/2021) [facility] History of Past illness Narrative* Problem Noted Date Resolved Date Segmental and somatic dysfunction of pelvic corby on 10/24/2017 10/25/2017 Elevated liver function tests 06/04/2016 Alcohol use 06/03/2016 02/14/2017 Enterocolitis due to Clostridium difficile 05/1806/03/2016 Radiculopathy, lumbar region 05/13/2015 Midline thoracic back pain 11/18/201406/04 Daytime hypersomnolence 01/09/2013 10/26/19 18 Depression 12/09/2010 10/25/2017 Onychia and paronychia of toe 11/30/2010 Supraspinatus tendonitis 11/10/2008 017 Medial epicondylitis of elbow 05/04/2008 EXANTHEM////NONSPECIF SKIN ERUPT NEC 12/09/2007 06/04/2016 Cough 07/23/2006 06/04/2016 Tobacco use disorder 05/17/2006 04/09/2018 Irritable bowel syndrome 018 documented as of this encounter (statuses as of 07/12/2021) [facility] History of Past illness Narrative* Problem Noted Date Resolved Date Segmental and somatic dysfunction of pelvic corby on 10/24/2017 10/25/2017 Elevated liver function tests 06/04/2016 Alcohol use 06/03/2016 02/14/2017 Enterocolitis due to Clostridium difficile 05/1806/03/2016 Radiculopathy, lumbar region 05/13/2015 Midline thoracic back pain 11/18/201406/04 Daytime hypersomnolence 01/09/2013 10/26/19 18 Depression 12/09/2010 10/25/2017 Onychia and paronychia of toe 11/30/2010 Supraspinatus tendonitis 11/10/2008 017 Medial epicondylitis of elbow 05/04/2008 EXANTHEM////NONSPECIF SKIN ERUPT NEC 12/09/2007 06/04/2016 Cough 07/23/2006 06/04/2016 Tobacco use disorder 05/17/2006 04/09/2018 Irritable bowel syndrome 018 documented as of this encounter (statuses as of 07/12/2021) [facility] History of Past illness Narrative* Problem Noted Date Resolved Date Segmental and somatic dysfunction of pelvic corby on 10/24/2017 10/25/2017 Elevated liver function tests 06/04/2016 Alcohol use 06/03/2016 02/14/2017 Enterocolitis due to Clostridium difficile 05/1806/03/2016 Radiculopathy, lumbar region 05/13/2015 Midline thoracic back pain 11/18/201406/04 Daytime hypersomnolence 01/09/2013 10/26/19 18 Depression 12/09/2010 10/25/2017 Onychia and paronychia of toe 11/30/2010 Supraspinatus tendonitis 11/10/2008 017 Medial epicondylitis of elbow 05/04/2008 EXANTHEM////NONSPECIF SKIN ERUPT NEC 12/09/2007 06/04/2016 Cough 07/23/2006 06/04/2016 Tobacco use disorder 05/17/2006 04/09/2018 Irritable bowel syndrome 018 documented as of this encounter (statuses as of 08/29/2021) [facility] History of Past illness Narrative* Problem Noted Date Resolved Date Segmental and somatic dysfunction of pelvic corby on 10/24/2017 10/25/2017 Elevated liver function tests 06/04/2016 Alcohol use 06/03/2016 02/14/2017 Enterocolitis due to Clostridium difficile 05/1806/03/2016 Radiculopathy, lumbar region 05/13/2015 Midline thoracic back pain 11/18/201406/04 Daytime hypersomnolence 01/09/2013 10/26/19 18 Depression 12/09/2010 10/25/2017 Onychia and paronychia of toe 11/30/2010 Supraspinatus tendonitis 11/10/2008 017 Medial epicondylitis of elbow 05/04/2008 EXANTHEM////NONSPECIF SKIN ERUPT NEC 12/09/2007 06/04/2016 Cough 07/23/2006 06/04/2016 Tobacco use disorder 05/17/2006 04/09/2018 Irritable bowel syndrome 018 documented as of this encounter (statuses as of 11/13/2021) [facility] History of Past illness Narrative* Problem Noted Date Resolved Date Segmental and somatic dysfunction of pelvic corby on 10/24/2017 10/25/2017 Elevated liver function tests 06/04/2016 Alcohol use 06/03/2016 02/14/2017 Enterocolitis due to Clostridium difficile 05/1806/03/2016 Radiculopathy, lumbar region 05/13/2015 Midline thoracic back pain 11/18/201406/04 Daytime hypersomnolence 01/09/2013 10/26/19 18 Depression 12/09/2010 10/25/2017 Onychia and paronychia of toe 11/30/2010 Supraspinatus tendonitis 11/10/2008 017 Medial epicondylitis of elbow 05/04/2008 EXANTHEM////NONSPECIF SKIN ERUPT NEC 12/09/2007 06/04/2016 Cough 07/23/2006 06/04/2016 Tobacco use disorder 05/17/2006 04/09/2018 Irritable bowel syndrome 018 documented as of this encounter (statuses as of 03/06/2022) [facility] History of Past illness Narrative* Problem Noted Date Resolved Date Segmental and somatic dysfunction of pelvic corby on 10/24/2017 10/25/2017 Elevated liver function tests 06/04/2016 Alcohol use 06/03/2016 02/14/2017 Enterocolitis due to Clostridium difficile 05/1806/03/2016 Radiculopathy, lumbar region 05/13/2015 Midline thoracic back pain 11/18/201406/04 Daytime hypersomnolence 01/09/2013 10/26/19 18 Depression 12/09/2010 10/25/2017 Onychia and paronychia of toe 11/30/2010 Supraspinatus tendonitis 11/10/2008 017 Medial epicondylitis of elbow 05/04/2008 EXANTHEM////NONSPECIF SKIN ERUPT NEC 12/09/2007 06/04/2016 Cough 07/23/2006 06/04/2016 Tobacco use disorder 05/17/2006 04/09/2018 Irritable bowel syndrome 018 documented as of this encounter (statuses as of 03/23/2022) [facility] History of Past illness Narrative* Problem Noted Date Resolved Date Segmental and somatic dysfunction of pelvic corby on 10/24/2017 10/25/2017 Elevated liver function tests 06/04/2016 Alcohol use 06/03/2016 02/14/2017 Enterocolitis due to Clostridium difficile 05/1806/03/2016 Radiculopathy, lumbar region 05/13/2015 Midline thoracic back pain 11/18/201406/04 Daytime hypersomnolence 01/09/2013 10/26/19 18 Depression 12/09/2010 10/25/2017 Onychia and paronychia of toe 11/30/2010 Supraspinatus tendonitis 11/10/2008 017 Medial epicondylitis of elbow 05/04/2008 EXANTHEM////NONSPECIF SKIN ERUPT NEC 12/09/2007 06/04/2016 Cough 07/23/2006 06/04/2016 Tobacco use disorder 05/17/2006 04/09/2018 Irritable bowel syndrome 018 documented as of this encounter (statuses as of 05/27/2022) [facility] History of Past illness Narrative* Problem Noted Date Resolved Date Segmental and somatic dysfunction of pelvic corby on 10/24/2017 10/25/2017 Elevated liver function tests 06/04/2016 Alcohol use 06/03/2016 02/14/2017 Enterocolitis due to Clostridium difficile 05/1806/03/2016 Radiculopathy, lumbar region 05/13/2015 Midline thoracic back pain 11/18/201406/04 Daytime hypersomnolence 01/09/2013 10/26/19 18 Depression 12/09/2010 10/25/2017 Onychia and paronychia of toe 11/30/2010 Supraspinatus tendonitis 11/10/2008 017 Medial epicondylitis of elbow 05/04/2008 EXANTHEM////NONSPECIF SKIN ERUPT NEC 12/09/2007 06/04/2016 Cough 07/23/2006 06/04/2016 Tobacco use disorder 05/17/2006 04/09/2018 Irritable bowel syndrome 018 documented as of this encounter (statuses as of 05/30/2022) [facility] History of Past illness Narrative* Problem Noted Date Resolved Date Segmental and somatic dysfunction of pelvic corby on 10/24/2017 10/25/2017 Elevated liver function tests 06/04/2016 Alcohol use 06/03/2016 02/14/2017 Enterocolitis due to Clostridium difficile 05/1806/03/2016 Radiculopathy, lumbar region 05/13/2015 Midline thoracic back pain 11/18/201406/04 Daytime hypersomnolence 01/09/2013 10/26/19 18 Depression 12/09/2010 10/25/2017 Onychia and paronychia of toe 11/30/2010 Supraspinatus tendonitis 11/10/2008 017 Medial epicondylitis of elbow 05/04/2008 EXANTHEM////NONSPECIF SKIN ERUPT NEC 12/09/2007 06/04/2016 Cough 07/23/2006 06/04/2016 Tobacco use disorder 05/17/2006 04/09/2018 Irritable bowel syndrome 018 documented as of this encounter (statuses as of 06/27/2022) [facility] History of Past illness Narrative* Problem Noted Date Resolved Date Segmental and somatic dysfunction of pelvic corby on 10/24/2017 10/25/2017 Elevated liver function tests 06/04/2016 Alcohol use 06/03/2016 02/14/2017 Enterocolitis due to Clostridium difficile 05/1806/03/2016 Radiculopathy, lumbar region 05/13/2015 Midline thoracic back pain 11/18/201406/04 Daytime hypersomnolence 01/09/2013 10/26/19 18 Depression 12/09/2010 10/25/2017 Onychia and paronychia of toe 11/30/2010 Supraspinatus tendonitis 11/10/2008 017 Medial epicondylitis of elbow 05/04/2008 EXANTHEM////NONSPECIF SKIN ERUPT NEC 12/09/2007 06/04/2016 Cough 07/23/2006 06/04/2016 Tobacco use disorder 05/17/2006 04/09/2018 Irritable bowel syndrome 018 documented as of this encounter (statuses as of 06/29/2022) [facility] History of Past illness Narrative* Problem Noted Date Resolved Date Segmental and somatic dysfunction of pelvic corby on 10/24/2017 10/25/2017 Elevated liver function tests 06/04/2016 Alcohol use 06/03/2016 02/14/2017 Enterocolitis due to Clostridium difficile 05/1806/03/2016 Radiculopathy, lumbar region 05/13/2015 Midline thoracic back pain 11/18/201406/04 Daytime hypersomnolence 01/09/2013 10/26/19 18 Depression 12/09/2010 10/25/2017 Onychia and paronychia of toe 11/30/2010 Supraspinatus tendonitis 11/10/2008 017 Medial epicondylitis of elbow 05/04/2008 EXANTHEM////NONSPECIF SKIN ERUPT NEC 12/09/2007 06/04/2016 Cough 07/23/2006 06/04/2016 Tobacco use disorder 05/17/2006 04/09/2018 Irritable bowel syndrome 018 documented as of this encounter (statuses as of 07/03/2022) [facility] History of Past illness Narrative* Problem Noted Date Resolved Date Segmental and somatic dysfunction of pelvic corby on 10/24/2017 10/25/2017 Elevated liver function tests 06/04/2016 Alcohol use 06/03/2016 02/14/2017 Enterocolitis due to Clostridium difficile 05/1806/03/2016 Radiculopathy, lumbar region 05/13/2015 Midline thoracic back pain 11/18/201406/04 Daytime hypersomnolence 01/09/2013 10/26/19 18 Depression 12/09/2010 10/25/2017 Onychia and paronychia of toe 11/30/2010 Supraspinatus tendonitis 11/10/2008 017 Medial epicondylitis of elbow 05/04/2008 EXANTHEM////NONSPECIF SKIN ERUPT NEC 12/09/2007 06/04/2016 Cough 07/23/2006 06/04/2016 Tobacco use disorder 05/17/2006 04/09/2018 Irritable bowel syndrome 018 documented as of this encounter (statuses as of 09/05/2022) [facility] History of Past illness Narrative* Problem Noted Date Diagnosed Date Resolved Date Segmental and somatic dysfun ction of pelvic region 10/24/2017 10/25/2017 Elevated liver function tests 06/04/2016 08/22/2016 Alcohol use 06/03/2016 02/14/2017 Enterocolitis due to Clostridium difficile 05/19/2015 06/03/2016 Radiculopathy, lumbar region 05/13/2015 06/04/2016 Midline thoracic back pain 11/18/2014 0 06/04/2016 Daytime hypersomnolence 01/09/2013 08/0 11/2017 Depression 12/09/2010 10/25/2017 Onychia and paronychia of toe 11/30/2010 06/04/2016 Supraspinatus tendonitis 11/10/2008 Medial epicondylitis of elbow 05/04/2008 06/04/2016 EXANTHEM////NONSPECIF SKIN ERUPT NEC 12/09/2007 06/04/2016 Cough 07/23/2006 06/04/2016 Tobacco use disorder 05/17/2006 019 Irritable bowel syndrome 11/2017 documented as of this encounter (statuses as of 10/04/2022) [facility]08-[facility] History of Past illness Narrative* Problem Noted Date Diagnosed Date Resolved Date Segmental and somatic dysfun ction of pelvic region 10/24/2017 10/25/2017 Elevated liver function tests 06/04/2016 08/22/2016 Alcohol use 06/03/2016 02/14/2017 Enterocolitis due to Clostridium difficile 05/19/2015 06/03/2016 Radiculopathy, lumbar region 05/13/2015 06/04/2016 Midline thoracic back pain 11/18/2014 0 06/04/2016 Daytime hypersomnolence 01/09/2013 08/0 11/2017 Depression 12/09/2010 10/25/2017 Onychia and paronychia of toe 11/30/2010 06/04/2016 Supraspinatus tendonitis 11/10/2008 Medial epicondylitis of elbow 05/04/2008 06/04/2016 EXANTHEM////NONSPECIF SKIN ERUPT NEC 12/09/2007 06/04/2016 Cough 07/23/2006 06/04/2016 Tobacco use disorder 05/17/2006 019 Irritable bowel syndrome 11/2017 documented as of this encounter (statuses as of 12/23/2022) [facility] Diagnosis Seasonal allergies- Primary Allergic rhinitis, cause unspecified documented [facility] this [facility]* Diagnosis Lumbar back pain- Primary Lumbago documented [facility] this [facility]* Diagnosis Heartburn Psoriasis Other psoriasis documented [facility] this [facility]* Diagnosis Left ear pain- Primary Otalgia, unspecified RLQ abdominal pain Abdominal pain, right lower quadrant documented [facility] this [facility]* Diagnosis Mid back pain- Primary Backache, unspecified documented [facility] this [facility]* Diagnosis Acute bilateral thoracic back pain- Primary documented [facility] this [facility]* Diagnosis Well adult exam- Primary Routine general medical examination at a health care facility Mixed hyperlipidemia GERD without esophagitis Esophageal reflux Mild intermittent asthma without complication Unspecified asthma TOÑO (generalized anxiety disorder) Generalized anxiety disorder Vitamin D deficiency Unspecified vitamin D deficiency Chews tobacco Tobacco use disorder Primary osteoarthritis of both knees Primary localized osteoarthrosis, lower leg Encounter for screening for diabetes mellitus Screening for diabetes mellitus Medication management Encounter for long-term (current) use of other medications Screening for prostate cancer Special screening for malignant neoplasm of prostate documented [facility] this [facility]* Diagnosis Sinobronchitis- Primary Unspecified sinusitis (chronic) documented [facility] this [facility]* Diagnosis Bronchitis- Primary Bronchitis, not specified as acute or chronic documented [facility] this [facility]* Diagnosis Heartburn documented in this encounter [facility] for referral (narrative)* Diagnostic Procedure Only (Routine) - Closed Specialty Diagnoses / Procedures Referred By Contac t Referred To Contact XR IMAGING Diagnoses Lumbar back pain Procedures XR LUMBAR GENERAL 3V AP/LAT/L5-S1 RADEX SPINE LUMBOSACRAL 2/3 VIEWS Beatriz Pratt APRN.CNP [address] [place] [address] Xr Imaging Referral ID Status Reason Start Date Expiration Date V isits Requested Visits Authorized [id number] Closed Auto-Generate d Referral 07/12/2021 08/11/[address] [facility] Diagnostic Procedure Only (Urgent) - Closed Specialty Diagnoses / Procedures Referred By Contac t Referred To Contact XR IMAGING Diagnoses Mid back pain Procedures XR THORACIC GENERAL 3V AP/LAT/SWIMMERS RADEX SPINE THORACIC 3 VIEWS Meliton Nielsen PA-C [address] [place] [address] Xr Imaging Referral ID Status Reason Start Date Expiration Date V isits Requested Visits Authorized [id number] Closed Auto-Generate d Referral 03/06/2022 04/05/2023 1 1 [facility] Advance Directives No Advanced Directives Records FoundDocuments on File Type Date Recorded Patient Office Clinician Expl anation Advance Directive(s) 04/10/2019 8:03 AM Advance Directive(s) 03/27/2019 4:08 PM Advance Directive(s) 02/18/2019 7:34 AM Advance Directive(s) 02/11/2019 4:41 PM Documents on File Type Date Recorded Patient Office Clinician Expl anation Advance Directive(s) 04/10/2019 8:03 AM Advance Directive(s) 03/27/2019 4:08 PM Advance Directive(s) 02/18/2019 7:34 AM Advance Directive(s) 02/11/2019 4:41 PM Summary Purpose Family History No Family History Records Found Additional Source Comments Source Comments (unrecognize d section and content) In the event this informatio n is protected by the Federal Confidentiality of Alcohol and Drug Abuse Patient Records regulations: The Federal rules restrict any use of the information to criminally investigate or prosecute any alcohol or drug abuse patient.[facility] the event this information is protected by the Federal Confidentiality of Alcohol and Drug Abuse Patient Records regulations: The Federal rules restrict any use of the information to criminally investigate or prosecute any alcohol or drug abuse patient.[facility] the event this information is protected by the Federal Confidentiality of Alcohol and Drug Abuse Patient Records regulations: The Federal rules restrict any use of the information to criminally investigate or prosecute any alcohol or drug abuse patient.[facility] the event this information is protected by the Federal Confidentiality of Alcohol and Drug Abuse Patient Records regulations: The Federal rules restrict any use of the information to criminally investigate or prosecute any alcohol or drug abuse patient.[facility] the event this information is protected by the Federal Confidentiality of Alcohol and Drug Abuse Patient Records regulations: The Federal rules restrict any use of the information to criminally investigate or prosecute any alcohol or drug abuse patient.[facility] the event this information is protected by the Federal Confidentiality of Alcohol and Drug Abuse Patient Records regulations: The Federal rules restrict any use of the information to criminally investigate or prosecute any alcohol or drug abuse patient.[facility] the event this information is protected by the Federal Confidentiality of Alcohol and Drug Abuse Patient Records regulations: The Federal rules restrict any use of the information to criminally investigate or prosecute any alcohol or drug abuse patient.[facility] the event this information is protected by the Federal Confidentiality of Alcohol and Drug Abuse Patient Records regulations: The Federal rules restrict any use of the information to criminally investigate or prosecute any alcohol or drug abuse patient.[facility] the event this information is protected by the Federal Confidentiality of Alcohol and Drug Abuse Patient Records regulations: The Federal rules restrict any use of the information to criminally investigate or prosecute any alcohol or drug abuse patient.[facility] the event this information is protected by the Federal Confidentiality of Alcohol and Drug Abuse Patient Records regulations: The Federal rules restrict any use of the information to criminally investigate or prosecute any alcohol or drug abuse patient.[facility] the event this information is protected by the Federal Confidentiality of Alcohol and Drug Abuse Patient Records regulations: The Federal rules restrict any use of the information to criminally investigate or prosecute any alcohol or drug abuse patient.[facility] the event this information is protected by the Federal Confidentiality of Alcohol and Drug Abuse Patient Records regulations: The Federal rules restrict any use of the information to criminally investigate or prosecute any alcohol or drug abuse patient.[facility] the event this information is protected by the Federal Confidentiality of Alcohol and Drug Abuse Patient Records regulations: The Federal rules restrict any use of the information to criminally investigate or prosecute any alcohol or drug abuse patient.[facility] the event this information is protected by the Federal Confidentiality of Alcohol and Drug Abuse Patient Records regulations: The Federal rules restrict any use of the information to criminally investigate or prosecute any alcohol or drug abuse patient.[facility] the event this information is protected by the Federal Confidentiality of Alcohol and Drug Abuse Patient Records regulations: The Federal rules restrict any use of the information to criminally investigate or prosecute any alcohol or drug abuse patient.[facility] Reason for Visit (unrecogniz ed section and content) Reason Comments Back Pain lower back x2 days; lifting injury Reason Comments Results Reason Onset Date Comments Refill Request 08/24/2021 Reason Comments Groin Pain X3-4 days Reason Comments Back Pain Lower mid back x [address] Reason Comments Back Pain x 3 weeks, seen 02/16 9 same symptoms Reason Comments Physical Reason Comments Results, Lab Reason Comments Head Congestion chest congestion, co ugh and restless x 1 week Reason Comments Recheck Was seen in Urgent C are for sinobronchitis Reason Comments Refill Request Reason Comments Outside [id number] Ordered Reason Comments Medication Problem Care Teams (unrecognized sec tion and content) Supplier Relationship Director Relationship Specialty Start Date End Date Sheridan Allen MD [address] [facility] [place] [address] PCP - General Family Practice 11/09/20 Wayne Victoria [facility] [address] [place] [address] Gastroenterology 01/26/20 Supplier Relationship Director Relationship Specialty Start Date End Date Sheridan Allen MD [address] [facility] [place] [place] [address] PCP - General Family Practice 11/09/20 Wayne Victoria [facility] [address] [place] [address] Gastroenterology 01/26/20 Supplier Relationship Director Relationship Specialty Start Date End Date Sheridan Allen MD [address] [facility] [place] [address] PCP - General Family Medicine 11/09/20 Wayne Victoria [facility] [address] [place] [address] Gastroenterology 01/26/20 Supplier Relationship Director Relationship Specialty Start Date End Date Sheridan Allen MD [address] [facility] [place] [place] [address] PCP - General Family Medicine 11/09/20 Wayne Victoria [address] [facility] [address] [place] [address] Gastroenterology 01/26/20 Supplier Relationship Director Relationship Specialty Start Date End Date Sheridan Allen MD [address] [facility] [place] [address] PCP - General Family Medicine 11/09/20 Wayne Victoria [address] [facility] [address] [place] [address] Gastroenterology 01/26/20 Supplier Relationship Director Relationship Specialty Start Date End Date Sheridan Allen MD [address] [facility] [place] [address] PCP - General Family Medicine 11/09/20 Wayne Victoria [address] [facility] [address] [place] [address] Gastroenterology 01/26/20 Supplier Relationship Director Relationship Specialty Start Date End Date Sheridan Allen MD [address] [facility] [place] [place] [address] PCP - General Family Medicine 11/09/20 Wayne Victoria [address] [facility] [address] Gastroenterology 01/26/20 Supplier Relationship Director Relationship Specialty Start Date End Date Sheridan Allen MD [address] [facility] [place] [place] [address] PCP - General Family Medicine 11/09/20 Wayne Victoria [address] [facility] [address] Gastroenterology 01/26/20 Supplier Relationship Director Relationship Specialty Start Date End Date Sheridan Allen MD [address] [facility] [place] [address] PCP - General Family Medicine 11/09/20 Wayne Victoria [facility] [address] [place] [address] Gastroenterology 01/26/20 Supplier Relationship Director Relationship Specialty Start Date End Date Sheridan Allen MD [address] [facility] [place], [place] [address] PCP - General Family Medicine 11/09/20 Wayne Victoria [address] [facility] [address] [place], [place] [address] Gastroenterology 01/26/20 Supplier Relationship Director Relationship Specialty Start Date End Date Sheridan Allen MD [address] [facility] [place], [place] [address] PCP - General Family Medicine 11/09/20 Wayne Victoria [address] [facility] [address] [place], [place] [address] Gastroenterology 01/26/20 Supplier Relationship Director Relationship Specialty Start Date End Date Sheridan Allen MD [address] [facility] [place], [place] [address] PCP - General Family Medicine 11/09/20 Wayne Victoria MD [address] [facility] [address] [place], [place] [address] Gastroenterology 01/26/20 (unrecognized sect ion and content) No Status Records Found INFORMATION SOURCE (unrecogn ized section and content) FOR RECORDS PERTAINING TO PATIENTS WHO ARE OR HAVE BEEN ENROLLED IN A CHEMICAL DEPENDENCY/SUBSTANCEABUSE PROGRAM, SOME INFORMATION MAY BE OMITTED. This clinical summary was aggregated from multiple sources. Caution should be exercised in using it in the provision of clinical care. This summary normalizes information from multiple sources, and as a consequence, information in this document may materially change the coding, format and clinical context of patient data. In addition, data may be omitted in some cases. CLINICAL DECISIONS SHOULD BE BASED ON THE PRIMARY CLINICAL RECORDS. [employer] [facility]. provides no warranty or guarantee of the accuracy or completeness of information in this document.
[2023-04-04 17:03] LABS: Absolute Lymphocyte Count 1.83 X10^3/uL (0.83-4.51); Absolute Neutrophil Count 2.8 X10^3/uL (2.0-7.7); Basophil# 0.06 X10^3/uL; Basophil% 1.1 % (0-1); Eosinophil# 0.19 X10^3/uL; Eosinophils% 3.4 % (0-5); Hematocrit 43.2 % (40-54); Hemoglobin 14.4 g/dL (13.0-16.5); Lymphocyte # 1.83 X10^3/ul (0.83-4.51); Lymphocyte % 32.7 % (19-41); Mean Corp Hgb Conc 33.3 g/dL (32-36); Mean Corpuscular Hgb 31.4 pg (27.0-32.0); Mean Corpuscular Volume 94.3 fL (80-94); Mean Platelet Vol. 9.7 fl (6.2-12.0); Monocyte# 0.67 X10^3/uL; NRBC Flagged by Analyzer 0 % (0-5); Neutrophil # 2.81 X10^3/uL (2.7-7.7); Neutrophil % 50.3 % (47-70); Platelet Count 231 K/mm3 (150-450); RBC Distribution Width CV 12.5 % (11.6-14.6); RBC Distribution Width SD 43.4 fl (35.1-43.9); Red Blood Count 4.58 M/mm3 (4.6-6.2); White Blood Count 5.6 K/mm3 (4.4-11.0)
[2023-04-04 17:28] LABS: Erythrocyte Sedimentation Rate 8 mm/hr (0-20)
[2023-04-04 17:47] LABS: ALB/GLOB Ratio 1.2 RATIO (0.9-2.4); AST(SGOT) 29 U/L (15-37); Alanine Aminotransfer ALT/SGPT 25 U/L (16-61); Albumin, Serum 3.8 g/dL (3.2-5.0); Alkaline Phosphatase 76 U/L (45-117); Anion Gap 3 (5-15); BUN 15 mg/dL (7-18); CRP 9.19 mg/L (0.0-3.0); Calcium,Total 8.7 mg/dL (8.5-10.1); Chloride 111 mmol/L (98-107); Creatinine, Serum 1.07 mg/dL (0.70-1.30); EST Glomerular Filtration Rate 76 mL/min (>60); Est Glom Filt Rate - Afr Amer 92 mL/min (>60); Globulin 3.2 g/dL (2.2-4.2); Glucose 95 mg/dL (74-106); Potassium 4.4 mmol/L (3.5-5.1); Sodium Level 141 mmol/L (136-145)
== END | disposition home or self-care (01) ==
LOC: LAB 15:53
PROVIDERS: PCP Family Medicine; Referring Provider Internal Medicine Gastroenterology; Visit Provider Internal Medicine Gastroenterology
DX: K50.018 Crohn's disease of small intestine with other complication (principal)
CPT/HCPCS: 36415; 80053; 85025; 85652; 86140

== ENCOUNTER → 2023-04-05 | Outpatient (CLI) | payer OTHER, SELFPAY ==
--- OUTSIDE RECORDS SUMMARY | 2023-04-05 06:41 | XMS RPT_ITS | CCD ---
Author Name Unknown Address [address] [place] [address] Organization [facility] Care Team Providers Care Box Stacker Name Role Phone Wayne Victoria Unavailable Sheridan Allen MD Primary Care Provider HERNÁN LA Referring Unavailable SHERIDAN ALLEN Primary [...] Translations: [ERYTHROMYCIN] Drug Allergy 6 GI Upset [facility] Work Phone: (15 sources) Environmental allergies [Other] Propensity to adverse reactions 7 Unknown [facility] Work Phone: (1 source) OTHER; Translations: [OTHER] Propensity to adverse reactions (disorder) 7 [facility] Repository Medications Current Medications Medication Drug [...] Drug Class(es) Dates Sig (Normalized) Sig (Original) [id number] actuat albuterol 0.09 mg/actuat metered dose [...] (20 sources) Patient encounter status; Translations: [Other intermediate designer (current) drug therapy] Onset: 11-09-2020 11-09-2020 Episodic Other aftercare (1 source) Other intermediate designer (current) drug therapy; Translations: [Medication management] Onset: [...] temperature 97.39 [degF] Hernán DAVEY-C Work Phone: [facility] 07-03-2022 12:02-0400 Body weight 82.56 kg Hernán La PA-C Work Phone: [facility] 07-03-2022 12:02-0400 Diastolic blood pressure 78 mm[Hg] Hernán La PA-C Work Phone: [facility] 07-03-2022 12:02-0400 Heart rate 78 /min Hernán DAVEY-C Work Phone: [facility] 07-03-2022 12:02-0400 Respiratory rate 18 /min Hernán La PA-C Work Phone: [facility] 07-03-2022 12:02-0400 SaO2% (BldA) [Mass fraction] 99 % Hernán DAVEY-C Work Phone: [facility] 07-03-2022 12:02-0400 Systolic blood pressure 120 mm[Hg] Hernán La PA-C Work Phone: [facility] 06-28-2022 16:27-0400 Body temperature 98.2 [degF] Dimitry Umanzor FAIRING MAN.PICKLING MACHINE OPERATOR Work Phone: [facility] 06-28-2022 16:27-0400 Body weight 81.65 kg Dimitry Umanzor FAIRING MAN.PICKLING MACHINE OPERATOR Work Phone: [facility] 06-28-2022 16:27-0400 Diastolic blood pressure 84 mm[Hg] Dimitry Umanzor FAIRING MAN.PICKLING MACHINE OPERATOR Work Phone: [facility] 06-28-2022 16:27-0400 Heart rate 92 /min Dimitry Umanzor FAIRING MAN.PICKLING MACHINE OPERATOR Work Phone: [facility] 06-28-2022 16:27-0400 Respiratory rate 16 /min Dimitry Umanzor FAIRING MAN.PICKLING MACHINE OPERATOR Work Phone: [facility] 06-28-2022 16:27-0400 SaO2% (BldA) [Mass fraction] 97 % Dimitry Noé FAIRING MAN.PICKLING MACHINE OPERATOR Work Phone: [facility] 06-28-2022 16:27-0400 Systolic blood pressure 138 mm[Hg] Dimitry FAIRING MAN.PICKLING MACHINE OPERATOR Work Phone: [facility] 05-26-2022 14:55-0500 Body height 167.6 cm Sheridan Allen MD Work Phone: [facility] 05-26-2022 14:55-0500 Body temperature 98.1 [degF] Sheridan Allen MD Work Phone: [facility] 05-26-2022 14:55-0500 Body weight 78.93 kg Sheridan Allen MD Work Phone: [facility] 05-26-2022 14:55-0500 Diastolic blood pressure 86 mm[Hg] Sheridan Allen MD Work Phone: [facility] 05-26-2022 14:55-0500 Heart rate 82 /min Sheridan Allen MD Work Phone: [facility] 05-26-2022 14:55-0500 Respiratory rate 16 /min Sheridan Allen MD Work Phone: [facility] 05-26-2022 14:55-0500 Systolic blood pressure 136 mm[Hg] Sheridan Allen MD Work Phone: [facility] 03-21-2022 16:29-0500 Body temperature 97.81 [degF] Susan Rowan FAIRING MAN.PICKLING MACHINE OPERATOR Work Phone: [facility] 03-21-2022 16:29-0500 Body weight 82.56 kg Susan Rowan FAIRING MAN.PICKLING MACHINE OPERATOR Work Phone: [facility] 03-21-2022 16:29-0500 Diastolic blood pressure 80 mm[Hg] Susan Rowan FAIRING MAN.PICKLING MACHINE OPERATOR Work Phone: [facility] 03-21-2022 16:29-0500 Heart rate 96 /min Susan Rowan FAIRING MAN.PICKLING MACHINE OPERATOR Work Phone: [facility] 03-21-2022 16:29-0500 Respiratory rate 16 /min Susan Rowan FAIRING MAN.PICKLING MACHINE OPERATOR Work Phone: [facility] 03-21-2022 16:29-0500 SaO2% (BldA) [Mass fraction] 98 % Susan Rowan FAIRING MAN.PICKLING MACHINE OPERATOR Work Phone: [facility] 03-21-2022 16:29-0500 Systolic blood pressure 128 mm[Hg] Susan Rowan FAIRING MAN.PICKLING MACHINE OPERATOR Work Phone: [facility] 03-06-2022 16:14-0500 Body temperature 97.2 [degF] Meliton Athy PA-C Work Phone: [facility] 03-06-2022 16:14-0500 Body weight 83.19 kg Meliton Athy PA-C Work Phone: [facility] 03-06-2022 16:14-0500 Diastolic blood pressure 84 mm[Hg] Meliton Athy PA-C Work Phone: [facility] 03-06-2022 16:14-0500 Heart rate 80 /min Meliton Athy PA-C Work Phone: [facility] 03-06-2022 16:14-0500 Respiratory rate 21 /min Meliton Athy PA-C Work Phone: [facility] 03-06-2022 16:14-0500 SaO2% (BldA) [Mass fraction] 98 % Meliton Athy PA-C Work Phone: [facility] 03-06-2022 16:14-0500 Systolic blood pressure 138 mm[Hg] Meliton Athy PA-C Work Phone: [facility] 11-12-2021 12:03-0400 Body temperature 97.9 [degF] Sheridan Allen MD Work Phone: [facility] 11-12-2021 12:03-0400 Body weight 77.11 kg Sheridan Allen MD Work Phone: [facility] 11-12-2021 12:03-0400 Diastolic blood pressure 76 mm[Hg] Sheridan Allen MD Work Phone: [facility] 11-12-2021 12:03-0400 Heart rate 64 /min Sheridan Allen MD Work Phone: [facility] 11-12-2021 12:03-0400 Respiratory rate 16 /min Sheridan Allen MD Work Phone: [facility] 11-12-2021 12:03-0400 Systolic blood pressure 102 mm[Hg] Sheridan Allen MD Work Phone: [facility] 07-12-2021 09:31-0400 Body weight 79.11 kg Beatriz Podlogar FAIRING MAN.PICKLING MACHINE OPERATOR Work Phone: [facility] 07-12-2021 09:31-0400 Diastolic blood pressure 82 mm[Hg] Beatriz Podlogar FAIRING MAN.PICKLING MACHINE OPERATOR Work Phone: [facility] 07-12-2021 09:31-0400 Heart rate 70 /min Beatriz Podlogar FAIRING MAN.PICKLING MACHINE OPERATOR Work Phone: [facility] 07-12-2021 09:31-0400 Respiratory rate 18 /min Beatriz Podlogar FAIRING MAN.PICKLING MACHINE OPERATOR Work Phone: [facility] 07-12-2021 09:31-0400 SaO2% (BldA) [Mass fraction] 99 % Beatriz Podlogar FAIRING MAN.PICKLING MACHINE OPERATOR Work Phone: [facility] 07-12-2021 09:31-0400 Systolic blood pressure 136 mm[Hg] Beatriz Podlogar FAIRING MAN.PICKLING MACHINE OPERATOR Work Phone: [facility] 06-27-2021 09:30-0400 Body weight 77.11 kg Tisha Hernandez FAIRING MAN.PICKLING MACHINE OPERATOR Work Phone: [facility] 06-27-2021 09:30-0400 Diastolic blood pressure 80 mm[Hg] Tisha Hernandez FAIRING MAN.PICKLING MACHINE OPERATOR Work Phone: [facility] 06-27-2021 09:30-0400 Heart rate 86 /min Tisha Hernandez FAIRING MAN.PICKLING MACHINE OPERATOR Work Phone: [facility] 06-27-2021 09:30-0400 Respiratory rate 16 /min Tisha Hernandez FAIRING MAN.PICKLING MACHINE OPERATOR Work Phone: [facility] 06-27-2021 09:30-0400 SaO2% (BldA) [Mass fraction] 97 % Tisha Hernandez FAIRING MAN.PICKLING MACHINE OPERATOR Work Phone: [facility] 06-27-2021 09:30-0400 Systolic blood pressure 122 mm[Hg] Tisha Hernandez FAIRING MAN.PICKLING MACHINE OPERATOR Work Phone: [facility] Encounters Encounter Date Encounter Type Care Provider Facility Start: 12-21-2022 End: 12-21-2022 [facility] Honorio [facility] Facility:[facility] Start: 12-21-2022 Telephone encounter Susan delgado FAIRING MAN.PICKLING MACHINE OPERATOR Work Phone: [facility] Procedures Date Procedure Procedure Detail Performing Clinician Start: 05-26-2022 Lipid 1996 panel - S leon or Plasma Susan Rowan FAIRING MAN.RAJIV Work Phone: Start: 03-21-2022 Urnls dip stick/tabl et rgnt auto w/o microscopy Susan Rowan FAIRING MAN.RAJIV Work Phone: Start: 04-10-2019 Whit ashraf FAIRING MAN.PICKLING MACHINE OPERATOR Work Phone: Plan of Treatment Date Care Activity Detail Author Start: 08-19-2031 PNEUMOCOCCAL (3 - PP SV23 if available, else PCV20) PNEUMOCOCCAL (3 - PPSV23 if available, else PCV20) [facility] Start: 08-19-2031 PNEUMOCOCCAL (3 - PP SV23 or PCV20) PNEUMOCOCCAL (3 - PPSV23 or PCV20) [facility] Start: 08-19-2031 Pneumococcal vaccination Pneum ococcal Vaccine (3 - PPSV23 or PCV20) [facility] Start: 11-09-2030 Urine microalbumin profile [facility] Start: 04-10-2029 Colonoscopy COLONOSCOPY [facility] Start: 04-10-2029 COLORECTAL CANCER SCREENING COLORECTAL CANCER SCREENING [facility] Start: 05-27-2027 Lipid 1996 panel - S leon or Plasma Lipid Screening [facility] Start: 05-27-2027 LIPID SCREEN LIPID SCREEN [facility] Start: 05-27-2027 PROSTATE CANCER SCRE ENING DISCUSSION PROSTATE CANCER SCREENING DISCUSSION [facility] Start: 11-09-2025 LIPID SCREEN LIPID SCREEN [facility] Start: 05-26-2025 DIABETES SCREEN DIABETES SCREEN [facility] Start: 05-26-2025 Diabetes Screening Diabetes Screenin g [facility] Start: 11-10-2023 DIABETES SCREEN DIABETES SCREEN [facility] Start: 07-04-2023 ANNUAL PCP TEAM SENIOR INSTRUCTIONAL DESIGNER USMAN DISEASE VISIT ANNUAL PCP TEAM CHRONIC DISEASE VISIT [facility] Start: 05-27-2023 ANNUAL PCP TEAM SENIOR INSTRUCTIONAL DESIGNER USMAN DISEASE VISIT ANNUAL PCP TEAM CHRONIC DISEASE VISIT [facility] Start: 05-27-2023 COVID-19 VACCINE (3 - Booster for Pfizer series) COVID-19 VACCINE (3 - Booster for Pfizer series) [facility] Immunizations Immunization Date Immunization Notes Care Provider Fa hayleety 11-09-2020 tetanus toxoid, redu mega diphtheria toxoid, and acellular pertussis vaccine, adsorbed Tisha Tannhof FAIRING MAN.PICKLING MACHINE OPERATOR Work Phone: [facility] 01-24-2020 influenza, injectabl e, quadrivalent, contains preservative Tisha Tannhof FAIRING MAN.PICKLING MACHINE OPERATOR Work Phone: [facility] 01-24-2020 influenza virus vacc ine, unspecified formulation Susan Rowan FAIRING MAN.PICKLING MACHINE OPERATOR Work Phone: [facility] 10-09-2018 pneumococcal conjuga te vaccine, 13 valent Sheridan Allen MD Work Phone: [facility] 01-25-2018 influenza, injectabl e, quadrivalent, contains preservative Tisha Tannhof FAIRING MAN.PICKLING MACHINE OPERATOR Work Phone: [facility] Work Phone: 10-25-2017 pneumococcal polysaccharide vaccine, 23 valent Tisha Tannhof FAIRING MAN.PICKLING MACHINE OPERATOR Work Phone: [facility] 01-01-2017 influenza, injectabl e, quadrivalent, contains preservative Tisha Tannhof FAIRING MAN.[facility] Work Phone: [facility] 02-18-2016 influenza, injectabl e, quadrivalent, contains preservative Tisha Tannhof FAIRING MAN.PICKLING MACHINE OPERATOR Work Phone: [facility] 01-19-2015 influenza, injectabl e, quadrivalent, contains preservative Tisha Tannhof FAIRING MAN.PICKLING MACHINE OPERATOR Work Phone: [facility] 03-26-2013 influenza virus vacc ine, unspecified formulation Tisha Tannhof FAIRING MAN.PICKLING MACHINE OPERATOR Work Phone: [facility] 02-13-2012 influenza virus vacc ine, unspecified formulation Tisha Tannhof FAIRING MAN.PICKLING MACHINE OPERATOR Work Phone: [facility] 03-10-2009 novel influenza-H1N1 -09, preservative-free, injectable Tisha Tannhof FAIRING MAN.PICKLING MACHINE OPERATOR Work Phone: [facility] 12-28-2008 influenza virus vacc ine, unspecified formulation Tisha Tannhof FAIRING MAN.PICKLING MACHINE OPERATOR Work Phone: [facility] 10-14-2007 tetanus toxoid, redu mega diphtheria toxoid, and acellular pertussis vaccine, adsorbed Tisha Tannhof FAIRING MAN.[facility] Work Phone: [facility] Work Phone: Payers Date Payer Category Payer Private Health Insurance [facility] CHOICE PLUS [id number] 2019-Present [phone] [address] [place] [id number] [facility] [id number] 2019 Private Health Insurance [facility] CHOICE PLUS [id number] 2019-Present [phone] [place] [id number] [facility] [id number] 2019 Unknown [id number] Social History Date Type Detail Facility Start: 02-18-2016 End: 11-12-2021 Tobacco smoking status NHIS Ex-smoker [facility] End: 01-19-2016 History of tobacco use Current smoker [facility] End: 01-19-2016 History of tobacco use Cigarette Smoker [facility] Start: 02-18-2016 End: 12-11-2022 Cigarettes smoked current (pack per day) - Reported 0.3 [facility] Work Phone: Start: 02-18-2016 End: 11-12-2021 Tobacco use and exposure User of smokeless tobacco [facility] History of tobacco use Chews Tobacco [facility] Start: 06-27-2021 End: 12-21-2022 Alcohol intake Current drinker of alcohol (finding) [facility] Start: 04-10-2019 History SDOH Alcohol Comment socially [facility] Start: 1965 Sex Assigned At Male C [facility] Start: 06-17-2021 End: 07-12-2021 Exposure to SARS-CoV-2 (event) Not sure [facility] Work Phone: Start: 11-02-2021 End: 11-12-2021 Exposure to SARS-CoV-2 (event) Yes [facility] Start: 07-03-2022 End: 12-11-2022 Tobacco use panel [facility] Work Phone: Adult Depression Screening Assessment 0 [facility] Work Phone: Start: 04-04-2019 Gender identity Identifies as male gender (finding) [facility] Clinical Notes 10-24-2017 to 12-21-2022 Telephone Encounter - Susan Rowan APRN.CNP - 12/21/2022 4:19 PM EDTTelephone Encounter - Alka Alegria RN - 12/21/2022 3:59 PM Oxana Luis LPN - 10/04/2022 8:42 AM EDTPatient Instructions Note Date & Type Note Facility 12-21-2022 Note HNO ID: [id number] Author: Susan Rowan APRN.CNP Service: ? Author [...] Has used heating pad. Works at a [employer] Denies heavy lifting. Denies sx, IV drug, saddle anesthesia. States he has had history of back pain in past. The history is provided by the patient. No foreign language interpreter was used. Back Pain This is a [...] pain. Musculoskeletal: Positive (more content not included)... [facility] 12-21-2022 Miscellaneous Notes RX called in. Patient calls and states that medication should have been sent to [facility] pharmacy. Asking if provider can send it there? Please review and advise, Alka Alegria RN documented in this encounter [facility] 10-04-2022 Note HNO ID: [id number] Author: Oxana Zuniga LPN Service: ? Author Type: ? Type: Progress Notes Filed: 10/04/2022 8:42 AM Note Text: Scan on 10/03/2022 10:37 AM by Esha Chaudhry PA-C: Miscellaneous Lab Scan on 10/03/2022 9:45 AM by Esha Chaudhry PA-C: Miscellaneous Lab [facility] 10-04-2022 History of Presen t illness Narrative Scan on 10/03/2022 10:37 AM by Esha Chaudhry PA-C: Miscellaneous Lab Scan on 10/03/2022 9:45 AM by Esha Chaudhry PA-C: Miscellaneous Lab documented in this encounter [facility] 09-04-2022 Miscellaneous Notes The following approved medication [...] Sheridan Allen MD documented in this encounter [facility] 07-03-2022 Note HNO ID: [id number] Author: RT Chelsey(R) Service: Nuclear Medicine Author [...] RT Chelsey(R) July 03, 2022 12:30 PM [facility] 07-03-2022 Note HNO ID: [id number] Author: Hernán La PA-C Service: ? Author Type: Physician Painter Hand Type: Progress Notes Filed: 07/03/2022 12:42 PM [...] Discontinued SPIROMETRY Di (more content not included)... [facility] 07-03-2022 History of Presen t illness [...] Hernán La PA-C documented in this encounter [facility] 06-28-2022 Note HNO ID: [id number] Author: Dimitry Umanzor APRN.PICKLING MACHINE OPERATOR Service: ? Author Type: Nurse Practitioner Type: [...] PROPIONATE 50 MCG/ACTUATION NASAL SPRAY,SUSPENSION Dimitry Umanzor APRN.PICKLING MACHINE OPERATOR documented in this encounter [facility] 06-26-2022 Note HNO ID: [id number] Author: Anita Berkowitz MA Service: ? Author Type: [employer] Type: Progress Notes Filed: 06/26/2022 8:22 PM Note Text: Scan on 06/26/2022 11:38 AM by External Provider: Miscellaneous Lab Anita Berkowitz MA [facility] 06-26-2022 Note HNO ID: [id number] Author: Beba Obando LPN Service: ? Author Type: ? Type: Progress Notes Filed: 06/26/2022 12:21 PM Note Text: Scan on 06/26/2022 11:38 AM by External Provider: Miscellaneous Lab [facility] 06-26-2022 History of Presen t illness Narrative Scan on 06/26/2022 11:38 AM by External Provider: Miscellaneous Lab Anita Berkowitz MA documented in this encounter [facility] 05-30-2022 Miscellaneous Notes Pt notified of results via [employer]. Courtney Langford Ma Left message for patient [...] SHERIDAN ALLEN MD documented in this encounter [facility] 05-26-2022 Note HNO ID: [id number] Author: Sheridan Allen MD Service: ? Author [...] no masses, lesions (more content not included)... [facility] 05-26-2022 Instructions Sheridan Allen MD - 05/26/2022 3:11 PM EST You want to get the shingrix vaccine for the prevention of shingles you should check with your insurance first to see if covered. documented in this encounter [facility] 05-26-2022 History of Presen t illness Narrative [...] Sheridan Allen MD documented in this encounter [facility] 03-24-2022 Note HNO ID: [id number] Author: Summer Scott RT(R) Service: Radiology Author [...] Scott RT(R) March 24, 2022 5:01 PM [facility] 03-24-2022 Note HNO ID: [id number] Author: Usha Borrero MD Service: ? Author [...] AP BOTH/PA BOTH/LAT/MERC LEFT Usha Borrero MD [facility] 03-21-2022 Note HNO ID: [id number] Author: Susan Rowan APRN.PICKLING MACHINE OPERATOR Service: ? Author Type: Nurse Practitioner Type: [...] history is provided by the patient. No foreign language interpreter was used. Back Pain This is a [...] Musculoskeletal: Positive f (more content not included)... [facility] 03-21-2022 History of Presen t illness [...] history is provided by the patient. No foreign language interpreter was used. Back Pain This is a [...] Susan Rowan APRN.RAJIV documented in this encounter [facility] 03-06-2022 Note HNO ID: [id number] Author: Meliton Nielsen PA-C Service: ? Author Type: Physician Painter Hand Type: Progress Notes Filed: 03/06/2022 6:17 PM [...] THORACIC GENERAL 3V AP/LAT/SWIMMERS Meliton Nielsen PA-C [facility] 03-06-2022 Note HNO ID: [id number] Author: RT Chelsey(R) Service: Nuclear Medicine Author [...] RT Chelsey(R) March 06, 2022 4:46 PM [facility] 03-06-2022 History of Presen t illness Narrative This note was created using [employer]. Subjective Usha Alvarez is a 56 year [...] Meliton Nielsen PA-C documented in this encounter [facility] 11-12-2021 History of Presen t illness Narrative [...] Sheridan Allen MD documented in this encounter [facility] 08-29-2021 Miscellaneous Notes Letter mailed to pt [...] his yearly come October/November. Thanks, Susan Rowan [employer] wendi-- 07/12/21 Next -- none scheduled Last refill-- Betamethasone 11/09/20 30g With 3 refills Omeprazole-- 02/26/2020 90 with 3 refills Last labs-- 07/22/21 documented in this encounter [facility] 07-12-2021 Miscellaneous Notes Pt called and is notified of providers results. Pt voices understanding. Christel Gastelum RN Please call patient and let him know his back xray shows some mild arthritic changes. Thanks, Beatriz Pratt APRN.RAJIV documented in this encounter [facility] 07-12-2021 Instructions Beatriz Pratt APRN.RAJIV - 07/12/2021 [...] legs or feet. documented in this encounter [facility] 07-12-2021 History of Presen t illness Narrative [...] - XR LUMBAR GENERAL 3V AP/LAT/L5-S1 Beatriz rPatt APRN.PICKLING MACHINE OPERATOR Prescription instructions reviewed with patient as applicable. Patient advised if symptoms do not improve or if symptoms worsen sooner, to contact their primary care physician. Potential red flag symptoms discussed with the patient. Reviewed appropriate action plan to take if red flag symptoms occur. Patient agreeable to treatment plan. documented in this encounter [facility] 06-27-2021 Instructions Tisha Hernandez APRN.RAJIV - 06/27/2021 9:45 AM EDT 1.) Recommend using Zyrtec 10 mg daily, Flonase twice daily. 2.) If needed may use 5-10 mg sudafed ( decongestant) for sinus congestion. 3.) Follow up as needed. May use the Olopatadine eye drop daily for allergy symptoms. documented in this encounter [facility] 06-27-2021 History of Presen t illness Narrative [...] discussed and patient voices understanding. Tisha Hernandez APRN.PICKLING MACHINE OPERATOR This note was partially generated using [employer] voice recognition system. Note was reviewed for accuracy. There may be minor misspellings or grammar miscues with [employer] voice recognition. documented in this encounter [facility] documented as of this encounter (statuses as of 06/27/2021) [facility] History of Past illness Narrative* Problem Noted [...] of this encounter (statuses as of 07/12/2021) [facility] History of Past illness Narrative* Problem Noted [...] of this encounter (statuses as of 07/12/2021) [facility] History of Past illness Narrative* Problem Noted [...] of this encounter (statuses as of 08/29/2021) [facility] History of Past illness Narrative* Problem Noted [...] of this encounter (statuses as of 11/13/2021) [facility] History of Past illness Narrative* Problem Noted [...] of this encounter (statuses as of 03/06/2022) [facility] of Past illness Narrative* Problem Noted [...] of this encounter (statuses as of 03/23/2022) [facility] of Past illness Narrative* Problem Noted [...] of this encounter (statuses as of 05/27/2022) [facility] of Past illness Narrative* Problem Noted [...] of this encounter (statuses as of 05/30/2022) [facility] of Past illness Narrative* Problem Noted [...] of this encounter (statuses as of 06/27/2022) [facility] of Past illness Narrative* Problem Noted [...] of this encounter (statuses as of 06/29/2022) [facility] of Past illness Narrative* Problem Noted [...] of this encounter (statuses as of 07/03/2022) [facility] of Past illness Narrative* Problem Noted [...] of this encounter (statuses as of 09/05/2022) [facility] History of Past illness Narrative* Problem Noted [...] of this encounter (statuses as of 10/04/2022) [facility] History of Past illness Narrative* Problem Noted [...] of this encounter (statuses as of 12/23/2022) [facility] Diagnosis Seasonal allergies- Primary Allergic rhinitis, cause unspecified documented [facility] Diagnosis Lumbar back pain- Primary Lumbago [facility] Diagnosis Heartburn Psoriasis Other psoriasis [facility] Diagnosis Left ear pain- Primary Otalgia, unspecified RLQ abdominal pain Abdominal pain, right lower quadrant documented [facility] Diagnosis Mid back pain- Primary Backache, unspecified [facility] Diagnosis Acute bilateral thoracic back pain- Primary [facility] Diagnosis Well adult exam- Primary Routine [...] neoplasm of prostate documented [facility] Diagnosis Sinobronchitis- Primary Unspecified sinusitis (chronic) documented [facility] Diagnosis Bronchitis- Primary Bronchitis, not specified as acute or chronic documented [facility] Diagnosis Heartburn documented in this encounter [facility] for referral (narrative)* Diagnostic Procedure Only (Routine) - Closed Specialty Diagnoses / Procedures Referred By Contac t Referred To Contact XR IMAGING Diagnoses Lumbar back pain Procedures XR LUMBAR GENERAL 3V AP/LAT/L5-S1 RADEX SPINE LUMBOSACRAL 2/3 VIEWS Beatriz Pratt APRN.CNP [address] [place] [address] Xr Imaging Referral ID Status Reason Start Date Expiration Date V isits Requested Visits Authorized [id number] Closed Auto-Generate d Referral 07/12/2021 08/11/2022 1 1 [facility] Diagnostic Procedure Only (Urgent) - Closed Specialty Diagnoses / Procedures Referred By Contac t Referred To Contact XR IMAGING Diagnoses Mid back pain Procedures XR THORACIC GENERAL 3V AP/LAT/SWIMMERS RADEX SPINE THORACIC 3 VIEWS Meliton Nielsen PA-C [address] [place] [address] Xr Imaging Referral ID Status Reason Start Date Expiration Date V isits Requested Visits Authorized [id number] Closed Auto-Generate d Referral 03/06/2022 04/05/2023 1 1 [facility] Advance Directives No Advanced Directives Records FoundDocuments on File Type Date 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 Advance Directive(s) 04/10/2019 8:03 AM Advance Directive(s) 03/27/2019 4:08 PM Advance Directive(s) 02/18/2019 7:34 AM Advance Directive(s) 02/11/2019 4:41 PM Documents on File Type Date 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 Advance Directive(s) 04/10/2019 8:03 AM [...] or prosecute any alcohol or drug abuse patient.[facility] the event this information is protected by the Federal Confidentiality of Alcohol and Drug Abuse Patient Records regulations: The Federal rules restrict any use of the information to criminally investigate or prosecute any alcohol or drug abuse patient.[facility] the event this information is protected by the Federal Confidentiality of Alcohol and Drug Abuse Patient Records regulations: The Federal rules restrict any use of the information to criminally investigate or prosecute any alcohol or drug abuse patient.[facility] the event this information is protected by the Federal Confidentiality of Alcohol and Drug Abuse Patient Records regulations: The Federal rules restrict any use of the information to criminally investigate or prosecute any alcohol or drug abuse patient.[facility] Center[facility] the event this information is protected by the Federal Confidentiality of Alcohol and Drug Abuse Patient Records regulations: The Federal rules restrict any use of the information to criminally investigate or prosecute any alcohol or drug abuse patient.[facility] Center[facility] the event this information is protected by the Federal Confidentiality of Alcohol and Drug Abuse Patient Records regulations: The Federal rules restrict any use of the information to criminally investigate or prosecute any alcohol or drug abuse patient.[facility] CenterIn the event this information is protected by the Federal Confidentiality of Alcohol and Drug Abuse Patient Records regulations: The Federal rules restrict any use of the information to criminally investigate or prosecute any alcohol or drug abuse patient.[facility] CenterIn the event this information is protected by the Federal Confidentiality of Alcohol and Drug Abuse Patient Records regulations: The Federal rules restrict any use of the information to criminally investigate or prosecute any alcohol or drug abuse patient.[facility] CenterIn the event this information is protected by the Federal Confidentiality of Alcohol and Drug Abuse Patient Records regulations: The Federal rules restrict any use of the information to criminally investigate or prosecute any alcohol or drug abuse patient.[facility] CenterIn the event this information is protected by the Federal Confidentiality of Alcohol and Drug Abuse Patient Records regulations: The Federal rules restrict any use of the information to criminally investigate or prosecute any alcohol or drug abuse patient.[facility] CenterIn the event this information is protected by the Federal Confidentiality of Alcohol and Drug Abuse Patient Records regulations: The Federal rules restrict any use of the information to criminally investigate or prosecute any alcohol or drug abuse patient.[facility] CenterIn the event this information is protected by the Federal Confidentiality of Alcohol and Drug Abuse Patient Records regulations: The Federal rules restrict any use of the information to criminally investigate or prosecute any alcohol or drug abuse patient.[facility] CenterIn the event this information is protected by the Federal Confidentiality of Alcohol and Drug Abuse Patient Records regulations: The Federal rules restrict any use of the information to criminally investigate or prosecute any alcohol or drug abuse patient.[facility] CenterIn the event this information is protected by the Federal Confidentiality of Alcohol and Drug Abuse Patient Records regulations: The Federal rules restrict any use of the information to criminally investigate or prosecute any alcohol or drug abuse patient.[facility] CenterIn the event this information is protected by the Federal Confidentiality of Alcohol and Drug Abuse Patient Records regulations: The Federal rules restrict any use of the information to criminally investigate or prosecute any alcohol or drug abuse patient.[facility] Reason for Visit (unrecogniz ed section and [...] Reason Comments Refill Request Reason Comments Outside [id number] Ordered Reason Comments Medication Problem Care Teams (unrecognized sec tion and content) Box Stacker Relationship Specialty Start Date End Date Sheridan Allen MD [address] [facility] [address] PCP - General Family Practice 11/09/20 Wayne Victoria [facility] [address] [place] [address] Gastroenterology 01/26/20 Box Stacker Relationship Specialty Start Date End Date Sheridan Allen MD [address] [facility] [address] PCP - General Family Practice 11/09/20 Wayne Victoria [facility] [address] [place] [address] Gastroenterology 01/26/20 Box Stacker Relationship Specialty Start Date End Date Sheridan Allen MD [address] [facility] [address] PCP - General Family Medicine 11/09/20 Wayne Victoria [facility] [address] [place] [address] Gastroenterology 01/26/20 Box Stacker Relationship Specialty Start Date End Date Sheridan Allen MD [address] [facility] [address] PCP - General Family Medicine 11/09/20 Wayne Victoria E [facility] [address] [place] [address] Gastroenterology 01/26/20 Box Stacker Relationship Specialty Start Date End Date Sheridan Allen MD [address] [place] [address] PCP - General Family Medicine 11/09/20 Wayne Victoria [address] [place] [facility] [address] [place] [address] Gastroenterology 01/26/20 Box Stacker Relationship Specialty Start Date End Date Sheridan Allen MD [address] [place] [address] PCP - General Family Medicine 11/09/20 Wayne Victoria [address] [place] [facility] [address] [place] [address] Gastroenterology 01/26/20 Box Stacker Relationship Specialty Start Date End Date Sheridan Allen MD [address] [facility] [address] PCP - General Family Medicine 11/09/20 Wayne Victoria [address] [place] [facility] [place] [address] Gastroenterology 01/26/20 Box Stacker Relationship Specialty Start Date End Date Sheridan Allen MD [address] [facility] [address] PCP - General Family Medicine 11/09/20 Wayne Victoria [address] [place] [facility] [place] [address] Gastroenterology 01/26/20 Box Stacker Relationship Specialty Start Date End Date Sheridan Allen MD [address] [facility] [place] [address] PCP - General Family Medicine 11/09/20 Wayne Victoria [address] [place] [address] [place] [address] Gastroenterology 01/26/20 Box Stacker Relationship Specialty Start Date End Date Sheridan Allen MD [address] [facility], [place] [address] PCP - General Family Medicine 11/09/20 Wayne Victoria [address] [facility] [address] [place], [place] [address] Gastroenterology 01/26/20 Box Stacker Relationship Specialty Start Date End Date Sheridan Allen MD [address] [facility], [place] [address] PCP - General Family Medicine 11/09/20 Wayne Victoria [address] [facility] [address] [place], [place] [address] Gastroenterology 01/26/20 Box Stacker Relationship Specialty Start Date End Date Sheridan Allen MD [address] [facility], [place] [id number] PCP - General Family Medicine 11/09/20 Wayne Victoria MD [address] [facility] [address] [place], [place] [address] Gastroenterology 01/26/20 (unrecognized sect ion and content) [...] BE BASED ON THE PRIMARY CLINICAL RECORDS. [employer] [facility]. provides no warranty or guarantee of the accuracy or completeness of information in this document.
[2023-04-10 14:09] LABS: Calprotectin, Stool 19 ug/g (0-120)
== END | disposition home or self-care (01) ==
LOC: LABSPEC 06:38
PROVIDERS: PCP Family Medicine; Referring Provider Internal Medicine Gastroenterology; Visit Provider Internal Medicine Gastroenterology
DX: K50.018 Crohn's disease of small intestine with other complication (principal)
CPT/HCPCS: 83630; 83993

== ENCOUNTER → 2024-05-26 | Outpatient (CLI) | payer OTHER, SELFPAY ==
--- NOTE | 2024-05-26 12:30 | STRESSREP ---
Stress Test Report Date: 05/26/2024 Procedure: Exercise tolerance test Indications: Shortness of breath Consent: Per the patient Procedure: The patient exercised on a Curry protocol for 10 minutes and 8 seconds achieving a peak heart rate of 162 bpm (99% predicted maximal heart rate) with a peak blood pressure 160/78 mmHg and a peak MET capacity of approximately 13.4 MET's. The baseline ECG demonstrated normal sinus rhythm. The peak exercise ECG demonstrated no significant ischemic changes. [There were no cardiac dysrhythmias pretest, during exercise, or recovery]. The functional capacity was considered excellent for age. The patient had no complaint of chest discomfort during exercise or recovery. The examination was discontinued secondary to achieving target heart rate. Impression: 1. Technically adequate (percent predicted maximal heart rate greater than 85%) exercise tolerance test 2. Stress test is negative for exercise-induced chest pain. 3. Stress test test is negative for exercise-induced EKG changes of ischemia. 4. Functional capacity is excellent for age This note was generated with Smartisanation software. It may contain incorrect words, spelling, and punctuation that were not noted in checking the note before signing.
== END | disposition home or self-care (01) ==
PROVIDERS: PCP Family Medicine; Referring Provider Family Medicine; Visit Provider Family Medicine
DX: R06.02 Shortness of breath (principal); R07.89 Other chest pain
CPT/HCPCS: 93017

== ENCOUNTER 2024-07-10 14:25 | Observation (INO) | payer OTHER, SELFPAY ==
[2024-07-10 14:26] VITALS: BP 123/80; PULSE 87; RESP 16; TEMP 36.8; O2SAT 98; BMI 27.1
--- NOTE | 2024-07-10 15:06 | CT_ITS ---
PROCEDURE: ABDOMEN/PELVIS W IV CONT ONLY 07/10/2024 REASON FOR EXAM: LLQ PAIN, HX DIVERTICULITIS TECHNIQUE: Abdomen and pelvis CT with intravenous contrast. Coronal and Sagittal reconstruction series were provided One or more dose reduction techniques were used (e.g., Automated exposure control, adjustment of the mA and/or kV according to patient size, use of iterative reconstruction technique. COMPARISON: None FINDINGS: Lung bases are clear. Liver, spleen, pancreas and adrenal glands are within normal limits. Gallbladder is satisfactory. No significant biliary ductal dilation. Kidneys enhance symmetrically. Punctate nonobstructing right renal calculus. No suspicious renal mass or hydronephrosis. Urinary bladder is decompressed which limits its assessment. Large colonic diverticulum measuring 11 mm at the hepatic flexure with wall thickening and moderate surrounding inflammatory changes most consistent with acute diverticulitis. No pericolonic abscess or free air. Scattered diverticula elsewhere without inflammation. No obstruction. Normal appendix. No pelvic free fluid. No free air. Moderately calcified nonaneurysmal abdominal aorta. No bulky adenopathy. Tiny bilateral fat containing umbilical and inguinal hernias. No acute osseous abnormality. CT/Abdomen/Pelvis W IV Cont ONLY IMPRESSION: 1. Moderate acute uncomplicated colonic diverticulitis at the hepatic flexure. 2. Incidental findings as above. Reading Location: [facility]
--- NOTE | 2024-07-10 15:07 | ED.VIS.GI ---
HPI HPI - GI History of Present Illness Chief Complaint: Abd Pain Detail of Chief Complaint: Abdominal pain Informant: patient Narrative Narrative: Patient presents with complaint of abdominal pain x 3 weeks. Patient states that he was on a 5-day course of Augmentin and then just finished recently a 10-day course of Augmentin that was prescribed by Dr. Chapin. The initial course of Augmentin was prescribed by urgent care. Patient has history of diverticulitis. Continues to have discomfort to the left lower quadrant and suprapubic region. He denies fevers or chills or sweats. He has had some brown watery stools but has not eaten much since 4 days ago. Patient tells me that 3 to 4 years ago he had a bowel perforation that did not require any surgery as things healed without surgical intervention. He has had no prior abdominal surgeries. [facility] Medical History Clostridium difficile infection Diarrhea Vitamin D deficiency Segmental and somatic dysfunction of pelvic region Segmental and somatic dysfunction of thoracic region Segmental and somatic dysfunction of lumbar region Depression with anxiety Alcohol abuse Tobacco use disorder Home Medications ?Medication ?Instructions ?Recorded ?Last Taken ?Type dicyclomine 10 mg capsule 10 - 20 mg PO TID PRN abdominal 02/18/24 07/10/24 History pain omeprazole 20 mg capsule,delayed 20 mg PO DAILY 02/18/24 07/10/24 History release balsalazide 750 mg capsule 2,250 mg PO TID 07/10/24 07/10/24 History betamethasone dipropionate 0.05 % 1 applic topical BID PRN skin 07/10/24 Unknown History topical cream irritation ergocalciferol (vitamin D2) 1,250 1,250 mcg PO TH 07/10/24 Unknown History mcg (50,000 unit) capsule sodium chloride 0.65 % nasal spray 1 spray intranasal BID PRN nasal 07/10/24 Unknown History aerosol ([place] Saline) congestion Allergy/AdvReac Type Severity Reaction Status Date / Time erythromycin base Allergy Mild itching Verified 07/10/24 14:28 shellfish derived Allergy Swelling Verified 07/10/24 14:28 azithromycin AdvReac Intermediate Nausea Verified 07/10/24 14:28 Social History Smoking Status: Former smoker alcohol intake: current alcohol intake frequency: 0-2 drinks per day substance use type: does not use what type of physical activity do you participate in: none ROS ROS ED Review of Systems ROS Unobtainable: other Constitutional Constitutional ED: Reports lethargy; Denies chills, fever(s), sweats or weight loss Eyes Eyes: Denies blurry vision, change in vision or diplopia ENT ENT ED: Denies rhinorrhea or sore throat Cardiovascular Cardiovascular: Denies chest pain, orthopnea or racing heartbeat Respiratory/Chest Respiratory/Chest: Reports dyspnea on exertion; Denies cough, dyspnea, orthopnea or sputum Gastrointestinal Gastrointestinal: Reports abdominal pain; Denies diarrhea, nausea or vomiting Genitourinary Genitourinary ED: Denies dysuria, hematuria or urinary frequency Musculoskeletal Musculoskeletal: Denies arthralgias, back pain, myalgias or neck pain Integumentary Denies abscess, Abrasions or rash Neurologic Neurologic: Denies headache(s) or weakness Psychiatric Psychiatric: Denies anxiety, depression or suicidal thoughts Endocrine Endocrinology: Denies polydipsia, polyphagia or polyuria Hematologic/Lymphatic Hematologic/Lymphatic: Denies easy bleeding, easy bruising or lymphadenopathy Allergic/Immunologic Allergic/Immunologic ED: Denies mouth swelling, tongue swelling or urticaria EXAM Physical Exam Const Vital Signs: 07/10/24 14:26 07/10/24 16:22 Temperature 98.3 F Temperature Source Oral Pulse Rate 87 83 Respiratory Rate 16 12 Blood Pressure 123/80 H 122/64 H Blood Pressure Mean 94 83 Pulse Ox 98 96 Oxygen Delivery Method Room Air Room Air Positive well nourished and well developed General Appearance ED: well developed and NAD HEENT Reports TM's clear and moist mucous membranes normocephalic and atraumatic; Negative for trauma or tenderness Tympanic Membrane ED: Yes TM's clear Eyes PERRL and EOMs intact bilaterally General Eye ED: Negative for pale conjunctiva or scleral icterus Neck no lymphadenopathy, supple and no JVD General: Negative for tenderness Chest Wall inspection of chest normal and palpation of chest normal Chest: Negative for tenderness Resp normal respiratory effort and clear to auscultation bilaterally Effort and Inspection: Negative for respiratory distress or pain with movement Auscultation: Negative for rhonchi, wheezes or diminished lung sounds Cardio regular rate, regular rhythm, S1 normal heart sound, S2 normal heart sound and no murmurs Peripheral Pulses: pulses 2+ throughout GI normal to inspection, nondistended, normoactive bowel sounds, soft to palpation, non-distended and no masses GI Narrative: Tenderness palpation over left lower quadrant and suprapubic region with mild guarding. There is no rebound, rigidity, or peritoneal signs. No mass palpated Back/Spine no CVA tenderness and no thoracic nor lumbar tenderness Extremity normal to inspection General Extremety ED: Negative for edema General Extremity: Negative for edema Neuro oriented x3, CN's II-XII intact bilaterally, no sensory deficits noted and gait normal Sensorium / Orientation: awake, alert, oriented to person, oriented to place and oriented to time Motor Exam: strength 5/5 throughout and strength abnormal Psych mental status grossly normal Skin no rashes or lesions noted and no wounds MDM MDM MDM Narrative Medical decision making narrative: Patient presents with history of diverticulitis and abdominal pain ongoing for 3 weeks. He has been on Augmentin for at least 15 days prior. Patient denies fever. Denies nausea or vomiting. He has had some watery stool. Remote history of perforated bowel that did not require surgery. IV line established on arrival. He did not want anything for pain initially. CBC with differential obtained showed a white count of 11.4 with hemoglobin 16 and platelet count of 238. Chemistries were unremarkable. Lactate less than 1. Urine without signs of infection. LFTs had a minimally elevated total bilirubin of 1.74 with minimal elevation in his AST at 39 and a normal ALT at 18. Alk phos was 98. CT scan of the abdomen pelvis showed moderate acute uncomplicated diverticulitis at the hepatic flexure. Case discussed with Dr. Chapin who is patient's advanced practice nurse psychotherapist. At this point recommended admission for IV antibiotics as this is failed outpatient therapy. Discussed case with hospitalist Dr. Greene who will evaluate patient for admission Lab Data Attestation: I reviewed the patient's lab results. Labs: Laboratory Results - last 24 hr 07/10/24 15:24 WBC 11.4 H RBC 5.09 Hgb 16.0 Hct 47.6 MCV 93.5 MCH 31.4 MCHC 33.6 RDW Std Deviation 44.5 H RDW Coeff of Minnie 13.0 Plt Count 238 MPV 9.6 Immature Gran % (Auto) 0.400 Neut % (Auto) 74.8 H Lymph % (Auto) 10.9 L Jessamine % (Auto) 11.5 H Eos % (Auto) 2.1 Baso % (Auto) 0.3 Absolute Neuts (auto) 8.6 H Absolute Lymphs (auto) 1.24 Nucleated RBC % 0 Sodium 136 Potassium 4.1 Chloride 101 Carbon Dioxide 23.7 Anion Gap 11 BUN 11 Creatinine 1.07 Estim Creat Clear Calc 68.74 Est GFR (MDRD) Non-Af 81 BUN/Creatinine Ratio 10.4 Glucose 97 Lactic Acid < 1.0 Calcium 9.0 Total Bilirubin 1.74 H Direct Bilirubin 0.68 H AST 39 H ALT 16 Alkaline Phosphatase 98 Total Protein 6.9 Albumin 4.2 Globulin 2.7 Urine Color Robina Urine Clarity Clear Urine pH 5.0 Ur Specific [place] 1.025 Urine Protein 30 H Urine Glucose (UA) Normal Urine Ketones 150 A* Urine Occult Blood Negative Urine Nitrite Negative Urine Bilirubin 1 H Urine Urobilinogen 1 H Ur Leukocyte Esterase 25 H Urine RBC 0 SEEN Urine WBC 0-5 SEEN Ur Squamous Epith Cells 0 SEEN Urine Bacteria 1+ Urine Mucus 2+ Radiography Diagnostic Testing: Clinical Impression(s) from Imaging Studies Abdomen/Pelvis CT 07/10/24 15:06 IMPRESSION: 1. Moderate acute uncomplicated colonic diverticulitis at the hepatic flexure. 2. Incidental findings as above. Reading Location: [facility] Discharge Plan Triage Chief Complaint: Abd Pain ED Provider: Naya Haas Dx/Rx/DC Orders Clinical Impression: Abdominal pain, Acute diverticulitis Prescriptions: No Action dicyclomine 10 mg capsule 10 - 20 mg PO TID PRN (Reason: abdominal pain) omeprazole 20 mg capsule,delayed release(DR/EC) 20 mg PO DAILY balsalazide 750 mg capsule 2,250 mg PO TID betamethasone dipropionate 0.05 % cream 1 applic topical BID PRN (Reason: skin irritation) ergocalciferol (vitamin D2) 1,250 mcg (50,000 unit) capsule 1,250 mcg PO TH [place]enton Saline 0.65 % aerosol,spray 1 spray intranasal BID PRN (Reason: nasal congestion) Primary Care Provider: Kee Kendall Referrals: Kee Kendall MD [Primary Care Provider] - Print Language: [place] Disposition [facility]
[2024-07-10 15:32] LABS: Red Blood Cells-Urine 0 SEEN /hpf (0-5); Squamous Epithelial Cells - UA 0 SEEN /hpf (0-5)
[2024-07-10] MEDS: 0.9% Normal Saline (1000mL) 1,000 ML 125 ML IV ×2 (15:33→22:43)
[2024-07-10 15:35] LABS: Absolute Lymphocyte Count 1.24 X10^3/uL (0.83-4.51); Absolute Neutrophil Count 8.6 X10^3/uL (2.0-7.7); Basophil# 0.03 X10^3/uL; Basophil% 0.3 % (0-1); Eosinophil# 0.24 X10^3/uL; Eosinophils% 2.1 % (0-5); Hematocrit 47.6 % (40-54); Lymphocyte # 1.24 X10^3/ul (0.83-4.51); Lymphocyte % 10.9 % (19-41); Mean Corp Hgb Conc 33.6 g/dL (32-36); Mean Corpuscular Hgb 31.4 pg (27.0-32.0); Mean Corpuscular Volume 93.5 fL (80-94); Mean Platelet Vol. 9.6 fl (6.2-12.0); Monocyte# 1.31 X10^3/uL; Monocyte% 11.5 % (0-10); NRBC Flagged by Analyzer 0 % (0-5); Neutrophil # 8.55 X10^3/uL (2.7-7.7); Neutrophil % 74.8 % (47-70); Platelet Count 238 K/mm3 (150-450); RBC Distribution Width SD 44.5 fl (35.1-43.9); Red Blood Count 5.09 M/mm3 (4.6-6.2); White Blood Count 11.4 K/mm3 (4.4-11.0)
[2024-07-10 15:37] LABS: Color, Urine Amber (Yellow); Glucose, Dipstick Normal (Normal); Leukocyte Esterase-Dipstick 25 /ul (Negative); Nitrite-Dipstick Negative (Negative); Occult Blood-Urine Negative /ul (Negative); Protein-Dipstick 30 mg/dl (Negative); Specific Gravity, Urine 1.025 (1.002-1.030); Urine Clarity Clear (Clear); Urine Urobilinogen 1 mg/dl (Normal)
[2024-07-10 15:44] LABS: Urine Bilirubin Dipstick 1 mg/dL (Negative)
[2024-07-10 15:57] LABS: Ketone-Dipstick 150 mg/dl (Negative)
[2024-07-10 16:01] LABS: Lactic Acid < 1.0 mmol/L (0.0-2.0)
[2024-07-10 16:02] LABS: Anion Gap 11 (5-15); BUN 11 mg/dL (4-19); BUN/Creat Ratio 10.4 RATIO (10-20); Carbon Dioxide 23.7 mmol/L (21.0-32.0); Chloride 101 mmol/L (98-108); Creatinine, Serum 1.07 mg/dL (0.70-1.20); EST Glomerular Filtration Rate 81 (>60); Estimated Creatinine Clearance 68.74 ml/min (50-250); Glucose 97 mg/dL (70-99); Potassium 4.1 mmol/L (3.3-5.1); Sodium Level 136 mmol/L (133-145)
[2024-07-10 16:09] LABS: Bacteria 1+ /hpf (None Seen); Mucous, Urine 2+ /hpf (<or=2+); White Blood Cells 0-5 SEEN /hpf (0-5)
[2024-07-10 16:22] VITALS: BP 122/64; PULSE 83; RESP 12; O2SAT 96
[2024-07-10 16:26] LABS: AST(SGOT) 39 U/L (<=37); Alanine Aminotransfer ALT/SGPT 16 U/L (<=46); Albumin, Serum 4.2 g/dL (3.5-5.0); Alkaline Phosphatase 98 U/L (40-129); Bilirubin, Direct 0.68 mg/dL (0.00-0.30); Globulin 2.7 g/dL (2.2-4.2); Protein, Total 6.9 g/dL (5.9-8.4); Total Bilirubin 1.74 mg/dL (0.00-1.30)
[2024-07-10 17:17] VITALS: BP 138/80; PULSE 83; RESP 15; TEMP 36.8; O2SAT 99
[2024-07-10 17:18] VITALS: BP 138/80; PULSE 83; RESP 15; TEMP 36.8; O2SAT 99
[2024-07-10] MEDS: metroNIDAZOLE 500 MG/100 ML BAG 100 MG IV ×2 (17:19→22:43)
[2024-07-10] MEDS: Ondansetron 4 MG/2 ML Vial IV (17:21)
[2024-07-10] MEDS: HYDROmorphone 0.5 MG/0.5 ML SYRINGE IV (17:21)
--- NOTE | 2024-07-10 17:26 | PCM.HP.STD ---
HPI - General General Date of Admission: 07/10/24 Date of Service: 07/10/24 Chief Complaint: Abdominal pain, diarrhea, poor p.o. intake HPI Narrative USHA ALLEN, is a 58 M with a history of Graves' disease and GERD who presented to [facility] ED 07/10/2024 with 3 weeks of abdominal pain. He was seen at urgent care and was on a 5-day course of Augmentin and when he finished that due to continued pain he contacted his GI physician Dr. Chapin and had a 10-day course of Augmentin which he recently finished, he been having pain in his lower abdomen and it migrated up and has been having brown watery stool and poor p.o. intake for about a week prompting him to come to the emergency department. In the ED lab workup revealed a white blood cell count of 11.4, patient vitally stable and total bili of 1.74 with an AST of 39 and ALT of 16, alk phos within normal limits. Kidney function at baseline and lactic acid within normal limits. UA with ketones but did not appear to be infected. CT of the abdomen and pelvis did demonstrate moderate acute uncomplicated colonic diverticulitis at the hepatic flexure. ED physician contacted his traveling sales representative and given patient essentially failed outpatient management it was recommended patient be admitted for IV antibiotics. Hospitalist contacted for admission. Patient evaluated with family member at bedside, reportedly has had the pain for 3 weeks that did start lower in the abdomen and migrated upwards and towards the right, about a week ago he started having diarrhea and then since Sunday its essentially been nothing but watery stool, has also had poor p.o. intake for about the past week and reports taking in primarily liquids as he is afraid that food will worsen his pain. Denies any fevers, reports he does have some pain in his back and his knees which happens when he has any kind of GI flare. Does have a little bit of nausea as well. [facility] Medical History Clostridium difficile infection Diarrhea Vitamin D deficiency Segmental and somatic dysfunction of pelvic region Segmental and somatic dysfunction of thoracic region Segmental and somatic dysfunction of lumbar region Depression with anxiety Alcohol abuse Tobacco use disorder Home Medications ?Medication ?Instructions ?Recorded ?Last Taken ?Type dicyclomine 10 mg capsule 10 - 20 mg PO TID PRN abdominal 02/18/24 07/10/24 History pain omeprazole 20 mg capsule,delayed 20 mg PO DAILY 02/18/24 07/10/24 History release balsalazide 750 mg capsule 2,250 mg PO TID 07/10/24 07/10/24 History betamethasone dipropionate 0.05 % 1 applic topical BID PRN skin 07/10/24 Unknown History topical cream irritation ergocalciferol (vitamin D2) 1,250 1,250 mcg PO TH 07/10/24 Unknown History mcg (50,000 unit) capsule sodium chloride 0.65 % nasal spray 1 spray intranasal BID PRN nasal 07/10/24 Unknown History aerosol ([place] Saline) congestion Allergy/AdvReac Type Severity Reaction Status Date / Time erythromycin base Allergy Mild itching Verified 07/10/24 14:28 shellfish derived Allergy Swelling Verified 07/10/24 14:28 azithromycin AdvReac Intermediate Nausea Verified 07/10/24 14:28 Social History Smoking Status: Former smoker alcohol intake: current alcohol intake frequency: 0-2 drinks per day substance use type: does not use what type of physical activity do you participate in: none ROS ROS Narrative General: Denies fever/chills HENT: Denies headache, denies stuffy nose, denies sore throat EYES: Denies changes in vision Resp: Denies cough, denies shortness of breath Cardiac: Denies chest pain GI: Abdominal pain with diarrhea and nausea : Denies changes in urination Extremity: Denies swelling MSK: Denies weakness, does have some knee and back pain Neuro: Denies any numbness/tingling Heme: Denies any bleeding or bruising Skin: Denies rashes Psychiatric: No complaints voiced Vital Signs Vital Signs Vital Signs: 07/10/24 14:26 07/10/24 16:22 07/10/24 17:17 Temperature 98.3 F 98.3 F Temperature Source Oral Pulse Rate 87 83 83 Respiratory Rate 16 12 15 Blood Pressure 123/80 H 122/64 H 138/80 H Blood Pressure Mean 94 83 99 Pulse Ox 98 96 99 Oxygen Delivery Method Room Air Room Air 07/10/24 17:18 Temperature 98.3 F Temperature Source Oral Pulse Rate 83 Respiratory Rate 15 Blood Pressure 138/80 H Blood Pressure Mean 99 Pulse Ox 99 Oxygen Delivery Method Room Air Weight Weight: 76.317 kg Body Mass Index (BMI) 27.1 Physical Exam Narrative General: Alert, oriented, no apparent distress HEENT: Atraumatic, normocephalic Eyes: Anicteric, normal conjunctiva, extraocular movements grossly intact Neck: Supple Respiratory: Clear to auscultation bilaterally, normal respiratory effort Cardiovascular: Regular rate and rhythm GI: Soft, nondistended, some right sided pain without rebound, guarding, rigidity Extremities: No edema Musculoskeletal: Moving all extremities Neuro: No overt focal neurological deficits Skin: No rashes appreciated Psych: Cooperative Results Lab / Micro Data 07/10/24 15:24 07/10/24 15:24 Labs: Laboratory Results - last 24 hr 07/10/24 15:24: WBC 11.4 H, RBC 5.09, Hgb 16.0, Hct 47.6, MCV 93.5, MCH 31.4, MCHC 33.6, RDW Std Deviation 44.5 H, RDW Coeff of Minnie 13.0, Plt Count 238, MPV 9.6, Immature Gran % (Auto) 0.400, Neut % (Auto) 74.8 H, Lymph % (Auto) 10.9 L, [place] % (Auto) 11.5 H, Eos % (Auto) 2.1, Baso % (Auto) 0.3, Absolute Neuts (auto) 8.6 H, Absolute Lymphs (auto) 1.24, Nucleated RBC % 0, Sodium 136, Potassium 4.1, Chloride 101, Carbon Dioxide 23.7, Anion Gap 11, BUN 11, Creatinine 1.07, Estim Creat Clear Calc 68.74, Est GFR (MDRD) Non-Af 81, BUN/Creatinine Ratio 10.4, Glucose 97, Lactic Acid < 1.0, Calcium 9.0, Total Bilirubin 1.74 H, Direct Bilirubin 0.68 H, AST 39 H, ALT 16, Alkaline Phosphatase 98, Total Protein 6.9, Albumin 4.2, Globulin 2.7, Urine Color Robina, Urine Clarity Clear, Urine pH 5.0, Ur Specific [place] 1.025, Urine Protein 30 H, Urine Glucose (UA) Normal, Urine Ketones 150 A*, Urine Occult Blood Negative, Urine Nitrite Negative, Urine Bilirubin 1 H, Urine Urobilinogen 1 H, Ur Leukocyte Esterase 25 H, Urine RBC 0 SEEN, Urine WBC 0-5 SEEN, Ur Squamous Epith Cells 0 SEEN, Urine Bacteria 1+, Urine Mucus 2+ Imaging Radiology Impression Abdomen/Pelvis CT 07/10/24 15:06 IMPRESSION: 1. Moderate acute uncomplicated colonic diverticulitis at the hepatic flexure. 2. Incidental findings as above. Reading [facility] Assessment & Plan Assessment/Plan (1) Acute diverticulitis: (2) Abdominal pain: PLAN: Plan #Acute diverticulitis -CT of the abdomen and pelvis demonstrated moderate acute uncomplicated colonic diverticulitis hepatic flexure -Patient's GI doctor contacted in the ED and recommended admission as he essentially failed outpatient treatment after having 15 days of Augmentin -IV fluids -IV Cipro and Flagyl -Pain management -Advance diet as tolerated -Will need to follow-up with his GI physician on discharge, if patient does not begin improving can consider inpatient GI consult # Diarrhea and vomiting - Suspect secondary to above however patient was on 2 weeks of Augmentin and then developed significant amount of watery diarrhea, will check C. difficile and enteric panel - Will place patient on probiotic, he reports now whenever he takes probiotics he needs placed on a probiotic due to history of antibiotic induced colitis, it seems he has previously had C. difficile and suspects that this is what he was referring to # History of Crohn's disease - Follows in the GI office, per GI documentation patient does have history of Crohn's disease - Continue balsalazide #GERD -Continue PPI #DVT ppx: SCDs Ritu Greene MD Time spent in the patient's overall evaluation, decision-making process, review of diagnostic data, adjustment of management, discussion with other providers, nursing and ancillary staff involved in patient's care documentation, 59 Minutes Charges/Coding Visit Charges Inpatient E&M: 00397 Init Hosp L2
--- NOTE | 2024-07-10 18:16 | EX.PCM.CON.G ---
HPI Consult Data Date of Consult: 07/10/24 HPI Narrative Reason for Consultation: Diverticulitis HPI Narrative: USHA ALLEN, is a 58 M who presents with complaint of abdominal pain x 3 weeks. He states that he was on a 5-day course of Augmentin and then just finished recently a 10-day course of Augmentin that was prescribed by myself. The initial course of Augmentin was prescribed by urgent care. He has history of diverticulitis. C he ontinues to have discomfort to the left lower quadrant and suprapubic region. He denies fevers or chills or sweats. He has had some brown watery stools but has not eaten much since 4 days ago. Patient says that 3 to 4 years ago he had a bowel perforation that did not require any surgery as things healed without surgical intervention. He has had no prior abdominal surgeries. Background :GI with outside facility established previously who diagnosed UC.?Balsalazide 750mg?TID 04.21.20? Colonoscopy 04.10.19 through [facility]?found anal fissure; mild inflammation with erythema and friability in descending colon; mild inflammation with erosions, erythema and friability in sigmoid colon; moderate inflammation with erosions, erythema, friability and granularity in recto-sigmoid colon; few small-mouthed diverticula in sigmoid colon.? Colonoscopy 09.07.[address] Victoria?found numerous diverticula through left colon; colonic spasm. Biopsy revealed ileal mucosa with focal surface erosion in the small bowel. Remaining biopsies without pathologic change.? CT scan abd/pel 05.20.20?colonic diverticula consistent with diverticulosis, atherosclerotic calcification of abdominal aorta.? Urgent care early 2021 for increased pain/discomfort and started on cipro/flagyl and dicyclomine and this was helpful after a couple of days.?? [facility] Medical History Clostridium difficile infection Diarrhea Vitamin D deficiency Segmental and somatic dysfunction of pelvic region Segmental and somatic dysfunction of thoracic region Segmental and somatic dysfunction of lumbar region Depression with anxiety Alcohol abuse Tobacco use disorder Home Medications ?Medication ?Instructions ?Recorded ?Last Taken ?Type dicyclomine 10 mg capsule 10 - 20 mg PO TID PRN abdominal 02/18/24 07/10/24 History pain omeprazole 20 mg capsule,delayed 20 mg PO DAILY 02/18/24 07/10/24 History release balsalazide 750 mg capsule 2,250 mg PO TID 07/10/24 07/10/24 History betamethasone dipropionate 0.05 % 1 applic topical BID PRN skin 07/10/24 Unknown History topical cream irritation ergocalciferol (vitamin D2) 1,250 1,250 mcg PO TH 07/10/24 Unknown History mcg (50,000 unit) capsule sodium chloride 0.65 % nasal spray 1 spray intranasal BID PRN nasal 07/10/24 Unknown History aerosol ([place] Saline) congestion Allergy/AdvReac Type Severity Reaction Status Date / Time erythromycin base Allergy Mild itching Verified 07/10/24 14:28 shellfish derived Allergy Swelling Verified 07/10/24 14:28 azithromycin AdvReac Intermediate Nausea Verified 07/10/24 14:28 Social History Smoking Status: Former smoker alcohol intake: current alcohol intake frequency: 0-2 drinks per day substance use type: does not use what type of physical activity do you participate in: none ROS ROS Narrative General: Denies fever/chills HENT: Denies headache, denies stuffy nose, denies sore throat EYES: Denies changes in vision Resp: Denies cough, denies shortness of breath Cardiac: Denies chest pain GI: Abdominal pain with diarrhea and nausea : Denies changes in urination Extremity: Denies swelling MSK: Denies weakness, does have some knee and back pain Neuro: Denies any numbness/tingling Heme: Denies any bleeding or bruising Skin: Denies rashes Psychiatric: No complaints voiced Physical Exam Narrative General: Alert, oriented, no apparent distress HEENT: Atraumatic, normocephalic Eyes: Anicteric, normal conjunctiva, extraocular movements grossly intact Neck: Supple Respiratory: Clear to auscultation bilaterally, normal respiratory effort Cardiovascular: Regular rate and rhythm GI: Soft, nondistended, some right sided pain without rebound, guarding, rigidity Extremities: No edema Musculoskeletal: Moving all extremities Neuro: No overt focal neurological deficits Skin: No rashes appreciated Psych: Cooperative Lab / Micro Data 07/10/24 15:24 07/10/24 15:24 Labs: Laboratory Results - last 24 hr 07/10/24 15:24: WBC 11.4 H, RBC 5.09, Hgb 16.0, Hct 47.6, MCV 93.5, MCH 31.4, MCHC 33.6, RDW Std Deviation 44.5 H, RDW Coeff of Minnie 13.0, Plt Count 238, MPV 9.6, Immature Gran % (Auto) 0.400, Neut % (Auto) 74.8 H, Lymph % (Auto) 10.9 L, [place] % (Auto) 11.5 H, Eos % (Auto) 2.1, Baso % (Auto) 0.3, Absolute Neuts (auto) 8.6 H, Absolute Lymphs (auto) 1.24, Nucleated RBC % 0, Sodium 136, Potassium 4.1, Chloride 101, Carbon Dioxide 23.7, Anion Gap 11, BUN 11, Creatinine 1.07, Estim Creat Clear Calc 68.74, Est GFR (MDRD) Non-Af 81, BUN/Creatinine Ratio 10.4, Glucose 97, Lactic Acid < 1.0, Calcium 9.0, Total Bilirubin 1.74 H, Direct Bilirubin 0.68 H, AST 39 H, ALT 16, Alkaline Phosphatase 98, Total Protein 6.9, Albumin 4.2, Globulin 2.7, Urine Color Rob[place], Urine Clarity Clear, Urine pH 5.0, Ur Specific [place] 1.025, Urine Protein 30 H, Urine Glucose (UA) Normal, Urine Ketones 150 A*, Urine Occult Blood Negative, Urine Nitrite Negative, Urine Bilirubin 1 H, Urine Urobilinogen 1 H, Ur Leukocyte Esterase 25 H, Urine RBC 0 SEEN, Urine WBC 0-5 SEEN, Ur Squamous Epith Cells 0 SEEN, Urine Bacteria 1+, Urine Mucus 2+ Imaging Radiology Impression Abdomen/Pelvis CT 07/10/24 15:06 IMPRESSION: 1. Moderate acute uncomplicated colonic diverticulitis at the hepatic flexure. 2. Incidental findings as above. Reading Location: [facility] Assessment & Plan Assessment/Plan (1) Acute diverticulitis: (2) Abdominal pain: PLAN: Plan 58-year-old known to GI service with failed outpatient management of acute diverticulitis -CT of the abdomen and pelvis demonstrated moderate acute uncomplicated colonic diverticulitis hepatic flexure this is a very odd location to have acute diverticulitis although he does have some right-sided diverticuli - Diarrhea and vomiting. I suspect secondary to above however patient was on 2 weeks of Augmentin and then developed significant amount of watery diarrhea, will check C. difficile and enteric panel I agree with placing the patient on probiotic, he reports now whenever he takes probiotics he needs placed on a probiotic due to history of antibiotic induced colitis, it seems he has previously had C. difficile and suspects that this is what he was referring to History of Crohn's disease - Continue balsalazide Charges/Coding Visit Charges Inpatient E&M: 00000 Init Hosp L3
[2024-07-10] MEDS: Ciprofloxacin 400 MG/200 ML BAG 200 MG IV (18:31)
[2024-07-10 18:36] VITALS: BMI 26.9
[2024-07-10 19:20] VITALS: BP 124/63; PULSE 70; RESP 18; TEMP 37.5; O2SAT 100
[2024-07-10 22:40] VITALS: BP 110/62; PULSE 60; RESP 20; TEMP 36.8; O2SAT 98
[2024-07-10] MEDS: BALSALAZIDE DISODIUM 750 MG CAPSULE 2250 MG PO (22:44)
[2024-07-10] MEDS: Acetaminophen 325 MG Tablet 650 MG PO (22:45)
[2024-07-10] MEDS: MELATONIN 10 MG TABLET PO (22:45)
[2024-07-10] MEDS: oxyCODONE 5 MG Tablet PO (22:45)
[2024-07-10] MEDS: Lactobacillis Acidophilus 1 CAP PO (23:56)
[2024-07-11 02:44] VITALS: BP 112/51; PULSE 63; RESP 18; TEMP 36.6; O2SAT 98
[2024-07-11 04:54] VITALS: BP 105/64; PULSE 64; RESP 16; TEMP 36.6; O2SAT 97
[2024-07-11] MEDS: Acetaminophen 325 MG Tablet 650 MG PO ×2 (04:55→17:43)
[2024-07-11] MEDS: oxyCODONE 5 MG Tablet PO ×3 (04:56→17:44)
[2024-07-11] MEDS: Lactobacillis Acidophilus 1 CAP PO ×3 (04:57→21:14)
[2024-07-11] MEDS: BALSALAZIDE DISODIUM 750 MG CAPSULE 2250 MG PO ×3 (04:57→21:14)
[2024-07-11] MEDS: metroNIDAZOLE 500 MG/100 ML BAG 100 MG IV ×3 (04:57→22:18)
[2024-07-11 07:31] LABS: Absolute Lymphocyte Count 1.16 X10^3/uL (0.83-4.51); Absolute Neutrophil Count 8.4 X10^3/uL (2.0-7.7); Basophil# 0.03 X10^3/uL; Basophil% 0.3 % (0-1); Eosinophil# 0.39 X10^3/uL; Eosinophils% 3.4 % (0-5); Hemoglobin 14.6 g/dL (13.0-16.5); Lymphocyte # 1.16 X10^3/ul (0.83-4.51); Lymphocyte % 10.2 % (19-41); Mean Corp Hgb Conc 33.2 g/dL (32-36); Mean Corpuscular Hgb 31.6 pg (27.0-32.0); Mean Corpuscular Volume 95.2 fL (80-94); Mean Platelet Vol. 9.6 fl (6.2-12.0); Monocyte# 1.33 X10^3/uL; Monocyte% 11.7 % (0-10); NRBC Flagged by Analyzer 0 % (0-5); Neutrophil # 8.41 X10^3/uL (2.7-7.7); Neutrophil % 73.9 % (47-70); Platelet Count 201 K/mm3 (150-450); RBC Distribution Width CV 13.2 % (11.6-14.6); RBC Distribution Width SD 46.9 fl (35.1-43.9); Red Blood Count 4.62 M/mm3 (4.6-6.2); White Blood Count 11.4 K/mm3 (4.4-11.0)
[2024-07-11 08:04] LABS: ALB/GLOB Ratio 1.1 RATIO (0.9-2.4); AST(SGOT) 33 U/L (<=37); Alanine Aminotransfer ALT/SGPT 13 U/L (<=46); Alkaline Phosphatase 74 U/L (40-129); Anion Gap 11 (5-15); BUN 8 mg/dL (4-19); Calcium,Total 7.4 mg/dL (7.6-11.0); Carbon Dioxide 19.6 mmol/L (21.0-32.0); Chloride 106 mmol/L (98-108); Creatinine, Serum 0.98 mg/dL (0.70-1.20); EST Glomerular Filtration Rate 90 (>60); Estimated Creatinine Clearance 75.05 ml/min (50-250); Globulin 2.8 g/dL (2.2-4.2); Glucose 85 mg/dL (70-99); Potassium 4.3 mmol/L (3.3-5.1); Protein, Total 5.8 g/dL (5.9-8.4); Sodium Level 136 mmol/L (133-145)
--- NOTE | 2024-07-11 09:43 | PCM.PN.HOSP ---
Reason for Visit Reason for Visit: Diagnoses Diverticulitis of intestine, part unspecified, without perforation or abscess without bleeding (07/10/24) Unspecified abdominal pain (07/10/24) Objective Data Objective Data Vital Signs: Vital Signs Temp Pulse Resp BP Pulse Ox O2 Del Method 97.9 F 64 16 105/64 97 Room Air 07/11/24 04:54 07/11/24 04:54 07/11/24 04:54 07/11/24 04:54 07/11/24 04:54 07/11/24 04:54 Oxygen Delivery Method Room Air Weight: 167 lb Body Mass Index (BMI) 26.9 Intake & Output: Intake and Output for Last 24 Hours 07/09/24 07/10/24 07/11/24 23:59 23:59 23:59 Intake Total 1295.83 / 1295.83 100 / 100 Balance 1295.83 / 1295.83 100 / 100 Lab / Micro Data 07/11/24 06:45 07/11/24 06:45 Labs: Laboratory Results - last 24 hr 07/10/24 15:24: WBC 11.4 H, RBC 5.09, Hgb 16.0, Hct 47.6, MCV 93.5, MCH 31.4, MCHC 33.6, RDW Std Deviation 44.5 H, RDW Coeff of Minnie 13.0, Plt Count 238, MPV 9.6, Immature Gran % (Auto) 0.400, Neut % (Auto) 74.8 H, Lymph % (Auto) 10.9 L, [place] % (Auto) 11.5 H, Eos % (Auto) 2.1, Baso % (Auto) 0.3, Absolute Neuts (auto) 8.6 H, Absolute Lymphs (auto) 1.24, Nucleated RBC % 0, Sodium 136, Potassium 4.1, Chloride 101, Carbon Dioxide 23.7, Anion Gap 11, BUN 11, Creatinine 1.07, Estim Creat Clear Calc 68.74, Est GFR (MDRD) Non-Af 81, BUN/Creatinine Ratio 10.4, Glucose 97, Lactic Acid < 1.0, Calcium 9.0, Total Bilirubin 1.74 H, Direct Bilirubin 0.68 H, AST 39 H, ALT 16, Alkaline Phosphatase 98, Total Protein 6.9, Albumin 4.2, Globulin 2.7, Urine Color Rob[place], Urine Clarity Clear, Urine pH 5.0, Ur Specific [place] 1.025, Urine Protein 30 H, Urine Glucose (UA) Normal, Urine Ketones 150 A*, Urine Occult Blood Negative, Urine Nitrite Negative, Urine Bilirubin 1 H, Urine Urobilinogen 1 H, Ur Leukocyte Esterase 25 H, Urine RBC 0 SEEN, Urine WBC 0-5 SEEN, Ur Squamous Epith Cells 0 SEEN, Urine Bacteria 1+, Urine Mucus 2+ 07/11/24 06:45: WBC 11.4 H, RBC 4.62, Hgb 14.6, Hct 44.0, MCV 95.2 H, MCH 31.6, MCHC 33.2, RDW Std Deviation 46.9 H, RDW Coeff of Minnie 13.2, Plt Count 201, MPV 9.6, Immature Gran % (Auto) 0.500, Neut % (Auto) 73.9 H, Lymph % (Auto) 10.2 L, [place] % (Auto) 11.7 H, Eos % (Auto) 3.4, Baso % (Auto) 0.3, Absolute Neuts (auto) 8.4 H, Absolute Lymphs (auto) 1.16, Nucleated RBC % 0, Sodium 136, Potassium 4.3, Chloride 106, Carbon Dioxide 19.6 L, Anion Gap 11, BUN 8, Creatinine 0.98, Estim Creat Clear Calc 75.05, Est GFR (MDRD) Non-Af 90, BUN/Creatinine Ratio 8.0 L, Glucose 85, Calcium 7.4 L, Total Bilirubin 1.20, AST 33, ALT 13, Alkaline Phosphatase 74, Total Protein 5.8 L, Albumin 3.0 L, Globulin 2.8, Albumin/Globulin Ratio 1.1 Radiography Diagnostic Testing: Radiology Impression Abdomen/Pelvis CT 07/10/24 15:06 IMPRESSION: 1. Moderate acute uncomplicated colonic diverticulitis at the hepatic flexure. 2. Incidental findings as above. Reading Location: [facility] Physical Exam Narrative Seen and examined. Patient had first diverticulitis about 20 years ago and then had multiple episodes. This time he already had 15 days of Augmentin but is still has left lower quadrant abdominal pain. No fever Physical exam General: Alert, Oriented x3, Cooperative. BMI 27.0 kg/m?, overweight. HEENT: Atraumatic, PERRLA, EOMI, Normocephalic Oral: No Gingival or Mucosal Lesions/ Ulcerations Neck: Supple, No JVD, Negative Carotid Bruits Chest wall/Lungs: Air entry diminished in bilateral lung bases. No crepitation/rhonchi Cardiovascular: Regular rate, Regular Rhythm, Normal S1, Normal S2, No M/G/R Abdomen: Bowel Sounds Present, Soft, tenderness present to the left lower quadrant. Non-Distended : No dysuria. No renal angle tenderness. No suprapubic tenderness. Extremities: No edema, Capillary Refill Less than 3 Seconds Skin: No rashes, No breakdown Musculoskeletal: No Tenderness to Palpation of Joints or Extremities Neurological: Cranial nerves II-XII grossly intact, DTR 2+/4. No acute focal neurological deficit. Psych/Mental Status: Normal Affect, Appropriate. Assessment & Plan Assessment/Plan (1) Acute diverticulitis: (2) Abdominal pain: PLAN: Plan 58-year-old gentleman admitted with abdominal pain for about 3 weeks and completed 15 days course of Augmentin but is still abdominal pain . No fever. #Acute diverticulitis with history of microperforation due to diverticulitis in the past -CT of the abdomen and pelvis individually reviewed demonstrated moderate acute uncomplicated colonic diverticulitis hepatic flexure. GI consulted. Continue IV fluid, Cipro and Flagyl and pain medication. In the past he had microperforation from diverticulitis but it has healed. -Diet as tolerated. # Diarrhea and vomiting probably antibiotic induced: Patient had 2 weeks of Augmentin and had watery diarrhea. Stool for enteric pathogen panel, C. difficile, lactoferrin and occult blood negative. Lactobacillus ordered - # History of Crohn's disease - Follows in the GI office, per GI documentation patient does have history of Crohn's disease - Continue balsalazide #GERD -Continue PPI #DVT ppx: SCDs Charges/Coding Visit Charges Inpatient E&M: 25492 Subs Hosp L2
[2024-07-11 09:54] VITALS: BP 115/68; PULSE 59; RESP 16; TEMP 36.6; O2SAT 97
[2024-07-11] MEDS: 0.9% Normal Saline (1000mL) 1,000 ML 125 ML IV ×2 (10:09→20:50)
[2024-07-11] MEDS: Ciprofloxacin 400 MG/200 ML BAG 200 MG IV ×2 (10:41→21:15)
[2024-07-11] MEDS: Pantoprazole Sodium 20 MG Tablet PO (10:41)
--- NOTE | 2024-07-11 14:15 | CASEMGMT ---
RN CM Face to Face with patient for initial transition planning/care coordination assessment. RN CM introduced self and role at [facility]. Patient lying in bed, alert and oriented. Patient willing to participate in assessment and is able to answer all questions appropriately. Care providers, pharmacy, and demographics verified. Strata: 1 PCP: Michael Specialists: Friend, GI Preferred Pharmacy: [facility] Retail at discharge Insurance: [employer] Prescription Benefit: yes Living Will/HPOA: yes, Ra eveline Alvarez LNOK: Living Arrangements: Patient lives with in a single story home with 3 steps and railing to enter the home. Patient is independent at home. Transportation: self, DME/HHC: Patient denies DME in the home. No previous HHC or SNF. Patient wishes to discharge home, denies need for home health at this time. Patient states he has no further needs or concerns at this time. CM to follow for discharge planning needs that may arise. Disposition Plan: Patient to discharge home with family support and follow-up plans in place. Rosalinda JAVED, RN, CM
[2024-07-11 14:45] VITALS: BP 107/65; PULSE 65; RESP 16; TEMP 36.7; O2SAT 97
[2024-07-11 20:50] VITALS: BP 114/71; PULSE 58; RESP 16; TEMP 37; O2SAT 99
[2024-07-11] MEDS: MELATONIN 10 MG TABLET PO (21:14)
[2024-07-12 02:50] VITALS: BP 137/74; PULSE 65; RESP 16; TEMP 36.6; O2SAT 99
[2024-07-12] MEDS: Lactobacillis Acidophilus 1 CAP PO (05:48)
[2024-07-12] MEDS: BALSALAZIDE DISODIUM 750 MG CAPSULE 2250 MG PO (05:49)
[2024-07-12] MEDS: metroNIDAZOLE 500 MG/100 ML BAG 100 MG IV (05:49)
[2024-07-12] MEDS: Menthol/Lanolin/Calamine/Znox 113 GM Tube 1 APPLIC TOPICAL ×2 (05:50→08:55)
[2024-07-12] MEDS: 0.9% Normal Saline (1000mL) 1,000 ML 125 ML IV (05:50)
[2024-07-12 06:26] LABS: Absolute Neutrophil Count 5.6 X10^3/uL (2.0-7.7); Basophil# 0.05 X10^3/uL; Basophil% 0.6 % (0-1); Eosinophil# 0.45 X10^3/uL; Eosinophils% 5.4 % (0-5); Hematocrit 45.4 % (40-54); Hemoglobin 15.4 g/dL (13.0-16.5); Lymphocyte % 15.5 % (19-41); Mean Corp Hgb Conc 33.9 g/dL (32-36); Mean Corpuscular Hgb 31.8 pg (27.0-32.0); Mean Corpuscular Volume 93.6 fL (80-94); Mean Platelet Vol. 9.7 fl (6.2-12.0); Monocyte# 0.92 X10^3/uL; Monocyte% 10.9 % (0-10); NRBC Flagged by Analyzer 0 % (0-5); Neutrophil # 5.64 X10^3/uL (2.7-7.7); Platelet Count 230 K/mm3 (150-450); RBC Distribution Width CV 13.2 % (11.6-14.6); RBC Distribution Width SD 45.1 fl (35.1-43.9); Red Blood Count 4.85 M/mm3 (4.6-6.2); White Blood Count 8.4 K/mm3 (4.4-11.0)
[2024-07-12 07:15] LABS: Anion Gap 11 (5-15); BUN 4 mg/dL (4-19); BUN/Creat Ratio 4.7 RATIO (10-20); Calcium,Total 8.6 mg/dL (7.6-11.0); Carbon Dioxide 20.3 mmol/L (21.0-32.0); Chloride 108 mmol/L (98-108); EST Glomerular Filtration Rate 103 (>60); Estimated Creatinine Clearance 91.93 ml/min (50-250); Glucose 104 mg/dL (70-99); Sodium Level 138 mmol/L (133-145)
[2024-07-12] MEDS: Pantoprazole Sodium 20 MG Tablet PO (08:57)
[2024-07-12] MEDS: Ciprofloxacin 400 MG/200 ML BAG 200 MG IV (08:58)
[2024-07-12 09:00] VITALS: BP 128/69; PULSE 65; RESP 16; TEMP 36.7; O2SAT 98
--- NOTE | 2024-07-12 10:22 | DCINST_ITS ---
Discharge Instructions Diet Discharge Diet: Light diet - advance as tolerated (Advised soft diet for 5 days. Avoid hard and chewy food) DC O2, CPAP, BIPAP needs Home O2 Discharge instructions: No Dressing / Incision Discharge Activity: Return to Normal Activity Weight Bearing Status: Weight bearing as tolerated Dressing / Incision Call your doctor if you observe: Fever of 101 or Higher, Coldness, Increased Pain, Numbness or Tingling, Change in Color, Inability to urinate, Inability to have a bowel movement, Shortness of breath, Dizziness, Fainting spells, Swelling in the ankles, Chest pain, Prolonged hiccupping, Increased palpitations (irregular heartbeat) and Calf discomfort Follow Up Care When: IN 2 WEEKS Test Results: Test results from this visit will be discussed in further detail at your follow- up appointment, if applicable. Discharge Plan Admission Admit Date/Time: 07/10/24 17:26 Primary Reason for Your Visit: Acute diverticulitis Attending Provider: Benito Carmona Primary Care Provider: Kee Kendall Consulting Providers: Ritu Greene Discharge Orders/Prescriptions Prescriptions: New nicotine 21 mg/24 hr Patch 24 Hour 21 mg transdermal DAILY 28 Days Qty: 28 0RF L.acidoph,saliva-B.bif-S.therm 175 mg Capsule 1 cap PO BID Qty: 0 0RF Rx Instructions: Pfqp-voq-eomazyl for 2 WEEKS ciprofloxacin HCl 500 mg tablet 500 mg PO BID 7 Days Qty: 14 0RF metronidazole 500 mg tablet 500 mg PO Q8H 7 Days Qty: 21 0RF Continued dicyclomine 10 mg capsule 10 - 20 mg PO TID PRN (Reason: abdominal pain) omeprazole 20 mg capsule,delayed release(DR/EC) 20 mg PO DAILY balsalazide 750 mg capsule 2,250 mg PO TID betamethasone dipropionate 0.05 % cream 1 applic topical BID PRN (Reason: skin irritation) ergocalciferol (vitamin D2) 1,250 mcg (50,000 unit) capsule 1,250 mcg PO TH [place] Saline 0.65 % aerosol,spray 1 spray intranasal BID PRN (Reason: nasal congestion) Referrals / Follow Up: Luis Sandoval MD [Med Staff - Active Staff] - Within 1 Month (For recurrent diverticulitis) Kee Kendall MD [Primary Care Provider] - Friend,DO David [Med Staff - Active Staff] - Within 2 Weeks (For EGD and colonoscopy) Disposition Disposition (needs filled in before D/C Order can be placed): Home, Self Care
--- NOTE | 2024-07-12 10:30 | PCM.DC.SUM ---
Providers Date of Admission: 07/10/24 Date of Discharge: 07/12/24 Primary Care Physician: Dr. Kee Kendall MD Reason For Visit: ACUTE DIVERTICULITIS Diagnosis Discharge Diagnosis (1) Acute diverticulitis: Status: Acute Code(s): K57.92 - Diverticulitis of intestine, part unspecified, without perforation or abscess without bleeding (2) Abdominal pain: Status: Acute Code(s): R10.9 - Unspecified abdominal pain Plan 58-year-old gentleman admitted with abdominal pain for about 3 weeks and completed 15 days course of Augmentin but is still abdominal pain . No fever. #Acute diverticulitis with history of microperforation due to diverticulitis in the past -CT of the abdomen and pelvis individually reviewed demonstrated moderate acute uncomplicated colonic diverticulitis hepatic flexure. GI consulted. Continue IV fluid, Cipro and Flagyl and pain medication. In the past he had microperforation from diverticulitis but it has healed. -Diet as tolerated. 07/12: Patient states his abdominal pain is better, slightly in left upper and lower quadrant. Patient wants to go home. Discharged on 1 week of Cipro and Flagyl. [employer]ort F[employer]er consult for diet regarding diverticulosis and acute diverticulitis. Patient has appointment with Dr. Chapin for EGD and colonoscopy in the first week of July. Advised and referred to surgeon Dr. Sandoval for opinion regarding recurrent diverticulitis # Diarrhea and vomiting probably antibiotic induced: Patient had 2 weeks of Augmentin and had watery diarrhea. Stool for enteric pathogen panel, C. difficile, lactoferrin and occult blood negative. Lactobacillus ordered -: Advised [id number] lactobacillus/probiotic. # History of Crohn's disease - Follows in the GI office, per GI documentation patient does have history of Crohn's disease - Continue balsalazide #GERD -Continue PPI #DVT ppx: SCDs Discharge medication reconciliation done. Discharge follow-up instructions completed. Discharge process discussed with the patient and all questions were answered to patient's satisfaction. Follow with PCP in 1 to 2 weeks Total time spent, exact 35 minutes on discharge meds reconciliation, examination, coordination of care with nurses and ancillary staff, review of imaging and blood test and discussion with the patient on follow-up instructions. Medications at Discharge Home Medications dicyclomine 10 mg capsule 10 - 20 mg PO TID PRN abdominal pain 02/18/24 omeprazole 20 mg capsule,delayed release 20 mg PO DAILY 02/18/24 balsalazide 750 mg capsule 2,250 mg PO TID 07/10/24 betamethasone dipropionate 0.05 % topical cream 1 applic topical BID PRN skin irritation 07/10/24 ergocalciferol (vitamin D2) 1,250 mcg (50,000 unit) capsule 1,250 mcg PO TH 07/10/24 sodium chloride 0.65 % nasal spray aerosol (Even[place]ade Saline) 1 spray intranasal BID PRN nasal congestion 07/10/24 L.acidophil,salivari-Bifido bifidum-Strep thermoph 175 mg capsule 1 cap PO BID #0 caps 07/12/24 ciprofloxacin HCl 500 mg tablet 500 mg PO BID 1 week #14 tabs 07/12/24 metronidazole 500 mg tablet 500 mg PO Q8H 1 week #21 tabs 07/12/24 nicotine 21 mg/24 hr daily transdermal patch 21 mg transdermal DAILY 28 days #28 ea 07/12/24 Physical Exam Narrative Seen and examined. Complain of slight pain over left upper quadrant which much improved Patient had first diverticulitis about 20 years ago and then had multiple episodes. This time he already had 15 days of Augmentin but is still has left lower quadrant abdominal pain. No fever Physical exam General: Alert, Oriented x3, Cooperative. BMI 27.0 kg/m?, overweight. HEENT: Atraumatic, PERRLA, EOMI, Normocephalic Oral: No Gingival or Mucosal Lesions/ Ulcerations Neck: Supple, No JVD, Negative Carotid Bruits Chest wall/Lungs: Air entry diminished in bilateral lung bases. No crepitation/rhonchi Cardiovascular: Regular rate, Regular Rhythm, Normal S1, Normal S2, No M/G/R Abdomen: Bowel Sounds Present, Soft, mild tenderness over left upper quadrant. Non-Distended : No dysuria. No renal angle tenderness. No suprapubic tenderness. Extremities: No edema, Capillary Refill Less than 3 Seconds Skin: No rashes, No breakdown Musculoskeletal: No Tenderness to Palpation of Joints or Extremities Neurological: Cranial nerves II-XII grossly intact, DTR 2+/4. No acute focal neurological deficit. Psych/Mental Status: Normal Affect, Appropriate. Weight / BMI Weight Weight: 167 lb 0.002 oz Body Mass Index (BMI) 26.9 ABG / Lab / Microbiology Data 07/12/24 06:03 07/12/24 06:03 Laboratory: Laboratory Results - last 24 hr 07/12/24 06:03: WBC 8.4, RBC 4.85, Hgb 15.4, Hct 45.4, MCV 93.6, MCH 31.8, MCHC 33.9, RDW Std Deviation 45.1 H, RDW Coeff of Minnie 13.2, Plt Count 230, MPV 9.7, Immature Gran % (Auto) 0.600, Neut % (Auto) 67.0, Lymph % (Auto) 15.5 L, [place] % (Auto) 10.9 H, Eos % (Auto) 5.4 H, Baso % (Auto) 0.6, Absolute Neuts (auto) 5.6, Absolute Lymphs (auto) 1.30, Nucleated RBC % 0, Sodium 138, Potassium 4.0, Chloride 108, Carbon Dioxide 20.3 L, Anion Gap 11, BUN 4, Creatinine 0.80, Estim Creat Clear Calc 91.93, Est GFR (MDRD) Non-Af 103, BUN/Creatinine Ratio 4.7 L, Glucose 104 H, Calcium 8.6 Microbiology: Microbiology 07/10/24 05:05 Stool Clostridioides difficile (PCR) - Final 07/10/24 05:05 Stool Enteric Bacteriology - Final D/C Instructions Discharge Diet: Light diet - advance as tolerated (Advised soft diet for 5 days. Avoid hard and chewy food) Weight Bearing Status: Weight bearing as tolerated Call your doctor if you observe: Fever of 101 or Higher, Coldness, Increased Pain, Numbness or Tingling, Change in Color, Inability to urinate, Inability to have a bowel movement, Shortness of breath, Dizziness, Fainting spells, Swelling in the ankles, Chest pain, Prolonged hiccupping, Increased palpitations (irregular heartbeat) and Calf discomfort DC O2, CPAP, BIPAP Needs Home O2 Discharge instructions: No When: IN 2 WEEKS Meaningful Use Info Meaningful Use Meaningful Use Diagnoses (Choose all that apply): None applicable Ischemic Stroke Statin Dosing Therapy Reference: STATIN DOSE THERAPY REFERENCE: * Patients > 75 years receive moderate or high dose statin therapy. * Patients 75 years or YOUNGER should receive HIGH intensity statin dose unless contraindicated. You will be required to document reason for non-treatment if statin daily dose does not meet guidelines. HIGH DOSE STATIN THERAPY DAILY Atorvastatin > than or = to 40 mg Rosuvastatin > than or = to 20 mg Amlodipine + Atorvastatin > than or = to 2.5/40 mg Ezetimibe + Simvastatin 10/80 mg Simvastatin 80mg Discharge Plan Admission Admit Date/Time: 07/10/24 17:26 Primary Reason for Your Visit: Acute diverticulitis Attending Provider: Benito Carmona Primary Care Provider: Kee Kendall Consulting Providers: Ritu Greene Discharge Orders/Prescriptions Prescriptions: New nicotine 21 mg/24 hr Patch 24 Hour 21 mg transdermal DAILY 28 Days Qty: 28 0RF L.acidoph,saliva-B.bif-S.therm 175 mg Capsule 1 cap PO BID Qty: 0 0RF Rx Instructions: [id number]-pve-stmzptf for 2 WEEKS ciprofloxacin HCl 500 mg tablet 500 mg PO BID 7 Days Qty: 14 0RF metronidazole 500 mg tablet 500 mg PO Q8H 7 Days Qty: 21 0RF Continued dicyclomine 10 mg capsule 10 - 20 mg PO TID PRN (Reason: abdominal pain) omeprazole 20 mg capsule,delayed release(DR/EC) 20 mg PO DAILY balsalazide 750 mg capsule 2,250 mg PO TID betamethasone dipropionate 0.05 % cream 1 applic topical BID PRN (Reason: skin irritation) ergocalciferol (vitamin D2) 1,250 mcg (50,000 unit) capsule 1,250 mcg PO TH Evening [place]ade Saline 0.65 % aerosol,spray 1 spray intranasal BID PRN (Reason: nasal congestion) Referrals / Follow Up: Luis Sandoval MD [Med Staff - Active Staff] - Within 1 Month (For recurrent diverticulitis) Kee Kendall MD [Primary Care Provider] - David Chapin DO [Med Staff - Active Staff] - Within 2 Weeks (For EGD and colonoscopy) Disposition Disposition (needs filled in before D/C Order can be placed): Home, Self Care Charges/Coding Visit Charges Inpatient E&M: 88440 Disch Hosp >30min
== END 2024-07-12 12:12 | disposition home or self-care (01) | DRG 392 ==
LOC: ED 17:18 → MS3 17:42
PROVIDERS: Admitting Provider Internal Medicine; Emergency Provider Emergency Medicine; PCP Family Medicine; Referring Provider Emergency Medicine; Visit Provider Internal Medicine
DX: K57.32 Diverticulitis of large intestine without perforation or abscess without bleeding (principal); K50.90 Crohn's disease, unspecified, without complications; K21.9 Gastro-esophageal reflux disease without esophagitis; Z79.899 Other long term (current) drug therapy; Z87.891 Personal history of nicotine dependence; E55.9 Vitamin D deficiency, unspecified; Z86.19 Personal history of other infectious and parasitic diseases; R19.7 Diarrhea, unspecified; R11.10 Vomiting, unspecified
CPT/HCPCS: 36415; 74177; 80048; 80053; 80076; 81001; 83605; 85025; 87493; 87506; 96361; 96365; 96366; 96367; 96375; 97802; 99221; 99284; Q9967; A4216; G0378; J0744; J2405

== ENCOUNTER 2025-01-28 12:16 | Day surgery (SDC) | payer OTHER, SELFPAY ==
--- NOTE | 2025-01-26 13:52 | PAT.ANE_ITS ---
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 When Was Last Pacemaker Check QUESTION #4 FULL TEXT: You/Your Family Experience fever (hyperthermia) with Anesthesia Last Oral Intake Last Oral intake: Last Oral Intake NPO since Meds taken in AM with sips of water? 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 Female No 01/26/25 13:46 HX of Motion Sickness No 01/26/25 13:46 HX of N/V After Surgery No 01/26/25 13:46 Non-Smoker Yes 01/26/25 13:46 Duration of Surgery greater No 01/26/25 13:46 than 60 minutes Number of Risk Factors 1 01/26/25 13:46 PONV Score Low Risk 01/26/25 13:46 Height & Weight Height & Weight: Anesthesia: Height & Weight Height 5 ft 6 in 07/12/24 12:22 Respiratory Assessment Respiratory Assessment - bottle house cleaners supervisor: Respiratory Tract Infection Hx - 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 Has anyone observed you stop No 01/26/25 13:46 breathing during sleep? STOP Results Negative 01/26/25 13:46 QUESTION #5 FULL TEXT : Do you snore loudly (louder than talking or can be heard through closed doors)? 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 Specify any problems Hx of Preganancy in last 3 N/A 01/26/25 13:46 Months Nurse Filling Out Transfusion VCHRISTIN 01/26/25 13:46 & Questions: Date: 01/26/25 01/26/25 13:46 Time: 13:47 01/26/25 13:46 Patient unable to answer at this time (ie. 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 supervisor: /Reproductive Hx- bottle house cleaners supervisor Hx Now No 01/26/25 13:46 Gestational Age (in weeks): EDC: Hx Hx Para Hx Section SAB No 01/26/25 13:46 Does the father of the baby or his family experience fever w Father of the baby Malignant Hypertension history comment [facility] Medical History (Updated 01/26/25 @ 13:45 by Zee Dawson) Wears hearing aid Wears glasses History of Clostridium difficile infection Alcohol use Arthritis Back pain Gastric reflux Chewing tobacco nicotine dependence History of stress test Former smoker Clostridium difficile infection Diarrhea Vitamin D deficiency Segmental and somatic dysfunction of pelvic region Segmental and somatic dysfunction of thoracic region Segmental and somatic dysfunction of lumbar region Depression with anxiety Alcohol abuse Tobacco use disorder Home Medications Medication Instructions Recorded Last Taken Type dicyclomine 10 mg capsule 10 - 20 mg PO TID PRN abdomi nal 02/18/24 07/10/24 History pain omeprazole 20 mg capsule,delayed 20 mg PO DAILY 07/10/24 History release balsalazide 750 mg capsule 2,250 mg PO TID 07/10/24 History betamethasone dipropionate 0.05 % 1 applic topical BID PRN skin 07/10/24 Unknown History topical cream irritation bisacodyl 5 mg tablet 20 mg (4 x 5 mg) PO ONCE #4 tabs 01/06/25 Unknown Rx polyethylene glycol 3350 17 238 g PO ONCE #238 grams 1 Unknown Rx gram/dose oral powder Allergy/AdvReac Type Severity Reaction Status Date / Time erythromycin base Allergy Mild itching Verified 01/26/25 13:36 shellfish derived Allergy Swelling Verified 01/26/25 13:36 azithromycin AdvReac Intermediate Nausea Verified 01/26/25 13:36 Surgical History (Updated 01/26/25 @ 13:45 by Zee Dawson) Hx of tonsillectomy Hx of colonoscopy Social History Smoking Status: Current every day smoker tobacco type: smokeless tobacco alcohol intake: current alcohol intake frequency: 0-2 drinks per day substance use type: does not use what type of physical activity do you participate in: none Audit: Pertinent Findings Pertinent Findings Stress test pertinent findings: 05/2024: Negative stress test Recommendation Anesthesia Recommendation Anesthesia recommendation: OPTIMIZED for anesthesia
[2025-01-28] VITALS (9 sets, daily range): BP systolic 102–116; BP diastolic 70–78; PULSE 56–66; RESP 16; TEMP 36.2–37.3; O2SAT 98–100; BMI 25.5
[2025-01-28] MEDS: Lactated Ringers 1,000 ML 15 ML IV (12:56)
--- NOTE | 2025-01-28 13:21 | HP.PCM_ITS ---
HPI - General General Date of Admission: 01/28/25 Date of Service: 01/28/25 Chief Complaint: ulcerative colitis HPI Narrative USHA ALLEN, is a 59 M who presents for colonoscopy [facility] hospitalization 12.31.18-01.04.19 for diverticulitis with sigmoid perforation; emergent surgery was not elected and would explore this option if he became increasingly septic. GI with outside facility established previously who diagnosed UC. Balsalazide 750mg TID .06.06 Colonoscopy 04.10.19 through [facility] found anal fissure; mild inflammation with erythema and friability in descending colon; mild inflammation with erosions, erythema and friability in sigmoid colon; moderate inflammation with erosions, erythema, friability and granularity in recto-sigmoid colon; few small-mouthed diverticula in sigmoid colon. Colonoscopy 09.07.[address] Victoria found numerous diverticula through left colon; colonic spasm. Biopsy revealed ileal mucosa with focal surface erosion in the small bowel. Remaining biopsies without pathologic change. CT scan abd/pel 05.20.20 colonic diverticula consistent with diverticulosis, atherosclerotic calcification of abdominal aorta. Urgent care early 2021 for increased pain/discomfort and started on cipro/flagyl and dicyclomine and this was helpful after a couple of days. *[facility] established 06.06.21 Last flare of UC about a month prior to consult with increased pain and tenderness in the LLQ; he then starts a liquid diet which is usually helpful; periodically with constipated/solid stools he feels worse with lower abdominal pain/discomfort. Denies blood or mucous in his stools. He has not found any particular triggers. Takes omeprazole 20mg QD which is moderately helpful but he does notice some breakthrough symptoms associated with foods. Stool studies were positive for CDifficile PCR. Negative for C. Difficile ag and toxin, stool lactoferrin and enteric pathogen panel. Vancomycin . Biochemical CMP, LFT, CRP, LDH, stool calprotectin, stool giardia, GAME, VERNON, ANCA, JUAN comp, celiac WNL. Hemoglobin elevated 16.7 Stool testing 07.14.21 lactoferrin +. Calprotectin, giardia, C. Difficile, enteric pathogen WNL. OV 08.02.21 doing better than previously. Loose stools continue weekly but feels is triggered by diet choices. Some LLQ pain/discomfort that resolves with use of dicyclomine. Start probiotic, change to famotidine. OV 8.5.22 with postprandial upper abdominal bloating/tightness. Urgent care seen who started Omeprazole 40mg which is helpful. Stool are becoming formed with noted increase of lower abdominal discomfort. Urgent care started antibiotics which were helpful. Biochemical CRP, ESR. IBD [facility] suggestive of Crohn’s (apANCA, Kayy, ALCA, AMCA) Stool testing lactoferrin, calprotectin WNL Agile Capsule . with no retained agile capsule seen. Capsule endoscopy .10.07 with mild enteritis seen at 26 minutes; otherwise unremarkable exam without recommendation based on this study. OV 10..22 symptoms have improved slightly since last visit. He states that he started taking honey and tumeric and this has seemed to decreased his abdominal pain and bloating, especially in LLQ. Patient reports that he notices he feels better when his stools are loose and soft but has increased pain if they get harder. Patient continues to take omeprazole for GERD. States he had one episode of severe reflux that caused him to wake up in the middle of the night and vomit. continue turmeric and honey; super greens; balsalazide OV 1.20.23 Reports bloating intermittently with increase of salads and noted with beer intake; has been using GasXwithout improvement. With his current regiment with turmeric, honey, super greens, kimchi and balsalazide he is feeling very good. Stools have been soft/formed and occur approximately 2 times a day. Historically when he is this consistent with BM he has increased LLQ abdominal pain. Biochemical CBC, ESR, CMP, CRP WNL. Stool lactoferrin, C.Difficile, calprotectin WNL. States that overall he is feeling well. States that he continues to fluctuate between diarrhea and constipation. He also has had a few episodes of nausea and vomiting. States that he is occasionally having some difficulty swallowing and is not sure if this is due to acid reflux or something else. OV 5.31.24 pt reports that he was having an increase in bloating which was causing indigestion and making him nauseated. He states that he has been feeling better in the past few days. Reports 2 formed bm per day; denies blood in the stool. Continues with balsalazide and dicyclomine. States that he will sometimes take pantoprazole and sometimes take omeprazole. Antibody test for Crohn's disease had came back with a tendency for aggressive behavior such as fistulizing or stricturing disease. He underwent capsule endoscopy and there was no disease activity in his small bowel. At this time it is a presumption that he has inflammatory bowel disease of the colon that were treating with balsalazide. We will not make any changes in this regimen at this time, except for Aloe vera and vitamin d. Fecal lactoferrin and it was negative along with a normal CRP and improving bowel function. Breakthrough gastroesophageal reflux disease. OV 02.18.24 Occ heartburn and with severe episodes vomiting, then will feel better. Omeprazole ineffective. Pantoprazole taken in past without success. Rolaids PRN helpful. Constipation with occ diarrhea. Occ gas and bloating, possibly dependent on diet. Has stopped Balsalazide a few days ago and feels well. OV 5 [facility] hospitalization 07.10.24 - 07.12.24 abd pain x3 weeks. Just recently finished a 10 day course of Augmentin abd/pelvis CT 07.10.24 1. Moderate acute uncomplicated colonic diverticulitis at the hepatic flexure. 2. Incidental findings as above. OV 07.17.24 pt reports continued lower left sided pain and some all over abdominal aching. Would like to review lab work from hospital stay. Continues with Balsalazide TID. [facility] hospitalization 12.31.18-01.04.19 for diverticulitis with sigmoid perforation; emergent surgery was not elected and would explore this option if he became increasingly septic. GI with outside facility established previously who diagnosed UC. Balsalazide 750mg TID 2.06.06 Colonoscopy 04.10.19 through [facility] found anal fissure; mild inflammation with erythema and friability in descending colon; mild inflammation with erosions, erythema and friability in sigmoid colon; moderate inflammation with erosions, erythema, friability and granularity in recto-sigmoid colon; few small-mouthed diverticula in sigmoid colon. Colonoscopy 09.07.[address] Victoria found numerous diverticula through left colon; colonic spasm. Biopsy revealed ileal mucosa with focal surface erosion in the small bowel. Remaining biopsies without pathologic change. CT scan abd/pel .07.07 colonic diverticula consistent with diverticulosis, atherosclerotic calcification of abdominal aorta. Urgent care early 2021 for increased pain/discomfort and started on cipro/flagyl and dicyclomine and this was helpful after a couple of days. *[facility] established 3. Last flare of UC about a month prior to consult with increased pain and tenderness in the LLQ; he then starts a liquid diet which is usually helpful; periodically with constipated/solid stools he feels worse with lower abdominal pain/discomfort. Denies blood or mucous in his stools. He has not found any particular triggers. Takes omeprazole 20mg QD which is moderately helpful but he does notice some breakthrough symptoms associated with foods. Stool studies were positive for CDifficile PCR. Negative for C. Difficile ag and toxin, stool lactoferrin and enteric pathogen panel. Vancomycin . Biochemical CMP, LFT, CRP, LDH, stool calprotectin, stool giardia, GAME, VERNON, ANCA, JUAN comp, celiac WNL. Hemoglobin elevated 16.7 Stool testing 07.14.21 lactoferrin +. Calprotectin, giardia, C. Difficile, enteric pathogen WNL. OV 5.. doing better than previously. Loose stools continue weekly but feels is triggered by diet choices. Some LLQ pain/discomfort that resolves with use of dicyclomine. Start probiotic, change to famotidine. OV 8.08.07 with postprandial upper abdominal bloating/tightness. Urgent care seen who started Omeprazole 40mg which is helpful. Stool are becoming formed with noted increase of lower abdominal discomfort. Urgent care started antibiotics which were helpful. Biochemical CRP, ESR. IBD [facility] suggestive of Crohn’s (apANCA, Kayy, ALCA, AMCA) Stool testing lactoferrin, calprotectin WNL Agile Capsule 11.15.2021 with no retained agile capsule seen. Capsule endoscopy .10.07 with mild enteritis seen at 26 minutes; otherwise unremarkable exam without recommendation based on this study. OV 01.13. symptoms have improved slightly since last visit. He states that he started taking honey and tumeric and this has seemed to decreased his abdominal pain and bloating, especially in LLQ. Patient reports that he notices he feels better when his stools are loose and soft but has increased pain if they get harder. Patient continues to take omeprazole for GERD. States he had one episode of severe reflux that caused him to wake up in the middle of the night and vomit. continue turmeric and honey; super greens; balsalazide OV 1.. Reports bloating intermittently with increase of salads and noted with beer intake; has been using GasXwithout improvement. With his current regiment with turmeric, honey, super greens, kimchi and balsalazide he is feeling very good. Stools have been soft/formed and occur approximately 2 times a day. Historically when he is this consistent with BM he has increased LLQ abdominal pain. Biochemical CBC, ESR, CMP, CRP WNL. Stool lactoferrin, C.Difficile, calprotectin WNL. States that overall he is feeling well. States that he continues to fluctuate between diarrhea and constipation. He also has had a few episodes of nausea and vomiting. States that he is occasionally having some difficulty swallowing and is not sure if this is due to acid reflux or something else. OV 531.24 pt reports that he was having an increase in bloating which was causing indigestion and making him nauseated. He states that he has been feeling better in the past few days. Reports 2 formed bm per day; denies blood in the stool. Continues with balsalazide and dicyclomine. States that he will sometimes take pantoprazole and sometimes take omeprazole. Antibody test for Crohn's disease had came back with a tendency for aggressive behavior such as fistulizing or stricturing disease. He underwent capsule endoscopy and there was no disease activity in his small bowel. At this time it is a presumption that he has inflammatory bowel disease of the colon that were treating with balsalazide. We will not make any changes in this regimen at this time, except for Aloe vera and vitamin d. Fecal lactoferrin and it was negative along with a normal CRP and improving bowel function. Breakthrough gastroesophageal reflux disease. OV 12.24 Occ heartburn and with severe episodes vomiting, then will feel better. Omeprazole ineffective. Pantoprazole taken in past without success. Rolaids PRN helpful. Constipation with occ diarrhea. Occ gas and bloating, possibly dependent on diet. Has stopped Balsalazide a few days ago and feels well. OV 5.1.25 [facility] hospitalization 4.24.25 - 4.25 abd pain x3 weeks. Just recently finished a 10 day course of Augmentin abd/pelvis CT 07.10.24 1. Moderate acute uncomplicated colonic diverticulitis at the hepatic flexure. 2. Incidental findings as above. OV 5.04.12 pt reports continued lower left sided pain and some all over abdominal aching. Would like to review lab work from hospital stay. Continues with Balsalazide TID. OV 01.06.25 pt reports LUQ discomfort; describes as a tight / heavy feeling. pt reports alternating bowel movements. States that Omeprazole is helpful. ESR / CRP Calp / Lact Serum / AB 04.04.2312.05 19 / - -- / -- 59-year-old male with a known history of ulcerative colitis (UC), currently managed with balsalazide, and recurrent diverticulitis. He presents for a routine follow-up visit. The patient reports no daily diarrhea. He denies any recent episodes of diverticulitis, with his last episode occurring approximately six months ago. His current symptoms primarily consist of intermittent abdominal pain, for which he uses dicyclomine frequently. He also reports symptoms consistent with constipation-predominant irritable bowel syndrome (IBS-C). * Abdominal Pain: The patient describes the pain as intermittent, crampy, and similar to previous episodes of abdominal pain. He notes that dicyclomine provides frequent, though not complete, relief. No other specific aggravating or alleviating factors noted. * Bowel Habits: Reports normal bowel function on most days, without daily diarrhea. * IBS-C: Continues to experience intermittent constipation, but does not use any specific treatment for this. * Diverticulitis: Last episode was six months ago. Denies current symptoms of fever, nausea, or significant change in bowel habits associated with diverticulitis. * IBD Symptoms: Reports no bloody diarrhea, fever, or weight loss. [facility] Medical History Wears hearing aid Wears glasses History of Clostridium difficile infection Alcohol use Arthritis Back pain Gastric reflux Chewing tobacco nicotine dependence History of stress test Former smoker Clostridium difficile infection Diarrhea Vitamin D deficiency Segmental and somatic dysfunction of pelvic region Segmental and somatic dysfunction of thoracic region Segmental and somatic dysfunction of lumbar region Depression with anxiety Alcohol abuse Tobacco use disorder Home Medications Medication Instructions Recorded Last Taken Type dicyclomine 10 mg capsule 10 - 20 mg PO TID PRN abdomi nal 02/18/24 07/10/24 History pain omeprazole 20 mg capsule,delayed 20 mg PO DAILY 01/27/25 History release balsalazide 750 mg capsule 2,250 mg PO TID 07/10/24 History betamethasone dipropionate 0.05 % 1 applic topical BID PRN skin 07/10/24 01/28/25 History topical cream irritation bisacodyl 5 mg tablet 20 mg (4 x 5 mg) PO ONCE #4 tabs 01/06/25 01/28/25 Rx polyethylene glycol 3350 17 238 g PO ONCE #238 grams 1 01/28/25 Rx gram/dose oral powder Allergy/AdvReac Type Severity Reaction Status Date / Time erythromycin base Allergy Mild itching Verified 01/28/25 12:50 shellfish derived Allergy Swelling Verified 01/28/25 12:50 azithromycin AdvReac Intermediate Nausea Verified 01/28/25 12:50 Surgical History Hx of tonsillectomy Hx of colonoscopy Social History Smoking Status: Current every day smoker tobacco type: smokeless tobacco alcohol intake: current alcohol intake frequency: 0-2 drinks per day substance use type: does not use what type of physical activity do you participate in: none ROS Constitutional Constitutional: Denies fatigue, fever(s), poor appetite, weight gain or weight loss Gastrointestinal Gastrointestinal: Denies belching, bloating, change in bowel habits, change in stool character, chewing difficulty, coffee ground emesis, constipation, cramping, diarrhea, dyspepsia, dysphagia, early satiety, excessive flatus, fecal incontinence, heartburn, hematemesis, hematochezia, hemorrhoids, loose stools, melena, nausea, odynophagia, rectal bleeding, tenesmus, vomiting or weight changes Vital Signs Vital Signs Vital Signs: 01/28/25 12:52 01/28/25 12:52 Temperature 97.1 F L Temperature Source Temporal Pulse Rate 63 Respiratory Rate 16 Respiratory Pattern Normal Blood Pressure 115/72 Blood Pressure Mean 86 Blood Pressure Source Monitor Blood Pressure Position Semi-Fowlers Blood Pressure Location Right Arm Pulse Ox 98 Oxygen Delivery Method Room Air Weight Weight: 163 lb 2.273 oz Body Mass Index (BMI) 25.5 Physical Exam Const alert, oriented x3, no apparent distress and healthy appearing General Appearance: cooperative GI normal to inspection, nondistended, normoactive bowel sounds, soft to palpation, non-tender and non-distended Percussion: normal to percussion Rectal Exam: deferred Assessment & Plan Assessment/Plan (1) Abdominal pain: (2) Crohn's disease: QUALIFIERS: Gastrointestinal tract location: small intestine Dige stive disease complication type: other complication Qualified Code(s): K50.018 - Crohn's disease of small intestine with other complication (3) Diverticular disease of large intestine with complication: PLAN: Assessment and Plan Assessment and Plan (1) Abdominal pain: Status: Acute (2) Diverticular disease of large intestine with complication: Status: Chronic (3) Crohn's disease: Status: Chronic Qualifiers: Gastrointestinal tract location: small intestine Digestive disease complication type: other complication Qualified Code(s): K50.018 - Crohn's disease of small intestine with other complication Plan: Assessment * Status of Inflammatory Bowel Disease (IBD): The patient was diagnosed with UC, but a recent [facility] lab was suggestive of Crohn's disease. Clinical differentiation between UC and CD can sometimes be challenging, but dis tinguishing features include CD affecting any part of the GI tract with transmural inflammation and skip lesions, versus UC limited to mucosal inflammation of the colon. A history of recurrent diverticulitis can also complicate the clinical picture, as inflammatory changes in the setting of diverticular disease (Segmental Colitis Associated with Diverticula, or SCAD) can sometimes mimic IBD. Given the discordant lab result and longstanding symptoms, a formal reassessment of the diagnosis is necessary. * Constipation-Predominant IBS (IBS-C): The patient reports intermittent constipation, consistent with his IBS-C diagnosis. Dicyclomine use, which has an anticholinergic effect, can contribute to constipation, and its effectiveness for his pain is incomplete. * Recurrent Diverticulitis: The patient reports no active diverticulitis, with the last episode six months ago. The history of recurrent episodes warrants continued vigilance. * Need for Colonoscopy: Given the change in diagnostic picture (suggestive CD) and the lack of a recent surveillance colonoscopy, an updated endoscopic evaluation is warranted. For patients with UC, routine surveillance colonoscopies are recommended at regular intervals, typically starting 8–10 years after symptom onset, due to an increased risk of colorectal cancer. The specific timing depends on the extent and duration of the disease, and since he has not had one in 5 years, he is due for a new one. Plan * Diagnostic Evaluation: * Colonoscopy with Biopsies: Schedule a full colonoscopy with biopsies to help definitively differentiate between UC, CD, and potential overlapping features with his diverticular disease. This is critical for confirming the diagnosis and tailoring the appropriate long-term management strategy. * Cross-sectional Imaging: Consider a CT or MR enterography, especially if the colonoscopy results are not fully definitive, to assess for small bowel involvement characteristic of CD. Medication Management: * Balsalazide: Continue current therapy. * Dicyclomine: Discuss the frequency of dicyclomine use and its potential contribution to constipation. Recommend exploring other management strategies for his IBS-C, such as dietary modifications (e.g., increased soluble fiber like psyllium, low FODMAP diet) or alternative medications. Symptom Management for IBS-C: * Diet: Educate the patient on the role of hydration and soluble fiber in managing constipation. Provide dietary recommendations tailored for IBS-C. * Pain Management: Discuss reducing the reliance on dicyclomine and exploring non-pharmacological options like stress reduction techniques. * Surveillance: * Diverticulitis: Continue to monitor for any new symptoms of diverticulitis. * IBD: Following the colonoscopy, establish an appropriate surveillance schedule based on the confirmed diagnosis and extent of disease. * Patient Education: * Explain the importance of the upcoming colonoscopy for clarifying his diagnosis and guiding future treatment. * Discuss the potential side effects of his medications, especially the anticholinergic effects of dicyclomine and the importance of monitoring renal function with balsalazide. * Provide resources on IBS-C management and dietary strategies. ] D/C Safety Score for UGIB Assessment Edison-Blatchford Bleeding Score (GBS): Stratifies upper GI bleeding patients who are "low-risk" and candidates for outpatient management. Hemoglobin, BUN, Recent Vital Signs: Pulse Rate 63 Blood Pressure 115/72 Score Interpretation: Score of 0: A GBS of 0 is a “Low Risk” GI bleed, and is highly sensitive (99.6% in a 2007 retrospective study) for predicting which patients did not require any “medical intervention”: blood transfusion, endoscopy, or surgery. This was confirmed in a 2009 Lancet study where patients with a score of 0 were actually discharged and had no GI bleeding mortality at 6 month followup Score above 0: A GBS greater than zero suggests a “High Risk” GI bleed that is likely to require “medical intervention”: transfusion, endoscopy, or surgery. A higher GBS also correlated with a higher likelihood of needing intervention Scores >/= 6 are associated with >50% risk of needing intervention D/C Safety Score for LGIB Assessment Assessment Tool: Readmission and adverse event risk in patients with acute lower GI bleeding. Hemoglobin and Recent Vital Signs: Pulse Rate 63 01/28/25 12:52 Blood Pressure 115/72 01/28/25 12:52 Score Interpretation: Probability Percentage of safe discharge (absence of rebleeding, blood transfusion, therapeutic intervention, 28 day readmission, or ) Score of 8 or below: Consider discharge, with appropriate precautions. Score of 9 or above: Discharge NOT recommended. Consider admission with further workup and resuscitation as necessary.
--- NOTE | 2025-01-28 13:28 | PRE.ANES_ITS ---
ASA Classification* ASA Classification ASA Classification: 2 (Crohns, tobacco use, GERD) Assessment & Plan Anesthesia* Anesthesia Assessment Anesthesia Assessment: Discussed sedation and/or anesthesia options, risks, benefits, and alternatives with patient/parents/legal guardian/POA. Questions invited. The patient/parents/legal guardian/POA seems to understand and agrees to proceed with anesthesia plan. Reviewed the physical assessment, medical history, allergy history and patient home medications list prior to surgery/procedure/anesthetic and documented any changes. Performed airway and anesthesia risk assessments. Anesthesia Type Anesthesia Type: MAC History Source History Obtained from:: Patient and Chart Anesthesia Focused Assessment* Temperature: 97.1 F Pulse Rate: 63 Blood Pressure: 115/72 Respiratory Rate: 16 Pulse Ox: 98 Oxygen Delivery Method: Room Air Airway Assessment Mouth opens: >3 cm Mallampati Score: II Neck Range of motion (ROM): Full ROM Labs Anesthesia Preop lab: CBC WBC, (4.4-11.0) 8.4 K/mm3 07/12/24, 06:03 RBC, (4.6-6.2) 4.85 M/mm3 07/12/24, 06:03 Hgb, (13.0-16.5) 15.4 g/dL 07/12/24, 06:03 Hct, (40-54) 45.4 % 07/12/24, 06:03 Plt Count, (150-450) 230 K/mm3 07/12/24, 06:03 CHEMISTRY Potassium, (3.3-5.1) 4.0 mmol/L 07/12/24, 06:03 Sodium, (133-145) 138 mmol/L 07/12/24, 06:03 BUN, (4-19) 4 mg/dL 07/12/24, 06:03 Creatinine, (0.70-1.20) 0.80 mg/dL 07/12/24, 06:03 Glucose, (70-99) 104 mg/dL H 07/12/24, 06:03 COAG Pre-Assessment Diagnosis/Proposed Procedure Planned Operative Procedure(s): COLONOSCOPY Anesthesia History 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 When Was Last Pacemaker Check QUESTION #4 FULL TEXT: You/Your Family Experience fever (hyperthermia) with Anesthesia Last Oral Intake Last Oral intake: Last Oral Intake NPO since 08:30 01/28/25 12:52 Meds taken in AM with sips of Yes 01/28/25 12:52 water? Meds patient instructed to take am of surgery PONV PONV - business and services instructor: PONV - business and services instructor Female No 01/26/25 13:46 HX of Motion Sickness No 01/26/25 13:46 HX of N/V After Surgery No 01/26/25 13:46 Non-Smoker Yes 01/26/25 13:46 Duration of Surgery greater No 01/26/25 13:46 than 60 minutes Number of Risk Factors 1 01/26/25 13:46 PONV Score Low Risk 01/26/25 13:46 Height & Weight Height & Weight: Anesthesia: Height & Weight Height 5 ft 7 in 01/28/25 12:52 Weight: 74 kg 01/28/25 12:52 Body Mass Index (BMI) 25.5 01/28/25 12:52 Respiratory Assessment Respiratory Assessment - business and services instructor: Respiratory Tract Infection Hx - business and services instructor Hx Respiratory Tract Infection No 01/26/25 13:46 STOP Sleep Apnea STOP Sleep Apnea - business and services instructor: STOP Sleep Apnea - business and services instructor Hx Hypertension No 01/26/25 13:46 Hx Sleep Apnea No 01/26/25 13:46 CPAP BIPAP Do you snore loudly (louder No 01/26/25 13:46 than talking or can be heard Do you often feel tired/ No 01/26/25 13:46 fatigued/ sleepy during daytime? Has anyone observed you stop No 01/26/25 13:46 breathing during sleep? STOP Results Negative 01/26/25 13:46 QUESTION #5 FULL TEXT : Do you snore loudly (louder than talking or can be heard through closed doors)? 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 Specify any problems Hx of Preganancy in last 3 N/A 01/26/25 13:46 Months Nurse Filling Out Transfusion VCHRISTIN 01/26/25 13:46 & Questions: Date: 01/26/25 01/26/25 13:46 Time: 13:47 01/26/25 13:46 Patient unable to answer at this time (ie. confused, unrespo /Reproduction History /Reproductive History - business and services instructor: /Reproductive Hx- business and services instructor Hx Now No 01/26/25 13:46 Gestational Age (in weeks): EDC: Hx Hx Para Hx Section SAB No 01/26/25 13:46 Does the father of the baby or his family experience fever w Father of the baby Malignant Hypertension history comment Active Medications Active Medications: Current Medications Generic Name Dose Route Start Last Admin Trade Name Freq PRN Reason Stop Dose Admin Lactated Ringer's 1,000 mls @ 15 mls/hr 01/28/25 12:30 01/28/25 12:56 IV 15 mls/hr .Q48H MADDIE Administration PFSH Medical History Wears hearing aid Wears glasses History of Clostridium difficile infection Alcohol use Arthritis Back pain Gastric reflux Chewing tobacco nicotine dependence History of stress test Former smoker Clostridium difficile infection Diarrhea Vitamin D deficiency Segmental and somatic dysfunction of pelvic region Segmental and somatic dysfunction of thoracic region Segmental and somatic dysfunction of lumbar region Depression with anxiety Alcohol abuse Tobacco use disorder Home Medications Medication Instructions Recorded Last Taken Type dicyclomine 10 mg capsule 10 - 20 mg PO TID PRN abdomi nal 02/18/24 07/10/24 History pain omeprazole 20 mg capsule,delayed 20 mg PO DAILY 01/27/25 History release balsalazide 750 mg capsule 2,250 mg PO TID 07/10/24 History betamethasone dipropionate 0.05 % 1 applic topical BID PRN skin 07/10/24 01/28/25 History topical cream irritation bisacodyl 5 mg tablet 20 mg (4 x 5 mg) PO ONCE #4 tabs 01/06/25 01/28/25 Rx polyethylene glycol 3350 17 238 g PO ONCE #238 grams 1 01/28/25 Rx gram/dose oral powder Allergy/AdvReac Type Severity Reaction Status Date / Time erythromycin base Allergy Mild itching Verified 01/28/25 12:50 shellfish derived Allergy Swelling Verified 01/28/25 12:50 azithromycin AdvReac Intermediate Nausea Verified 01/28/25 12:50 Surgical History Hx of tonsillectomy Hx of colonoscopy Social History Smoking Status: Current every day smoker tobacco type: smokeless tobacco alcohol intake: current alcohol intake frequency: 0-2 drinks per day substance use type: does not use what type of physical activity do you participate in: none Review of Systems (Anesthesia) ROS Narrative System reviewed and no additional complaints, except as documented. Physical Exam Const alert, oriented x3 and average body habitus Resp normal respiratory effort, normal air movement and clear to auscultation bilaterally Cardio regular rate, regular rhythm and no murmurs; Negative for diaphoretic
--- NOTE | 2025-01-28 13:45 | COLBX_PTH ---
PATIENT: USHA ALLEN LOC: EN U#:[id number] AGE/SX: 59/M ROOM: RE01/28/[address]: Dr. David Chapin DO : 1965 BED: DIS: 01/28/2025 SPEC #: [id number] RECD: 01/29/25 07:12 STATUS: ZUNILDA REMaria Fernanda #: [id number] ALFRED: 01/28/25 13:[address]: David Chapin DEPT: SURGICAL PATHOLOGY RECD BY: Artur Huitron ENTERED: 01/29/25 10:14 SP TYPE: COLON BX OT DR: Dr. Kee Kendall MD Tissues: A - Ileum, NOS B - COLON BIOPSY C - Transverse colon Procedures: Surgery Specimen Level IV HEADER OPERATION: Colonoscopy with biopsy, polypectomy PRE-OP DIAGNOSIS: Abdominal pain, diverticular disease of large intestine with complication, Crohn's disease TISSUE SUBMITTED: A- Terminal ileum biopsy, B- Random colon biopsy, C- Transverse colon polyp MICROSCOPIC DIAGNOSIS A. Small intestine, terminal ileum, biopsies: - Benign without active inflammation or architectural distortion B. Large intestine, random: * Benign colonic mucosa without active inflammation or architectural distortion C. Large intestine, transverse polyp: * Tubular adenoma MICROSCOPIC DESCRIPTION Slides are reviewed. GROSS DESCRIPTION A. Received in fixative is one container labeled with the patient's name and designated "Terminal ileum biopsy." The specimen consists of three irregular fragments of lopez tissue, each measuring 0.3 cm. The specimen is totally submitted in one cassette. B. Received in fixative is one container labeled with the patient's name and designated "Random colon biopsy." The specimen consists of multiple irregular fragments of lopez tissue that in aggregate measure 1 x 0.8 x 0.1 cm. The specimen is totally submitted in one cassette. C. Received in fixative is one container labeled with the patient's name and designated "Transverse colon polyp." The specimen consists of three irregular fragments of lopez tissue that measure 0.2 to 0.5 cm. The specimen is totally submitted in one cassette. IL 01/29/2025 CPT:56935x3
--- NOTE | 2025-01-28 15:13 | PCM.POST.ANE ---
Anesthesia: Postop Eval I Current Vital Signs Temperature: 98.2 F Pulse Rate: 64 Blood Pressure: 116/73 Respiratory Rate: 16 Pulse Ox: 98 Oxygen Delivery Method: Room Air Assessment Airway patent: Yes Spontaneous unlabored respirations: Yes Mental status: Asleep nausea: No Vomiting: No Anesthesia Complication: No Fluid Hydration Crystalloid volume administer (ml): 600 Total IV fluid infused: 600 Progress Note Anesthesia document: Postop Eval 1 completed: Yes
--- NOTE | 2025-01-28 15:16 | OP.COLON_ITS ---
Patient Name: Santiago Alvarez Procedure Date: 01/28/2025 2:27 PM Date of : 1965 Age: 59 Procedure: Colonoscopy Indications: Generalized abdominal pain, Follow-up of diverticulitis Providers: David Chapin DO Referring MD: Kee Kendall MD Medicines: Monitored Anesthesia Care Patient Profile: This is a 59 year old male. Refer to note in patient chart for documentation of history and physical. Last Colonoscopy: several years ago. Complications: No immediate complications. Procedure: Pre-Anesthesia Assessment: - Prior to the procedure, a History and Physical was performed, and patient medications and allergies were reviewed. The patient is competent. The risks and benefits of the procedure and the sedation options and risks were discussed with the patient. All questions were answered and informed consent was obtained. Patient identification and proposed procedure were verified by the physician. Mental Status Examination: alert and oriented. Airway Examination: normal oropharyngeal airway and neck mobility. Respiratory Examination: clear to auscultation. CV Examination: normal. Prophylactic Antibiotics: The patient does not require prophylactic antibiotics. Prior Anticoagulants: The patient has taken no anticoagulant or antiplatelet agents. ASA Grade Assessment: II - A patient with mild systemic disease. After reviewing the risks and benefits, the patient was deemed in satisfactory condition to undergo the procedure. The anesthesia plan was to use monitored anesthesia care (MAC). Immediately prior to administration of medications, the patient was re-assessed for adequacy to receive sedatives. The heart rate, respiratory rate, oxygen saturations, blood pressure, adequacy of pulmonary ventilation, and response to care were monitored throughout the procedure. The physical status of the patient was re-assessed after the procedure. After I obtained informed consent, the scope was passed under direct vision. Throughout the procedure, the patient's blood pressure, pulse, and oxygen saturations were monitored continuously. The colonoscope was introduced through the anus and advanced to the terminal ileum. The colonoscopy was performed without difficulty. The patient tolerated the procedure well. The quality of the bowel preparation was adequate. The terminal ileum, ileocecal valve, appendiceal orifice, and rectum were photographed. Scope In: 2:47:55 PM Scope Withdrawal Time 0 hours 10 minutes 59 seconds Scope Out: 3:01:57 PM Total Procedure Duration Time 0 hours 14 minutes 2 seconds Findings: The perianal and digital rectal examinations were normal. Multiple small and large-mouthed diverticula were found in the entire colon. A 7 mm polyp was found in the transverse colon. The polyp was sessile. The polyp was removed with a jumbo cold forceps. Resection and retrieval were complete. Verification of patient identification for the specimen was done. Estimated blood loss was minimal. An area of mildly congested mucosa was found in the recto-sigmoid colon, in the sigmoid colon, in the ascending colon and in the cecum. Biopsies were taken with a cold forceps for histology. Verification of patient identification for the specimen was done. Estimated blood loss was minimal. The terminal ileum appeared normal. Biopsies were taken with a cold forceps for histology. Verification of patient identification for the specimen was done. Estimated blood loss was minimal. Impression: - Diverticulosis in the entire examined colon. - One 7 mm polyp in the transverse colon, removed with a jumbo cold forceps. Resected and retrieved. - Congested mucosa in the recto-sigmoid colon, in the sigmoid colon, in the ascending colon and in the cecum. Biopsied. - The examined portion of the ileum was normal. Biopsied. Recommendation: - Discharge patient to home. - Resume previous diet. - Continue present medications. - Await pathology results. - Repeat colonoscopy in 5 years for surveillance. Procedure Code(s): --- Professional --- 23507, Colonoscopy, flexible; with biopsy, single or multiple CPT copyright 2021 [employer]. All rights reserved. The codes documented in this report are preliminary and upon project leader review may be revised to meet current compliance requirements. David Chapin DO 01/28/2025 3:15:41 PM This report has been signed electronically. Number of Addenda: 0 Note Initiated On: 01/28/2025 2:27 PM
--- NOTE | 2025-01-28 15:16 | OP.PROVAT_ITS ---
01/28/2025 Kee Kendall MD Re : Colonoscopy procedure for Santiago Alvarez Dear Dr. Kendall This procedure was performed on Tuesday, January 28, 2025. My impressions and recommendations are as follows: Impressions : - Diverticulosis in the entire examined colon. - One 7 mm polyp in the transverse colon, removed with a jumbo cold forceps. Resected and retrieved. - Congested mucosa in the recto-sigmoid colon, in the sigmoid colon, in the ascending colon and in the cecum. Biopsied. - The examined portion of the ileum was normal. Biopsied. Recommendations : - Discharge patient to home. - Resume previous diet. - Continue present medications. - Await pathology results. - Repeat colonoscopy in 5 years for surveillance. My findings are described in the full procedure note, which is enclosed. If I can be of further assistance, please feel free to contact me at . Sincerely, David Chapin, 01/28/2025 3:15:41 PM This report has been signed electronically.
--- NOTE | 2025-01-28 16:25 | PCM.POSTANE2 ---
Anesthesia Postop Eval I Sum Postop Eval Completion status Anesthesia document: Postop Eval 1 completed: Yes Anesthesia Postop Eval I Summary Anesthesia Postop Eval I Summary: Anesthesia Postop Eval I: Assessment Summary Airway patent Yes 01/28/25 15:14 [email or web address] Spontaneous unlabored Yes 01/28/25 15:14 [email or web address] respirations Mental status Asleep 01/28/25 15:14 [email or web address] nausea No 01/28/25 15:14 [email or web address] Vomiting No 01/28/25 15:14 [email or web address] Anesthesia Postop Eval I: Fluid Summary Crystalloid volume administer 600 01/28/25 15:14 [email or web address] (ml) Colloids volume administered ( ml) Blood Product volume administered (ml) Total IV fluid infused 600 01/28/25 15:14 [email or web address] Anesthesia Postop Eval I: Summary Notes Anesthesia Complication No 01/28/25 15:14 [email or web address] Anesthesia Complication Comment: Post-operative progress note Anesthesia: Postop Eval II Evaluation Mental status: Awake Pain Level: 0 nausea: No Vomiting: No Complications Anesthesia Complication: No
== END 2025-01-28 15:56 | disposition home or self-care (01) ==
LOC: EN 12:17 → AC 12:18
PROVIDERS: PCP Family Medicine; Referring Provider Family Medicine; Visit Provider Internal Medicine Gastroenterology
DX: D12.3 Benign neoplasm of transverse colon (principal); K50.018 Crohn's disease of small intestine with other complication; K57.30 Diverticulosis of large intestine without perforation or abscess without bleeding; K21.9 Gastro-esophageal reflux disease without esophagitis; Z79.899 Other long term (current) drug therapy; F17.220 Nicotine dependence, chewing tobacco, uncomplicated
CPT/HCPCS: 45380; 88305; J2405